=== PATIENT | male | born 1955 | race Caucasian/White ===

== ENCOUNTER 2020-04-30 14:10 | Inpatient (IN) | payer OTHER ==
[~2020-04-30] VITALS: Ht 185.4 cm; Wt 61.2 kg
--- NOTE | 2020-04-30 14:25 | NUR ---
ED Nurse Note: [facility]. hotel maintenance worker of pt called ambulance bc patient had SOB. He has history of emphysema, lung surgery, COPD. Pt is set up on monitor. O2 sat is 98% RA. Pt is alert and ox4.
[2020-04-30 14:30] VITALS: BP 123/71
[2020-04-30] MEDS ORDERED: Solu-MEDROL 125mg Inj IVP ONE (14:30)
--- NOTE | 2020-04-30 14:38 | Emergency Room Report ---
History of Present Illness General Chief Complaint: Upper Respiratory Illness Source: EMS Present Illness HPI Disclaimer: Please note that this report is being documented using DRAGON technology. This can lead to erroneous entry secondary to incorrect interpretation by the dictating instrument. HPI: 64-year-old male presents for reported shortness of breath. Patient has a history of COPD. He is an active smoker. Also history of TB which has been treated. He denies any fevers, nausea, vomiting, diarrhea. He denies any chest pain. He states his cough is chronic in nature. Does use Spiriva and albuterol. Currently living in a [facility]. PMH: COPD, TB, PSH: Reviewed Social Hx: Patient is an active smoker, active drinker. Allergies: Coded Allergies: No Known Allergies (Unverified , 04/30/20) COVID-19 Screening Contact w/high risk pt: No Experienced COVID-19 symptoms?: Yes COVID-19 Testing performed MEDICATION MANAGER: No - UNK Patient History Reviewed Nursing Documentation: PMH: Agreed; PSxH: Agreed Nursing Documentation-PMH Past Medical History: No History, Except For Hx COPD: Yes - TB, emphysema Review of Systems All Other Systems: negative except mentioned in HPI Physical Exam Vital Signs Date Time Temp Pulse Resp B/P (MAP) Pulse Ox O2 Delivery O2 Flow Rate FiO2 04/30/20 14:03 98.2 105 20 116/67 (83) 96 Nasal Cannula 3.0 Sp02 EP Interpretation: reviewed, other - Normal O2 saturation on oxygen General Appearance: well appearing, no apparent distress Head: normocephalic, atraumatic Eyes: bilateral eye PERRL, bilateral eye EOMI ENT: hearing grossly normal, moist mucus membranes Neck: full range of motion, supple Respiratory: lungs clear, normal breath sounds, no rhonchi, no respiratory distress, no retraction, no wheezing Cardiovascular #1: normal peripheral pulses, no murmur, tachycardia Gastrointestinal: non tender, soft, non-distended, no guarding Neurologic: alert, oriented x3, no focal defects Skin: normal color, warm/dry Medical Decision Making Diagnostic Impression: Primary Impression: COPD exacerbation Additional Impression: Suspected COVID-19 virus infection ER Course MDM: Differential diagnosis included but not limited to COPD exacerbation, COVID -19, pneumonia, to name a few Clinical course-basic laboratory studies were sent. Patient given IV steroids, IV antibiotics and coronavirus testing was sent. I spoke with the primary care doctor who wished to admit the patient for further observation. Will place on the medical floor for further observation. Labs - Laboratory Tests Test 04/30/20 14:49 White Blood Count 4.9 K/UL (4.8-10.8) Red Blood Count 4.72 M/UL (4.70-6.10) Hemoglobin 15.0 G/DL (14.2-18.0) Hematocrit 43.5 % (42.0-52.0) Mean Corpuscular Volume 92 FL (80-99) Mean Corpuscular Hemoglobin 31.7 PG (27.0-31.0) H Mean Corpuscular Hemoglobin Concent 34.4 G/DL (32.0-36.0) Red Cell Distribution Width 12.8 % (11.6-14.8) Platelet Count 123 K/UL (150-450) L Mean Platelet Volume 6.2 FL (6.5-10.1) L Neutrophils (%) (Auto) 57.0 % (45.0-75.0) Lymphocytes (%) (Auto) 21.0 % (20.0-45.0) Monocytes (%) (Auto) 13.2 % (1.0-10.0) H Eosinophils (%) (Auto) 7.2 % (0.0-3.0) H Basophils (%) (Auto) 1.6 % (0.0-2.0) Sodium Level 143 MMOL/L (136-145) Potassium Level 3.9 MMOL/L (3.5-5.1) Chloride Level 101 MMOL/L (98-107) Carbon Dioxide Level 37 MMOL/L (21-32) H Anion Gap 5 mmol/L (5-15) Blood Urea Nitrogen 8 mg/dL (7-18) Creatinine 0.6 MG/DL (0.55-1.30) Estimated Glomerular Filtration Rate > 60 mL/min (>60) Glucose Level 118 MG/DL (74-106) H Calcium Level 8.4 MG/DL (8.5-10.1) L Total Bilirubin 0.1 MG/DL (0.2-1.0) L Aspartate Amino Transferase (AST) 80 U/L (15-37) H Alanine Aminotransferase (ALT) 75 U/L (12-78) Alkaline Phosphatase 215 U/L (46-116) H Total Protein 7.3 G/DL (6.4-8.2) Albumin 3.5 G/DL (3.4-5.0) Globulin 3.8 g/dL Albumin/Globulin Ratio 0.9 (1.0-2.7) L On reevaluation: Patient was in no acute distress Plan-patient admitted to the medical floor Chest X-Ray Diagnostic Results Chest X-Ray Diagnostic Results : Chest X-Ray Ordered: Yes # of Views/Limited/Complete: 1 View Indication: Shortness of Breath EP Interpretation: Yes Interpretation: no effusion, no pneumothorax Impression: No acute disease Electronically Signed by: Velasquez Chen MD Last Vital Signs Date Time Temp Pulse Resp B/P (MAP) Pulse Ox O2 Delivery O2 Flow Rate FiO2 04/30/20 14:03 98.2 105 20 116/67 (83) 96 Nasal Cannula 3.0 Disposition: ADMITTED INPATIENT Condition: Serious Velasquez Chen M.D. Apr 30, 2020 14:38
[2020-04-30 15:22] LABS: BASOPHILS % (AUTO) 1.6 % (0.0-2.0); EOSINOPHILS % (AUTO) 7.2 % (0.0-3.0); HEMATOCRIT 43.5 % (42.0-52.0); MEAN CORPUSCULAR VOLUME 92 FL (80-99); MONOCYTES % (AUTO) 13.2 % (1.0-10.0); PLATELET COUNT 123 K/UL (150-450); RED BLOOD COUNT 4.72 M/UL (4.70-6.10); RED CELL DISTRIBUTION WIDTH 12.8 % (11.6-14.8); WHITE BLOOD COUNT 4.9 K/UL (4.8-10.8)
[2020-04-30 15:30] LABS: ANION GAP 5 mmol/L (5-15); BLOOD UREA NITROGEN 8 mg/dL (7-18); CALCIUM 8.4 MG/DL (8.5-10.1); CARBON DIOXIDE 37 MMOL/L (21-32); CHLORIDE 101 MMOL/L (98-107); CREATININE 0.6 MG/DL (0.55-1.30); POTASSIUM 3.9 MMOL/L (3.5-5.1); SODIUM 143 MMOL/L (136-145)
[2020-04-30 15:35] LABS: ALANINE AMINOTRANSFERASE 75 U/L (12-78); ALBUMIN 3.5 G/DL (3.4-5.0); ALBUMIN/GLOBULIN RATIO 0.9 (1.0-2.7); ALKALINE PHOSPHATASE 215 U/L (46-116); ASPARTATE AMINO TRANSFERASE 80 U/L (15-37); BILIRUBIN,TOTAL 0.1 MG/DL (0.2-1.0)
--- NOTE | 2020-04-30 15:43 | Diagnostic Imaging Report ---
Indication: Shortness of breath Technique: One view of the chest Comparison: none Findings: Lungs are hyperinflated. There are bilateral upper lobe bullous changes. The heart size is normal. Surgical hardware is seen in both shoulders. No infiltrates, effusions, or congestion Impression: No acute process
[2020-04-30 16:47] VITALS: BP 122/70
[2020-04-30] MEDS ORDERED: Azithromycin 500 MG in NS 275 ML IV ONE (17:30)
--- NOTE | 2020-04-30 17:37 | NUR ---
ED Nurse Note: Report given to Mariano SOLIS.
--- NOTE | 2020-04-30 18:00 | NUR ---
ED Nurse Note: Pt taken up to MS unit with all belongings. Pt alert and orientedx4. No acute distress.
--- NOTE | 2020-04-30 18:15 | NUR ---
CHARGE NURSE NOTE: Received patient from ED in stable condition from [facility](r/o COVID 19, swabbed in ER), no signs of pain or distress noted. Pt had $1497, sent with Nursing house supervisor Lee Ann and security to the hospital safe. Sacral rash, redness noted, picture taken by primary nurse Mariano. was called, message left that pt needs an adm. orders.
--- NOTE | 2020-04-30 19:06 | NUR ---
HAND-OFF: Patient is in the bed watching TV, O2 @ 2l via NC is inplace. No acute distress noted, call light is within reach. Report given to
[2020-04-30] MEDS ORDERED: Albuterol/Ipratropium 3ml neb HHN PRN (19:30)
[2020-04-30] MEDS ORDERED: Promethazine/Codeine 5ml UD ORAL PRN (19:30)
[2020-04-30] MEDS ORDERED: Miralax 17gm pkt ORAL PRN (19:30)
--- NOTE | 2020-04-30 19:30 | NUR ---
NURSE NOTES: Pt. received from IRMA Quintana. Pt. AAOx4, on NC 3L breathing even and unlabored, no complaints of pain at this time. IV right forearm 20g intact and patent. Belongings list checked and verified against patient's belongings. Rash noted on lower back, pictures taken. Pt. oriented to room and plan of care, call light provided, smoking policy reviewed. Bed is low and locked, side rails x2 up, bed alarm active, and call light in reach.
[2020-04-30 20:00] VITALS: BP 157/84
[2020-04-30] MEDS: cefTRIAXone 1 GM in D5W 55 ML IVPB SCH (20:05)
[2020-04-30] MEDS: Heparin 5000 units/ml inj SUBQ SCH (20:06)
[2020-05-01] VITALS: BP 150/84
[2020-05-01] MEDS ORDERED: GUAIFENESIN-CO118 M1 ORAL (00:51)
[2020-05-01] MEDS ORDERED: TRAZODONE HCL300 MG ORAL (00:51)
[2020-05-01] MEDS ORDERED: NITRO0.4 SL (00:51)
[2020-05-01 04:00] VITALS: BP 142/84
[2020-05-01 06:31] LABS: HEMATOCRIT 46.2 % (42.0-52.0); HEMOGLOBIN 15.5 G/DL (14.2-18.0); MEAN CORPUSCULAR VOLUME 92 FL (80-99); PLATELET COUNT 121 K/UL (150-450); RED BLOOD COUNT 5.01 M/UL (4.70-6.10); RED CELL DISTRIBUTION WIDTH 12.1 % (11.6-14.8); WHITE BLOOD COUNT 2.2 K/UL (4.8-10.8)
[2020-05-01 07:04] LABS: ALBUMIN 3.3 G/DL (3.4-5.0); ANION GAP 6 mmol/L (5-15); BLOOD UREA NITROGEN 10 mg/dL (7-18); CALCIUM 9.3 MG/DL (8.5-10.1); CARBON DIOXIDE 34 MMOL/L (21-32); CHLORIDE 96 MMOL/L (98-107); CREATININE 0.5 MG/DL (0.55-1.30); POTASSIUM 3.7 MMOL/L (3.5-5.1); SODIUM 136 MMOL/L (136-145)
--- NOTE | 2020-05-01 07:18 | NUR ---
HAND-OFF: Report given to IRMA Arias. Endorsed pt. pending sputum collection.
--- NOTE | 2020-05-01 07:43 | NUR ---
NURSE NOTES: PT AXOX4, CALM, RESTING IN BED. IN NO APPARENT DISTRESS AT THIS TIME. PT COMPLAINS OF SOB. RESPIRATIONS ARE EVEN AND UNLABORED AT THIS TIME PER HUMAN INTELLIGENCE. PT IS ON 3L NASAL CANNULA. PT STATES HE HAD A SEIZURE 2 WEEKS AGO AND SUSTAINED A FALL WITH NO INJURIES. BEDSIDE RAILS ARE PADDED. PT STATES HE IS UNABLE TO WALK, BUT RN OBSERVED PT IS ABLE TO MOVE LEGS AGAINST GRAVITY INDEPENDENTLY. BED IN LOWEST POSITION WITH BEDSIDE RAILS X2 RAISED. CALL LIGHT WITHIN REACH. URINAL AT BEDSIDE. WILL CONTINUE TO MONITOR.
[2020-05-01 08:00] VITALS: BP 136/71
[2020-05-01] MEDS: Heparin 5000 units/ml inj SUBQ SCH ×2 (08:11→20:23)
--- NOTE | 2020-05-01 10:32 | NUR ---
CASE MANAGEMENT:INITIAL REVIEW 64 YR OLD MALE BIBA FROM HOME CC;UPPER RESPIRATORY ILLNESS SI;COPD EXACERBATION. SUSPECTED COVID-19. 98.2 105 20 123/71 96% 3L NC CO2 37 BG 118 CA 8.4 AST 80 CXR ~ NO ACUTE PROCESS COVID-19 PCR ~ RESULT PENDING IS;ZITHROMAX IV SOLU-MEDROL IV ADMITTED TO MED SURG 04/30/20 @ 1823 MED SURG STATUS DCP;PATIENT IS FROM HOME
[2020-05-01] MEDS: Albuterol 90mcg Inhaler 8gm INH PRN ×2 (10:40→15:48)
--- NOTE | 2020-05-01 11:00 | NUR ---
NURSE NOTES: PT WAS EDUCATED TO REPOSITION OFTEN TO PREVENT SKIN BREAKDOWN. PILLOW TO ELEVATE HEELS. OPTIFOAM APPLIED TO BILATERAL HIPS AND HEELS FOR PROTECTION.
[2020-05-01 12:00] VITALS: BP 146/71
--- NOTE | 2020-05-01 14:29 | NUR ---
NURSE NOTES: DR DENISE AT BEDSIDE AND MADE AWARE OF WBC 2.2 TODAY. NO NEW ORDERS GIVEN.
[2020-05-01] MEDS ORDERED: TraZODone 50mg tab ORAL PRN (14:30)
--- NOTE | 2020-05-01 14:32 | Consultation ---
History of Present Illness General Date patient seen: May 01, 2020 Chief Complaint: Upper Respiratory Illness Present Illness HPI 64-year-old male hx of COPD, smoking, treated TB presented to ER for shortness of breath with some yellow phlegm. He denies any fevers, nausea, vomiting, diarrhea. He denies any chest pain. He looks very cachectic and slightly short of breath. Allergies: Coded Allergies: No Known Allergies (Unverified , 04/30/20) Medication History Scheduled Trazodone Hcl (Trazodone Hcl), 50 MG ORAL BEDTIME, (Reported) Scheduled PRN Guaifenesin/Codeine Phos* (Robitussin Ac*), 5 ML ORAL Q4H PRN for For Cough, ( Reported) Nitroglycerin 0.4MG table* (Nitroglycerin*), 0.4 MG SL .Q5MIN X 3 DOSES PRN for CHEST PAIN, (Reported) Patient History Healthcare decision maker N Resuscitation status Advanced Directive on File Past Medical/Surgical History Past Medical/Surgical History: (1) Severe protein-calorie malnutrition (2) Emphysema of lung Review of Systems All Other Systems: negative except mentioned in HPI Physical Exam General Appearance: WD/WN, no apparent distress Lines, tubes and drains: peripheral HEENT: normocephalic, atraumatic Neck: non-tender, normal alignment Respiratory/Chest: chest wall non-tender, lungs clear Breasts: no masses Cardiovascular/Chest: normal peripheral pulses Abdomen: normal bowel sounds Genitourinary/Rectal: normal genital exam Extremities: normal range of motion Last 24 Hour Vital Signs Date Time Temp Pulse Resp B/P (MAP) Pulse Ox O2 Delivery O2 Flow Rate FiO2 05/01/20 12:00 97.2 72 20 146/71 (96) 95 05/01/20 09:00 Nasal Cannula 3.0 05/01/20 08:00 98.1 84 20 136/71 (92) 96 05/01/20 04:00 97.9 80 18 142/84 (103) 97 05/01/20 00:00 97.3 78 20 150/84 (106) 96 04/30/20 21:59 Nasal Cannula 3.0 04/30/20 20:00 97.3 73 20 157/84 (108) 96 04/30/20 18:00 98.2 92 17 132/76 96 Nasal Cannula 2.0 04/30/20 16:47 98.2 90 18 122/70 99 Nasal Cannula 04/30/20 14:30 98.2 98 19 123/71 98 Nasal Cannula 04/30/20 14:30 98 19 Room Air 98 Intake and Output 04/30/20 05/01/20 19:00 07:00 Intake Total 655 ml Output Total 950 ml Balance -295 ml Intake Oral 600 ml IV Total 55 ml Output Urine Total 950 ml # Voids 4 Laboratory Tests Test 04/30/20 14:49 05/01/20 04:45 White Blood Count 4.9 K/UL (4.8-10.8) 2.2 K/UL (4.8-10.8) #L Red Blood Count 4.72 M/UL (4.70-6.10) 5.01 M/UL (4.70-6.10) Hemoglobin 15.0 G/DL (14.2-18.0) 15.5 G/DL (14.2-18.0) Hematocrit 43.5 % (42.0-52.0) 46.2 % (42.0-52.0) Mean Corpuscular Volume 92 FL (80-99) 92 FL (80-99) Mean Corpuscular Hemoglobin 31.7 PG (27.0-31.0) H 31.0 PG (27.0-31.0) Mean Corpuscular Hemoglobin Concent 34.4 G/DL (32.0-36.0) 33.6 G/DL (32.0-36.0) Red Cell Distribution Width 12.8 % (11.6-14.8) 12.1 % (11.6-14.8) Platelet Count 123 K/UL (150-450) L 121 K/UL (150-450) L Mean Platelet Volume 6.2 FL (6.5-10.1) L 6.0 FL (6.5-10.1) L Neutrophils (%) (Auto) 57.0 % (45.0-75.0) % (45.0-75.0) Lymphocytes (%) (Auto) 21.0 % (20.0-45.0) % (20.0-45.0) Monocytes (%) (Auto) 13.2 % (1.0-10.0) H % (1.0-10.0) Eosinophils (%) (Auto) 7.2 % (0.0-3.0) H % (0.0-3.0) Basophils (%) (Auto) 1.6 % (0.0-2.0) % (0.0-2.0) Sodium Level 143 MMOL/L (136-145) 136 MMOL/L (136-145) Potassium Level 3.9 MMOL/L (3.5-5.1) 3.7 MMOL/L (3.5-5.1) Chloride Level 101 MMOL/L (98-107) 96 MMOL/L (98-107) L Carbon Dioxide Level 37 MMOL/L (21-32) H 34 MMOL/L (21-32) H Anion Gap 5 mmol/L (5-15) 6 mmol/L (5-15) Blood Urea Nitrogen 8 mg/dL (7-18) 10 mg/dL (7-18) Creatinine 0.6 MG/DL (0.55-1.30) 0.5 MG/DL (0.55-1.30) L Estimat Glomerular Filtration Rate > 60 mL/min (>60) > 60 mL/min (>60) Glucose Level 118 MG/DL (74-106) H 180 MG/DL (74-106) H Calcium Level 8.4 MG/DL (8.5-10.1) L 9.3 MG/DL (8.5-10.1) Total Bilirubin 0.1 MG/DL (0.2-1.0) L Aspartate Amino Transf (AST/SGOT) 80 U/L (15-37) H Alanine Aminotransferase (ALT/SGPT) 75 U/L (12-78) Alkaline Phosphatase 215 U/L (46-116) H Total Protein 7.3 G/DL (6.4-8.2) Albumin 3.5 G/DL (3.4-5.0) 3.3 G/DL (3.4-5.0) L Globulin 3.8 g/dL Albumin/Globulin Ratio 0.9 (1.0-2.7) L Differential Total Cells Counted 100 Neutrophils % (Manual) 77 % (45-75) H Lymphocytes % (Manual) 17 % (20-45) L Monocytes % (Manual) 6 % (1-10) Eosinophils % (Manual) 0 % (0-3) Basophils % (Manual) 0 % (0-2) Band Neutrophils 0 % (0-8) Platelet Estimate Decreased L Platelet Morphology Normal Red Blood Cell Morphology Normal Phosphorus Level 3.0 MG/DL (2.5-4.9) Microbiology Date/Time Source Procedure Growth Status 04/30/20 17:00 Rectum Received Height (Feet): 6 Height (Inches): 1.00 Weight (Pounds): 130 Medications Current Medications Medications (Trade) Dose Ordered Sig/Martha Route PRN Reason Start Time Stop Time Status Last Admin Dose Admin Acetaminophen (Tylenol) 650 mg Q4H PRN ORAL T>100.5 04/30/20 19:30 05/30/20 19:29 Albuterol Sulfate (Proventil MDI) 2 puff Q4H PRN INH Shortness of Breath 05/01/20 07:30 07/30/20 07:29 05/01/20 10:40 Albuterol/ Ipratropium (Albuterol/ Ipratropium) 3 ml Q4H PRN HHN Shortness of Breath 04/30/20 19:30 05/05/20 19:29 Azithromycin 250 mg/Dextrose 275 ml @ 275 mls/hr Q24HRS IV 05/01/20 18:00 05/06/20 17:59 Ceftriaxone Sodium 1 gm/ Dextrose 55 ml @ 110 mls/hr Q24H IVPB 04/30/20 20:00 05/07/20 19:59 04/30/20 20:05 Dexamethasone (Decadron) 4 mg DAILY ORAL 05/01/20 09:00 05/31/20 08:59 05/01/20 08:06 Dextrose (Dextrose 50%) 25 ml Q30M PRN IV Hypoglycemia 04/30/20 19:30 07/29/20 19:29 Dextrose (Dextrose 50%) 50 ml Q30M PRN IV Hypoglycemia 04/30/20 19:30 07/29/20 19:29 Heparin Sodium (Porcine) (Heparin 5000 units/ml) 5,000 units EVERY 12 HOURS SUBQ 04/30/20 21:00 06/14/20 20:59 05/01/20 08:11 Ondansetron HCl (Zofran) 4 mg Q6H PRN IVP Nausea & Vomiting 04/30/20 19:30 05/30/20 19:29 05/01/20 14:13 Polyethylene Glycol (Miralax) 17 gm DAILYPRN PRN ORAL Constipation 04/30/20 19:30 05/30/20 19:29 Promethazine HCl/ Codeine (Phenergan with Codeine) 5 ml Q6H PRN ORAL cough 04/30/20 19:30 05/30/20 19:29 Theophylline (Carlos-Dur) 100 mg DAILY ORAL 05/01/20 15:00 07/30/20 14:59 Trazodone HCl (Desyrel) 50 mg HSPRN PRN ORAL INSOMNIA 05/01/20 14:30 05/31/20 14:29 Assessment/Plan Problem List: (1) COPD exacerbation ICD Codes: J44.1 - Chronic obstructive pulmonary disease with (acute) exacerbation SNOMED: 852606883 (2) Suspected COVID-19 virus infection ICD Codes: Z20.828 - Contact with and (suspected) exposure to other viral communicable diseases SNOMED: 794162423 (3) Emphysema of lung ICD Codes: J43.9 - Emphysema, unspecified SNOMED: 45351561 (4) Severe protein-calorie malnutrition ICD Codes: E43 - Unspecified severe protein-calorie malnutrition SNOMED: 341808860, 226879200, 933012822 Assessment/Plan: check sputum iv abx steroids titrate fio2 to sat of 92% Leighann Underwood MD May 01, 2020 14:32
[2020-05-01] MEDS: Theophylline ER 100mg ORAL SCH (15:42)
[2020-05-01 16:00] VITALS: BP 124/74
--- NOTE | 2020-05-01 16:57 | NUR ---
INSURANCE ALL AVAILABLE CLINICALS HAVE BEEN FAXED TO [facility] P: [phone] F: [phone]
[2020-05-01] MEDS: Azithromycin 250 MG in D5W 275 ML IV SCH (17:34)
--- NOTE | 2020-05-01 18:00 | NUR ---
NURSE NOTES: PT WAS GIVEN PRN IV ZOFRAN ORDERED. PT REPORTED FEELING QUEASY. UPON REASSESSMENT, PT STATED HE FELT MUCH BETTER, BUT STILL UNABLE TO TOLERATE FOOD. ONLY EATING SMALL BITES OF FOOD. RN ENCOURAGED PO FLUIDS THROUGHOUT THE DAY DUE TO DARK YELLOW URINE. WILL CONTINUE TO MONITOR.
--- NOTE | 2020-05-01 19:06 | NUR ---
HAND-OFF: Report given to Sasha VELAZQUEZ RN.
--- NOTE | 2020-05-01 19:19 | NUR ---
NURSE NOTES: Pt. received from IRMA Arias. Pt. AAOx4, breathing on NC 2L, no indications of respiratory distress and no complaints of pain. IV noted right forearm intact and patent, saline locked. Bed is low and locked, side rails x3 up, bed alarm active, and call light in reach.
--- NOTE | 2020-05-01 19:52 | History & Physical ---
History and Physical History & Physicial job number: [id number]. Vishal Tran MD May 01, 2020 19:52
[2020-05-01 20:00] VITALS: BP 124/79
[2020-05-01] MEDS: TraZODone 50mg tab ORAL SCH (20:22)
[2020-05-01] MEDS: cefTRIAXone 1 GM in D5W 55 ML IVPB SCH (20:22)
--- NOTE | 2020-05-01 21:45 | History and Physical Report ---
DATE OF ADMISSION: 04/30/2020 CHIEF COMPLAINT: Shortness of breath. HISTORY OF PRESENT ILLNESS: This is a 64-year-old gentleman with past medical history significant for chronic smoker with COPD, prior history of treated tuberculosis, who presented to the emergency department complaining of shortness of breath associated with yellowish phlegm. The patient denies any fever, chills, nausea, vomiting, diarrhea, or chest pain. He shortly after initial evaluation in the emergency room, the patient was admitted to the hospital with shortness of breath, possible due to acute COPD exacerbation as well as rule-out COVID-19 infection. PAST MEDICAL HISTORY/PAST SURGICAL HISTORY: As above. History of COPD and emphysema, severe protein-calorie malnutrition, and severe weakness. MEDICATIONS AT HOME: Please refer to medication reconciliation. ALLERGIES: No known drug allergies. SOCIAL HISTORY: The patient is an ex-smoker. Denies any alcohol or substance use. FAMILY HISTORY: Noncontributory. REVIEW OF SYSTEMS: Mostly as above. Denies any hematuria or hematochezia. PHYSICAL EXAMINATION: VITAL SIGNS: On admission, temperature is 98.2, pulse of 98, respirations 19, blood pressure 123/71. GENERAL: The patient is awake, responsive, in no acute distress, chronically ill-appearing. HEAD AND NECK: Pupils are equal and reactive to light. Extraocular movements intact. Neck was supple. No JVD. LUNGS: Good air entry. No wheezing or rales. HEART: S1, S2. Regular rhythm. No murmur or gallops. ABDOMEN: Soft, nondistended, nontender. Positive bowel sounds. EXTREMITIES: No cyanosis, clubbing, or edema. NEUROLOGIC: Cranial nerves II through XII grossly intact. Motor is 5/5 in all extremities. Gait was not assessed due to the patient's status. RECTAL: Refused and deferred. GENITOURINARY: Refused and deferred. PSYCHIATRIC: Mood and affect is intact. LABORATORY AND DIAGNOSTIC DATA: Laboratory on admission, WBC of 4.9, hemoglobin 15, hematocrit 43, and platelet is 123,000. Sodium 143, potassium 3.9, chloride 101, bicarb 37, BUN 8, creatinine 0.6, GFR greater than 60, and glucose is 118. Total bilirubin of 0.1, AST of 80, ALT of 75, alkaline phosphatase 215. Albumin is 2.5. Globulin is 3.8. Chest x-ray, no acute process. ASSESSMENT: 1. Shortness of breath, most likely secondary to the acute COPD exacerbation. 2. Rule out COVID-19 viral infection. 3. Chronic smoker with emphysematous lung. 4. Severe protein-calorie malnutrition. 5. Inability to ambulate. PLAN: Admit the patient to medical floor. We will follow up with broad-spectrum antibiotic with azithromycin and Rocephin. Nebulizer treatment. Code status is Full Code. DVT prophylaxis, heparin subcu. We will follow up with Dr. Underwood from Pulmonary/Critical Care and COVID-19 testing. We will consider discharge planning to the nursing facility, [facility]. We will follow up with HIV test. Vishal Tran M.D. DR: Rhett JOB#: [id number] CC:
[2020-05-02] VITALS: BP 117/65
--- NOTE | 2020-05-02 00:31 | NUR ---
NURSE NOTES: Pt. with minor complaints of nausea, offered antiemetic as ordered but pt. refused. Pt. able to tolerate PO fluids and 1/2 sandwich at this time, no subsequent complaints of nausea.
[2020-05-02 04:00] VITALS: BP 119/72
--- NOTE | 2020-05-02 06:09 | NUR ---
NURSE NOTES: Dr. Tran notified pt. is MRSA positive nares, no new orders.
[2020-05-02 06:18] LABS: BASOPHILS % (AUTO) 0.2 % (0.0-2.0); EOSINOPHILS % (AUTO) 0.5 % (0.0-3.0); HEMATOCRIT 47.1 % (42.0-52.0); HEMOGLOBIN 15.7 G/DL (14.2-18.0); LYMPHOCYTES % (AUTO) 21.3 % (20.0-45.0); MEAN CORPUSCULAR VOLUME 92 FL (80-99); PLATELET COUNT 140 K/UL (150-450); RED BLOOD COUNT 5.12 M/UL (4.70-6.10); WHITE BLOOD COUNT 4.8 K/UL (4.8-10.8)
[2020-05-02 06:29] LABS: ALANINE AMINOTRANSFERASE 124 U/L (12-78); ALBUMIN 3.5 G/DL (3.4-5.0); ALBUMIN/GLOBULIN RATIO 0.9 (1.0-2.7); ALKALINE PHOSPHATASE 138 U/L (46-116); ANION GAP 6 mmol/L (5-15); ASPARTATE AMINO TRANSFERASE 138 U/L (15-37); BILIRUBIN,TOTAL 0.4 MG/DL (0.2-1.0); BLOOD UREA NITROGEN 10 mg/dL (7-18); CARBON DIOXIDE 34 MMOL/L (21-32); CHLORIDE 98 MMOL/L (98-107); CREATININE 0.7 MG/DL (0.55-1.30); PHOSPHORUS 3.6 MG/DL (2.5-4.9); POTASSIUM 3.9 MMOL/L (3.5-5.1); SODIUM 138 MMOL/L (136-145)
--- NOTE | 2020-05-02 07:32 | NUR ---
HAND-OFF: Report given to IRMA Hickman.
[2020-05-02 08:00] VITALS: BP 112/69
--- NOTE | 2020-05-02 08:01 | NUR ---
NURSE NOTES: Patient awake, alert x4; on Nasal cannula 2 Liters, no sing of shortness of breath and no distress; no sing of chest pain; IV Right For-Arm TKO; side rails up x2, breaks engaged, bed at lowest position; Urinal within reach; will keep monitoring.
--- NOTE | 2020-05-02 08:52 | NUR ---
NURSE NOTES: Microbiology called and stated that 2 vials blood came back positive. One is gram positive cocci in clusters. The other came in and is positive for gram positive rods. WIll notify RN and MD.
[2020-05-02] MEDS: Heparin 5000 units/ml inj SUBQ SCH ×2 (09:00→21:28)
[2020-05-02] MEDS: Theophylline ER 100mg ORAL SCH (09:00)
--- NOTE | 2020-05-02 09:22 | NUR ---
NURSE NOTES: I was told by charge nurse, Silvio that, patient's blood culture bottle one is Gram positive Cocci in cluster and the 2nd bottle is Gram positive Rods; I communicated this microbiology results to MD Underwood; waiting for order;
--- NOTE | 2020-05-02 09:27 | NUR ---
NURSE NOTES: MD Branham is aware of the blood culture results which is reported by microbiology; waiting for order;
--- NOTE | 2020-05-02 09:51 | NUR ---
RD ASSESSMENT & RECOMMENDATIONS SEE CARE ACTIVITY FOR COMPLETE ASSESSMENT DAILY ESTIMATED NEEDS: Needs based on COPD, underweight/ 59kg 30-35 kcals/kg 3590-3024 total kcals 1-1.5 g protein/kg 59-89 g total protein 25-30 mL/kg 4849-3710 total fluid mLs NUTRITION DIAGNOSIS: Increased kcal/prot needs R/T underweight status, pulmonary dx as evidenced by BMI of 17.2, pt @ 71% IBW, h/o COPD. CURRENT DIET:REGULAR PO DIET RECOMMENDATIONS: Liberalized REGULAR/ texture as tolerated + Ensure Enlive TID w/ meals ADDITIONAL RECOMMENDATIONS: * Calibrated bedscale wt for accurate CBW * Monitor for continued nausea -> w/ continued nausea, consider add zofran ~30 mins prior to meal times -> add gingerale to tray * Ensure Enlive TID w/ meals * Monitor BGs closely while on Decadron, need for carb restriction * MVI x 1 once nausea resolves
[2020-05-02 12:00] VITALS: BP 118/70
[2020-05-02] MEDS ORDERED: Vancomycin 1.25gm/NS Premix IVPB ONE (13:00)
--- NOTE | 2020-05-02 13:56 | NUR ---
NURSE NOTES: Wound care nurse assessed patient's wound on the back and heels; Wound care provided; picture uploaded; patient tolerated well;
[2020-05-02 16:00] VITALS: BP 121/77
--- NOTE | 2020-05-02 17:05 | NUR ---
CASE MANAGEMENT:REVIEW SI;COPD EXACERBATION. COVID-19 RULE OUT~NOT DETECTED. 98.1 90 20 121/77 95% 3L NC PLT 140 CO2 34 MAG 1.7 AST 138 ALT 124 ALK PHOS 138 IS;VANCOMYCIN IV ZITHROMAX SRINATH-DUR PO DECADRON PO PROVENTIL INH HEPARIN SUBQ Q12 ROCEPHIN IV DUO NEB HHN MED SURG STATUS DCP;FROM HOME
[2020-05-02] MEDS: Azithromycin 250 MG in D5W 275 ML IV SCH (18:07)
--- NOTE | 2020-05-02 18:24 | NUR ---
NURSE NOTES: Patient is negative for COVID-19 and I communicated MD Tran if MD want us to discontinue the isolation or repeat another swap for COVID-19; waiting for order;
--- NOTE | 2020-05-02 19:31 | NUR ---
NURSE NOTES: MD Tran gave me the order to DC isolation; order carried out as order given; endorsed to the incoming nurse Marck that Isolation for COVID-19 is discontinued;
--- NOTE | 2020-05-02 19:34 | NUR ---
HAND-OFF: Report given to IRMA Sears. Plan of care endorsed to the incoming nurse; isolation statues updated and patient no more COVID-19 isolation;
--- NOTE | 2020-05-02 19:41 | NUR ---
NURSE NOTES: Patient awake, alert x4. On nasal cannula 2L with no signs of distress or SOB. No C/O pain at this time. IV intact and patent. Bed locked and in lowest position. Call light in reach. Will follow plan of care.
[2020-05-02 20:00] VITALS: BP 116/71
[2020-05-02] MEDS: cefTRIAXone 1 GM in D5W 55 ML IVPB SCH (21:26)
[2020-05-02] MEDS: TraZODone 50mg tab ORAL SCH (21:26)
[2020-05-03] VITALS (7 sets, daily range): BP systolic 87–122; BP diastolic 55–74
[2020-05-03] MEDS: Vancomycin 750mg/NS 275ml IVPB SCH ×4 (00:03→13:08)
--- NOTE | 2020-05-03 04:54 | NUR ---
NURSE NOTES: Patient noted to be tachycardic with a heart rate from 130-201bpm. Patient awake and alert x4 with no C/O chest pain or dizziness. States he felt a slight flutter in his chest earlier. Left message for Dr. Tran. STAT EKG done by RT. Results showing SVT with a vent rate of 190bpm. Left message for Dr. Tran with results. Awaiting callback. communications coordinator and nursing district supervisor aware.
[2020-05-03] MEDS ORDERED: Metoprolol Tartrate 5mg/5ml Inj IVP PRN ×2 (06:15→14:15)
[2020-05-03 06:35] LABS: BASOPHILS % (AUTO) 0.6 % (0.0-2.0); EOSINOPHILS % (AUTO) 0.2 % (0.0-3.0); HEMATOCRIT 48.6 % (42.0-52.0); HEMOGLOBIN 16.1 G/DL (14.2-18.0); LYMPHOCYTES % (AUTO) 26.5 % (20.0-45.0); MEAN CORPUSCULAR VOLUME 93 FL (80-99); MONOCYTES % (AUTO) 14.6 % (1.0-10.0); NEUTROPHILS % (AUTO) 58.1 % (45.0-75.0); PLATELET COUNT 154 K/UL (150-450); RED BLOOD COUNT 5.24 M/UL (4.70-6.10); RED CELL DISTRIBUTION WIDTH 11.9 % (11.6-14.8); WHITE BLOOD COUNT 7.1 K/UL (4.8-10.8)
[2020-05-03 06:42] LABS: ANION GAP 9 mmol/L (5-15); BLOOD UREA NITROGEN 15 mg/dL (7-18); CALCIUM 9.2 MG/DL (8.5-10.1); CARBON DIOXIDE 30 MMOL/L (21-32); CHLORIDE 100 MMOL/L (98-107); CREATININE 0.7 MG/DL (0.55-1.30); POTASSIUM 3.5 MMOL/L (3.5-5.1); SODIUM 139 MMOL/L (136-145)
--- NOTE | 2020-05-03 06:44 | NUR ---
NURSE NOTES: Patient transferred to Tele per Dr. Tran. New orders received; will endorse to telecommunicator supervisor. Addendum: 05/03/20 at 0651 by NESSA HARRIS RN Belongings sent with patient. Endorsed that home meds are in pharmacy and patient's galindo in safe.
--- NOTE | 2020-05-03 06:45 | NUR ---
HAND-OFF: Report given to IRMA Mary.
--- NOTE | 2020-05-03 07:02 | NUR ---
NURSE NOTES: Received patient report from IRMA Coleman. Patient arrived to unit at 0600. Patient reports feeling no pain at the moment. He reports feeling flutters in his chest. Upon arrival he was connected to the environmental monitoring specialist where he showed a heart rate of 190 bpm. New IV was placed on patient, patent and flushed. There are no signs of erythema, infiltration, or bleeding. Dr. Tran had ordered Lopressor IVP 5 mg. Patients heart rate went down to 113 bpm before giving medication. Orders were to give medication for heart rate greater than 110. After Lopressor was given, vitals were stable except for a low blood pressure of 87/ 65. Called Dr. Tran to let him know about low BP and asked if we could put patient on IV fluids. Awaiting callback. Bed is in the lowest position, call light within reach, side rails up and padded. Will continue plan of care.
--- NOTE | 2020-05-03 07:39 | NUR ---
HAND-OFF: Report given to IRMA Hawk. Patient shows no signs of distress or pain at the time. Endorsed admittion pictures and plan of care.
--- NOTE | 2020-05-03 08:15 | NUR ---
NURSE NOTES: Received pt from IRMA Mary, pt is awake and alert, pt is in RA, no SOB or acute respiratory distress noted. pt is on continues heart monitoring, no complain of pain at this moment, pt has intact iv access RH 24g SL. pt is eating breakfast by observation. all needs attended, bed is locked and is in the lowest position, call light within easy reach. will continue to monitor.
--- NOTE | 2020-05-03 08:31 | NUR ---
NURSE NOTES: Dr Tran is aware about hypotension ordered NS 500ML bolus and consult with Dr Presley, noted and carried out. will continue to monitor.
[2020-05-03] MEDS: Theophylline ER 100mg ORAL SCH (08:41)
[2020-05-03] MEDS: Heparin 5000 units/ml inj SUBQ SCH ×2 (08:42→20:31)
--- NOTE | 2020-05-03 13:43 | Consultation ---
History of Present Illness General Date patient seen: May 03, 2020 Chief Complaint: Upper Respiratory Illness Present Illness HPI 64 y/o M with hx of COPD/emphysema, tobacco abuse, ETOH abuse, ?treated TB presented to ED on 04/30/20 with SOB and productive cough with yellow phlegm Denied fevers, nausea/vomiting, diarrhea, chest pain Allergies: Coded Allergies: FISH CONTAINING PRODUCTS (Verified Allergy, Unknown, 05/02/20) Per Patient Medication History Scheduled Trazodone Hcl (Trazodone Hcl), 50 MG ORAL BEDTIME, (Reported) Scheduled PRN Guaifenesin/Codeine Phos* (Robitussin Ac*), 5 ML ORAL Q4H PRN for For Cough, ( Reported) Nitroglycerin 0.4MG table* (Nitroglycerin*), 0.4 MG SL .Q5MIN X 3 DOSES PRN for CHEST PAIN, (Reported) Patient History Healthcare decision maker N Resuscitation status Advanced Directive on File Patient History Narrative PMhx: as above Shx: Patient is an active smoker, active drinker. Fhx: non contributory Review of Systems All Other Systems: negative except mentioned in HPI Physical Exam Physical Exam Narrative GENERAL: The patient is awake, responsive, in no acute distress, chronically ill-appearing. HEAD AND NECK: Pupils are equal and reactive to light. Extraocular movements intact. Neck was supple. No JVD. LUNGS: Good air entry. No wheezing or rales. HEART: S1, S2. Regular rhythm. No murmur or gallops. ABDOMEN: Soft, nondistended, nontender. Positive bowel sounds. EXTREMITIES: No cyanosis, clubbing, or edema. Last 24 Hour Vital Signs Date Time Temp Pulse Resp B/P (MAP) Pulse Ox O2 Delivery O2 Flow Rate FiO2 05/03/20 12:28 89 05/03/20 10:36 93 05/03/20 08:00 97.5 87 20 90/55 (67) 97 05/03/20 07:11 97.5 86 20 87/65 (72) 97 05/03/20 06:39 113 103/67 05/03/20 04:00 97.7 190 20 98/58 (71) 98 05/03/20 00:00 98.0 83 19 122/74 (90) 97 05/02/20 21:00 Nasal Cannula 3.0 05/02/20 20:00 98.6 81 19 116/71 (86) 96 05/02/20 16:00 98.1 90 20 121/77 (92) 95 Intake and Output 05/02/20 05/03/20 19:00 07:00 Intake Total 783.333 ml 775 ml Output Total 800 ml Balance -16.667 ml 775 ml Intake Oral 600 ml 500 ml IV Total 183.333 ml 275 ml Output Urine Total 800 ml # Voids 1 5 Laboratory Tests Test 05/03/20 05:35 White Blood Count 7.1 K/UL (4.8-10.8) Red Blood Count 5.24 M/UL (4.70-6.10) Hemoglobin 16.1 G/DL (14.2-18.0) Hematocrit 48.6 % (42.0-52.0) Mean Corpuscular Volume 93 FL (80-99) Mean Corpuscular Hemoglobin 30.7 PG (27.0-31.0) Mean Corpuscular Hemoglobin Concent 33.1 G/DL (32.0-36.0) Red Cell Distribution Width 11.9 % (11.6-14.8) Platelet Count 154 K/UL (150-450) Mean Platelet Volume 6.9 FL (6.5-10.1) Neutrophils (%) (Auto) 58.1 % (45.0-75.0) Lymphocytes (%) (Auto) 26.5 % (20.0-45.0) Monocytes (%) (Auto) 14.6 % (1.0-10.0) H Eosinophils (%) (Auto) 0.2 % (0.0-3.0) Basophils (%) (Auto) 0.6 % (0.0-2.0) Sodium Level 139 MMOL/L (136-145) Potassium Level 3.5 MMOL/L (3.5-5.1) Chloride Level 100 MMOL/L (98-107) Carbon Dioxide Level 30 MMOL/L (21-32) Anion Gap 9 mmol/L (5-15) Blood Urea Nitrogen 15 mg/dL (7-18) Creatinine 0.7 MG/DL (0.55-1.30) Estimat Glomerular Filtration Rate > 60 mL/min (>60) Glucose Level 94 MG/DL (74-106) Calcium Level 9.2 MG/DL (8.5-10.1) Height (Feet): 6 Height (Inches): 1.00 Weight (Pounds): 130 Medications Current Medications Medications (Trade) Dose Ordered Sig/Martha Route PRN Reason Start Time Stop Time Status Last Admin Dose Admin Acetaminophen (Tylenol) 650 mg Q4H PRN ORAL T>100.5 04/30/20 19:30 05/30/20 19:29 Albuterol Sulfate (Proventil MDI) 2 puff Q4H PRN INH Shortness of Breath 05/01/20 07:30 07/30/20 07:29 05/01/20 15:48 Albuterol/ Ipratropium (Albuterol/ Ipratropium) 3 ml Q4H PRN HHN Shortness of Breath 04/30/20 19:30 05/05/20 19:29 Azithromycin 250 mg/Dextrose 275 ml @ 275 mls/hr Q24HRS IV 05/01/20 18:00 05/06/20 17:59 05/02/20 18:07 Ceftriaxone Sodium 1 gm/ Dextrose 55 ml @ 110 mls/hr Q24H IVPB 04/30/20 20:00 05/07/20 19:59 05/02/20 21:26 Dexamethasone (Decadron) 4 mg DAILY ORAL 05/01/20 09:00 05/31/20 08:59 05/03/20 08:41 Dextrose (Dextrose 50%) 25 ml Q30M PRN IV Hypoglycemia 04/30/20 19:30 07/29/20 19:29 Dextrose (Dextrose 50%) 50 ml Q30M PRN IV Hypoglycemia 04/30/20 19:30 07/29/20 19:29 Heparin Sodium (Porcine) (Heparin 5000 units/ml) 5,000 units EVERY 12 HOURS SUBQ 04/30/20 21:00 06/14/20 20:59 05/03/20 08:42 Metoprolol Tartrate (Lopressor) 5 mg Q6H PRN IVP Tachycardia 05/03/20 06:15 08/01/20 06:14 05/03/20 06:39 Ondansetron HCl (Zofran) 4 mg Q6H PRN IVP Nausea & Vomiting 04/30/20 19:30 05/30/20 19:29 05/01/20 14:13 Polyethylene Glycol (Miralax) 17 gm DAILYPRN PRN ORAL Constipation 04/30/20 19:30 05/30/20 19:29 Promethazine HCl/ Codeine (Phenergan with Codeine) 5 ml Q6H PRN ORAL cough 04/30/20 19:30 05/30/20 19:29 05/03/20 08:59 Theophylline (Carlos-Dur) 100 mg DAILY ORAL 05/01/20 15:00 07/30/20 14:59 05/03/20 08:41 Trazodone HCl (Desyrel) 50 mg BEDTIME ORAL 05/01/20 21:00 05/31/20 20:59 05/02/20 21:26 Vancomycin HCl (Vanco pharmacy to dose) 1 ea DAILY PRN MISC Per rx protocol 05/02/20 11:00 06/01/20 10:59 Vancomycin HCl 750 mg/Sodium Chloride 275 ml @ 183.333 mls/hr Q12H IVPB 05/03/20 01:00 05/08/20 00:59 05/03/20 13:08 Assessment/Plan Assessment/Plan: Abx: IV Vancomycin 05/02- Ceftriaxone 04/30- Azithromycin 04/30- Assessment: COPD exacerbation- r/o COVID19 -05/01 Sp cx normal resp gary (prelim) -04/30 CXR: No acute process Afebrile NO leukocytosis CONS/Diphteroids bacteremia- likely contaminant -04/30 Bcx 1/4 diphteroids, 1/4 CONS; 05/02 Bcx p COPD/emphysema tobacco abuse ETOH abuse ?treated TB Plan: -Continue Ceftriaxone and Azithromycin #4/5 -COntinue empiric IV Vancomycin #2 pending repeat Bcx -f/u cx -Monitor CBC/CMP, temperatures -COVID19 isolation and precautions; send COVID PCR Thank you for consulting [facility]. Will continue to follow along with you. Discussed wit Alexsandra Santos M.D. May 03, 2020 13:43
[2020-05-03] MEDS ORDERED: Miralax 17gm pkt ORAL PRN (14:15)
[2020-05-03] MEDS ORDERED: Albuterol 90mcg Inhaler 8gm INH PRN (14:15)
--- NOTE | 2020-05-03 14:18 | Cardiology Progress Note ---
Assessment/Plan Assessment/Plan [id number] svt st depression in lumtip lead due to duppy demand mismatch at time of severe tachy will repeat ekg \ check trop will eventually needs echo avoid beta agonisit if possible Objective Last 24 Hour Vital Signs Date Time Temp Pulse Resp B/P (MAP) Pulse Ox O2 Delivery O2 Flow Rate FiO2 05/03/20 12:28 89 05/03/20 10:36 93 05/03/20 08:00 97.5 87 20 90/55 (67) 97 05/03/20 07:11 97.5 86 20 87/65 (72) 97 05/03/20 06:39 113 103/67 05/03/20 04:00 97.7 190 20 98/58 (71) 98 05/03/20 00:00 98.0 83 19 122/74 (90) 97 05/02/20 21:00 Nasal Cannula 3.0 05/02/20 20:00 98.6 81 19 116/71 (86) 96 05/02/20 16:00 98.1 90 20 121/77 (92) 95 Intake and Output 05/02/20 05/03/20 19:00 07:00 Intake Total 783.333 ml 775 ml Output Total 800 ml Balance -16.667 ml 775 ml Intake Oral 600 ml 500 ml IV Total 183.333 ml 275 ml Output Urine Total 800 ml # Voids 1 5 Laboratory Tests Test 05/03/20 05:35 White Blood Count 7.1 K/UL (4.8-10.8) Red Blood Count 5.24 M/UL (4.70-6.10) Hemoglobin 16.1 G/DL (14.2-18.0) Hematocrit 48.6 % (42.0-52.0) Mean Corpuscular Volume 93 FL (80-99) Mean Corpuscular Hemoglobin 30.7 PG (27.0-31.0) Mean Corpuscular Hemoglobin Concent 33.1 G/DL (32.0-36.0) Red Cell Distribution Width 11.9 % (11.6-14.8) Platelet Count 154 K/UL (150-450) Mean Platelet Volume 6.9 FL (6.5-10.1) Neutrophils (%) (Auto) 58.1 % (45.0-75.0) Lymphocytes (%) (Auto) 26.5 % (20.0-45.0) Monocytes (%) (Auto) 14.6 % (1.0-10.0) H Eosinophils (%) (Auto) 0.2 % (0.0-3.0) Basophils (%) (Auto) 0.6 % (0.0-2.0) Sodium Level 139 MMOL/L (136-145) Potassium Level 3.5 MMOL/L (3.5-5.1) Chloride Level 100 MMOL/L (98-107) Carbon Dioxide Level 30 MMOL/L (21-32) Anion Gap 9 mmol/L (5-15) Blood Urea Nitrogen 15 mg/dL (7-18) Creatinine 0.7 MG/DL (0.55-1.30) Estimat Glomerular Filtration Rate > 60 mL/min (>60) Glucose Level 94 MG/DL (74-106) Calcium Level 9.2 MG/DL (8.5-10.1) Microbiology Date/Time Source Procedure Growth Status 04/30/20 14:49 Blood Blood Culture - Preliminary Staphylococcus Sp Coag Neg Resulted 04/30/20 14:39 Blood Blood Culture - Final Diphtheroids Complete 05/01/20 10:40 Sputum Gram Stain - Final Complete 05/01/20 10:40 Sputum Sputum Culture - Final NORMAL UPPER RESPIRATORY ESTUARDO PRESENT Complete 04/30/20 17:00 Nasal Nares MRSA Culture - Final Staphylococcus Aureus - Mrsa Complete 04/30/20 17:00 Nasopharynx Coronavirus COVID-19 PCR (MANUEL) - Final Complete 04/30/20 17:00 Rectum - Final NO CARBAPENEM-RESISTANT ENTEROBACTERI... Complete 04/30/20 17:00 Rectum VRE Culture - Final NO VANCOMYCIN RESISTANT ENTEROCOCCUS ... Complete Saad Presley MD May 03, 2020 14:18
[2020-05-03] MEDS ORDERED: Albuterol/Ipratropium 3ml neb HHN PRN (15:30)
--- NOTE | 2020-05-03 16:53 | Internal Med Progress Note ---
Subjective Date of Service: May 03, 2020 Physician Name AmarilysMamadou Attending Physician Vishal Tran MD Current Medications Medications (Trade) Dose Ordered Sig/Martha Route PRN Reason Start Time Stop Time Status Last Admin Dose Admin Acetaminophen (Tylenol) 650 mg Q4H PRN ORAL T>100.5 05/03/20 14:15 06/02/20 14:14 Albuterol Sulfate (Proventil MDI) 2 puff Q4H PRN INH Shortness of Breath 05/03/20 14:15 08/01/20 14:14 Azithromycin 250 mg/Dextrose 275 ml @ 275 mls/hr Q24HRS IV 05/03/20 18:00 05/06/20 17:59 Ceftriaxone Sodium 1 gm/ Dextrose 55 ml @ 110 mls/hr Q24H IVPB 05/03/20 20:00 05/07/20 19:59 Dexamethasone (Decadron) 4 mg DAILY ORAL 05/04/20 09:00 05/13/20 08:59 Dextrose (Dextrose 50%) 25 ml Q30M PRN IV Hypoglycemia 05/03/20 14:30 07/29/20 19:29 Dextrose (Dextrose 50%) 50 ml Q30M PRN IV Hypoglycemia 05/03/20 14:30 07/29/20 19:29 Heparin Sodium (Porcine) (Heparin 5000 units/ml) 5,000 units EVERY 12 HOURS SUBQ 05/03/20 21:00 06/14/20 20:59 Metoprolol Tartrate (Lopressor) 5 mg Q6H PRN IVP Tachycardia 05/03/20 14:15 08/01/20 14:14 Ondansetron HCl (Zofran) 4 mg Q6H PRN IVP Nausea & Vomiting 05/03/20 14:15 06/02/20 14:14 Polyethylene Glycol (Miralax) 17 gm DAILYPRN PRN ORAL Constipation 05/03/20 14:15 06/02/20 14:14 Promethazine HCl/ Codeine (Phenergan with Codeine) 5 ml Q6H PRN ORAL cough 05/03/20 14:16 06/02/20 14:15 Sodium Chloride 1,000 ml @ 75 mls/hr [id number] IV 05/03/20 14:30 06/02/20 14:29 05/03/20 15:02 Trazodone HCl (Desyrel) 50 mg BEDTIME ORAL 05/03/20 21:00 05/31/20 20:59 Vancomycin HCl (Vanco pharmacy to dose) 1 ea DAILY PRN MISC Per rx protocol 05/04/20 09:00 06/01/20 10:59 Vancomycin HCl 750 mg/Sodium Chloride 275 ml @ 183.333 mls/hr Q12H IVPB 05/04/20 01:00 05/08/20 00:59 Allergies: Coded Allergies: FISH CONTAINING PRODUCTS (Verified Allergy, Unknown, 05/02/20) Per Patient ROS Limited/Unobtainable: No Constitutional: Reports: no symptoms HEENT: Reports: no symptoms Cardiovascular: Reports: no symptoms Respiratory: Reports: shortness of breath Gastrointestinal/Abdominal: Reports: no symptoms Genitourinary: Reports: no symptoms Neurologic/Psychiatric: Reports: no symptoms Subjective 64 YO M admitted with shortness of breath. Now bacteremia. Cover for Int Juanpablo- Dr Tran Objective Last Vital Signs Date Time Temp Pulse Resp B/P (MAP) Pulse Ox O2 Delivery O2 Flow Rate FiO2 05/03/20 16:00 97.9 81 20 105/61 (76) 98 05/03/20 09:00 Nasal Cannula 2.0 04/30/20 14:30 98 Laboratory Tests Test 05/03/20 05:35 05/03/20 16:10 White Blood Count 7.1 K/UL (4.8-10.8) Red Blood Count 5.24 M/UL (4.70-6.10) Hemoglobin 16.1 G/DL (14.2-18.0) Hematocrit 48.6 % (42.0-52.0) Mean Corpuscular Volume 93 FL (80-99) Mean Corpuscular Hemoglobin 30.7 PG (27.0-31.0) Mean Corpuscular Hemoglobin Concent 33.1 G/DL (32.0-36.0) Red Cell Distribution Width 11.9 % (11.6-14.8) Platelet Count 154 K/UL (150-450) Mean Platelet Volume 6.9 FL (6.5-10.1) Neutrophils (%) (Auto) 58.1 % (45.0-75.0) Lymphocytes (%) (Auto) 26.5 % (20.0-45.0) Monocytes (%) (Auto) 14.6 % (1.0-10.0) H Eosinophils (%) (Auto) 0.2 % (0.0-3.0) Basophils (%) (Auto) 0.6 % (0.0-2.0) Sodium Level 139 MMOL/L (136-145) Potassium Level 3.5 MMOL/L (3.5-5.1) Chloride Level 100 MMOL/L (98-107) Carbon Dioxide Level 30 MMOL/L (21-32) Anion Gap 9 mmol/L (5-15) Blood Urea Nitrogen 15 mg/dL (7-18) Creatinine 0.7 MG/DL (0.55-1.30) Estimat Glomerular Filtration Rate > 60 mL/min (>60) Glucose Level 94 MG/DL (74-106) Calcium Level 9.2 MG/DL (8.5-10.1) Troponin I Pending Microbiology Date/Time Source Procedure Growth Status 05/01/20 10:40 Sputum Gram Stain - Final Complete 05/01/20 10:40 Sputum Sputum Culture - Final NORMAL UPPER RESPIRATORY ESTUARDO PRESENT Complete 04/30/20 17:00 Nasal Nares MRSA Culture - Final Staphylococcus Aureus - Mrsa Complete 04/30/20 17:00 Nasopharynx Coronavirus COVID-19 PCR (MANUEL) - Final Complete 04/30/20 17:00 Rectum - Final NO CARBAPENEM-RESISTANT ENTEROBACTERI... Complete 04/30/20 17:00 Rectum VRE Culture - Final NO VANCOMYCIN RESISTANT ENTEROCOCCUS ... Complete Intake and Output 05/02/20 05/03/20 19:00 07:00 Intake Total 783.333 ml 775 ml Output Total 800 ml Balance -16.667 ml 775 ml Intake Oral 600 ml 500 ml IV Total 183.333 ml 275 ml Output Urine Total 800 ml # Voids 1 5 Objective PHYSICAL EXAMINATION: GENERAL: The patient is awake, responsive, in no acute distress, chronically ill-appearing. HEAD AND NECK: Pupils are equal and reactive to light. Extraocular movements intact. Neck was supple. No JVD. LUNGS: Good air entry. No wheezing or rales. HEART: S1, S2. Regular rhythm. No murmur or gallops. ABDOMEN: Soft, nondistended, nontender. Positive bowel sounds. EXTREMITIES: No cyanosis, clubbing, or edema. NEUROLOGIC: Cranial nerves II through XII grossly intact. Motor is 5/5 in all extremities. Gait was not assessed due to the patient's status. RECTAL: Refused and deferred. GENITOURINARY: Refused and deferred. PSYCHIATRIC: Mood and affect is intact. Assessment/Plan Assessment/Plan ASSESSMENT: 1. Shortness of breath, most likely secondary to the acute COPD exacerbation. 2. COVID-19 = Negative. 3. Chronic smoker with emphysematous lung. 4. Severe protein-calorie malnutrition. 5. Inability to ambulate. PLAN: 1. Admit the patient to medical floor. We will follow up with 2. antibiotic = vanco, azithromycin and Rocephin. 3. Code status is Full Code. 4. DVT prophylaxis, heparin subcu. We 5. Dr. Underwood =Pulmonary/Critical Care 6. HIV test=Mamadou Cade MD May 03, 2020 16:53
--- NOTE | 2020-05-03 17:04 | NUR ---
NURSE NOTES: Dr Presley is aware about ECG and Echo results and troponin 0.196, waiting to call back. will continue to monitor.
--- NOTE | 2020-05-03 17:22 | NUR ---
NURSE NOTES: Dr Presley called back, no new order to RN, MD will F/U. Will continue to monitor.
[2020-05-03] MEDS: Azithromycin 250 MG in D5W 275 ML IV SCH (17:55)
--- NOTE | 2020-05-03 19:00 | Consultation ---
DATE OF CONSULTATION: 05/03/2020 CARDIOLOGY CONSULTATION REFERRING PHYSICIAN: Vishal Tran M.D. REASON FOR REFERRAL: SVT and hypotension. HISTORY OF PRESENT ILLNESS: This is a 64-year-old gentleman who was initially admitted to the hospital on 04/30/2020 with complaints of shortness of breath with a history of COPD, active smoking, and a history of tuberculosis, which apparently has been treated. Denies any fevers or nausea, vomiting, diarrhea, or chest pain. He has had a cough that was chronic in nature and uses Spiriva and albuterol, and living in a [facility] care facility. He was admitted through the emergency room here and was treated. COVID-19 was checked and apparently came back negative. This morning, he had developed a bout of supraventricular tachycardia and close to 5 a.m. with heart rates documented per nursing staff of 130 to 101 per minute. The patient was awake and alert. No complaints of chest pain or dizziness. He felt fluttering in his chest as well. A stat EKG was done and SVT was diagnosed at a rate of 190 and apparently 5 mg of metoprolol was administered. Dr. Tran had ordered Lopressor 5 mg. The patient's heart rate went down to 113 before being given the medication, but medication was given and the patient's blood pressure dropped to 87/65. A bolus of saline was then recommended. The patient has been subsequently in sinus since then. The patient remains in COVID isolation at this time, although his initial COVID was negative because of persistent symptoms. He was seen by Infectious Disease who recommended a second COVID test be stent. Therefore, the patient is in isolation at this time and I have not been able to get much in terms of information from him directly, but through Dr. Potts, who saw the patient earlier today, I picked up some of the information that she had assessed. REVIEW OF SYSTEMS: CARDIAC: Apparently, the patient denies any chest pain. PULMONARY: Positive for coughing as mentioned and sputum production, yellow sputum, and some shortness of breath. CONSTITUTIONAL: There has been no fevers apparently according to the patient. PAST MEDICAL HISTORY: As could be ascertained from the chart, COPD, emphysema, protein-calorie malnutrition, and apparently previous treatment for tuberculosis, details really unknown. ALLERGIES: None. SOCIAL HISTORY: Ex-smoker per Dr. Tran's note, but the patient is an active smoker and active drinker by Dr. Potts. PHYSICAL EXAMINATION: Per Dr. Potts, awake, responsive, in no respiratory distress, chronically ill-appearing. NECK: Supple. No jugular venous distention. LUNGS: Good air entry. No wheezes or rales. CARDIAC: Regular rate and rhythm. No murmurs. ABDOMEN: Soft, nontender. Positive bowel sounds. EXTREMITIES: Apparently did not have any edema. VITAL SIGNS: Blood pressure most recently 90/55 with a heart rate of 87 with temperature of 97.5. LABORATORY DATA: White count of 7.1, hemoglobin 16.1, platelet count of 154. Sodium 139, potassium 3.5, chloride 100, bicarb of 30, BUN 15, creatinine 0.7, glucose 94, calcium 9.2. Yesterday, his AST and ALT were up to 138 and 124 respectively. Magnesium was 1.7 yesterday and his albumin was 3.5. HIV serology was negative. His micro test, blood culture #1 showed diphtheroids. Blood culture #2 has coag-negative staph. COVID initially on 04/30/2020 was not detected, and sputum from 2 days ago has normal gary. The patient did have a chest x-ray performed in the emergency room that was read as hyperinflated lungs, bilateral upper lobe bullous changes, heart size normal, surgical hardware in both shoulders, no infiltrate, effusions, or congestion. The patient has one EKG that was done at the time of his tachycardia. It shows supraventricular tachycardia, rate of 190, with ST-segment depressions in II, III, aVF, as well as V4, V5, and V6. His telemetry data has shown subsequently sinus rhythm. ASSESSMENT AND PLAN: 1. Supraventricular tachycardia. 2. COPD with exacerbation. 3. Cough, sputum production, pending COVID. 4. Bacteremia, probable contamination. 5. History of tuberculosis, status post treatment. 6. Hypotension post episode of tachycardia. Dr. Tran, this patient was seen in cardiac consultation. The patient will have cardiac enzymes checked. EKG will be repeated. He is in isolation for COVID retesting because of his persistent symptoms. He will require echocardiogram at some point. His ST-segment changes were depressed during the episode of SVT, but that may be purely because of the supply-demand mismatch, likely related to the tachycardia and not acute coronary syndrome. We will see if those changes have reverted back to normal. Saad Presley M.D. DR: MAURICE JOB#: [id number] CC:
--- NOTE | 2020-05-03 19:33 | NUR ---
HAND-OFF: Report given to IRMA Mary. Pt is awake and stable, no stress noted, endorsed plan of care.
[2020-05-03] MEDS: TraZODone 50mg tab ORAL SCH (20:29)
[2020-05-03] MEDS: cefTRIAXone 1 GM in D5W 55 ML IVPB SCH (20:30)
[2020-05-04] VITALS: BP 102/58
[2020-05-04] MEDS ORDERED: Vancomycin 750 MG in NS 275 ML IVPB SCH ×4 (01:00)
--- NOTE | 2020-05-04 03:28 | NUR ---
NURSE NOTES: Received patient report from IRMA Hawk. Patient shows no signs of distress or pain at the time. Patient is AO x4. IV is intact and patent. There are nos igns of erythema, infiltration, or bleeding. Bed is in the lowest position, call light is within reach, side rails up x 3. Will continue plan of care.
[2020-05-04 04:00] VITALS: BP 115/71
--- NOTE | 2020-05-04 05:40 | NUR ---
Troponin level came back 0.156. Informed Dr. Presley.
[2020-05-04 06:30] LABS: BASOPHILS % (AUTO) 0.3 % (0.0-2.0); EOSINOPHILS % (AUTO) 0.2 % (0.0-3.0); HEMATOCRIT 38.2 % (42.0-52.0); HEMOGLOBIN 12.9 G/DL (14.2-18.0); LYMPHOCYTES % (AUTO) 20.1 % (20.0-45.0); MEAN CORPUSCULAR VOLUME 93 FL (80-99); NEUTROPHILS % (AUTO) 63.4 % (45.0-75.0); PLATELET COUNT 112 K/UL (150-450); RED CELL DISTRIBUTION WIDTH 12.1 % (11.6-14.8)
[2020-05-04 07:01] LABS: ANION GAP 6 mmol/L (5-15); BLOOD UREA NITROGEN 14 mg/dL (7-18); CALCIUM 8.7 MG/DL (8.5-10.1); CARBON DIOXIDE 30 MMOL/L (21-32); CHLORIDE 103 MMOL/L (98-107); CREATININE 0.7 MG/DL (0.55-1.30); POTASSIUM 3.8 MMOL/L (3.5-5.1); SODIUM 139 MMOL/L (136-145)
--- NOTE | 2020-05-04 07:37 | NUR ---
NURSE NOTES: Received pt from IRMA Mary, pt has NC 2LMP. pt is on continues heart monitoring, no complain of pain at this moment, pt has intact iv access RH 24g is running well. pt is eating breakfast by observation. all needs attended, bed is locked and is in the lowest position, call light within easy reach. will continue to monitor.
--- NOTE | 2020-05-04 07:40 | NUR ---
HAND-OFF: Report given to IRMA Hawk. Patient shows no signs of distress or pain at the time. Endorsed plan of care.
[2020-05-04 08:00] VITALS: BP 122/69
[2020-05-04] MEDS: Promethazine/Codeine 5ml UD ORAL PRN ×3 (08:19→22:30)
[2020-05-04] MEDS: Vancomycin 750 MG in NS 275 ML IVPB SCH ×2 (08:20→16:00)
[2020-05-04] MEDS: Heparin 5000 units/ml inj SUBQ SCH ×2 (08:31→20:29)
[2020-05-04] MEDS ORDERED: Theophylline ER 100mg ORAL SCH (09:00)
--- NOTE | 2020-05-04 09:34 | NUR ---
NURSE NOTES: Dr Presley is aware about troponin 0.148 no new order to RN. Will continue to monitor.
[2020-05-04 11:54] VITALS: BP 120/81
--- NOTE | 2020-05-04 13:02 | NUR ---
CASE MANAGEMENT:REVIEW 05/03/20 SI;COPD EXACERBATION. ELEVATED TROPONIN. SVT. BACTEREMIA. T 98.0 P 190 R 20 BP 98/58 O2 97% 3L NC FIO2 @ 98% TROP 0.196 IS;ROCEPHIN IV Q24 SRINATH-DUR PO QD ZITHROMAX IV VANCOMYCIN IV DECADRON PO PHENERGAN W/CODEINE PO IVF NS BOLUS COVID-19 PCR TELE STATUS DCP;PATIENT IS FROM HOME CASE MANAGEMENT:REVIEW 05/04/20 SI;COPD EXACERBATION. BACTEREMIA. ELEVATED TROPONIN. 96.9 59 19 122/69 96% 2L NC PLT 112 TROP 0.156 IS;DECADRON PO VANCOMYCIN IV Q8 HEPARIN SUBQ Q12 ROCEPHIN IV Q24 ZITHROMAX IV Q24 IVF NS @ 75 ML/HR PHENERGAN W/CODEINE PO TELEMETRY STATUS DCP;FROM HOME PLAN; EKG REPEAT COVID-19 RESULT PENDING
--- NOTE | 2020-05-04 13:18 | Internal Med Progress Note ---
Subjective Date of Service: May 04, 2020 Physician Name Mamadou Panda Attending Physician Vishal Tran MD Current Medications Medications (Trade) Dose Ordered Sig/Martha Route PRN Reason Start Time Stop Time Status Last Admin Dose Admin Acetaminophen (Tylenol) 650 mg Q4H PRN ORAL T>100.5 05/03/20 14:15 06/02/20 14:14 Albuterol Sulfate (Proventil MDI) 2 puff Q4H PRN INH Shortness of Breath 05/03/20 14:15 08/01/20 14:14 Azithromycin 250 mg/Dextrose 275 ml @ 275 mls/hr Q24HRS IV 05/03/20 18:00 05/06/20 17:59 05/03/20 17:55 Ceftriaxone Sodium 1 gm/ Dextrose 55 ml @ 110 mls/hr Q24H IVPB 05/03/20 20:00 05/07/20 19:59 05/03/20 20:30 Dexamethasone (Decadron) 4 mg DAILY ORAL 05/04/20 09:00 05/13/20 08:59 05/04/20 08:18 Dextrose (Dextrose 50%) 25 ml Q30M PRN IV Hypoglycemia 05/03/20 14:30 07/29/20 19:29 Dextrose (Dextrose 50%) 50 ml Q30M PRN IV Hypoglycemia 05/03/20 14:30 07/29/20 19:29 Heparin Sodium (Porcine) (Heparin 5000 units/ml) 5,000 units EVERY 12 HOURS SUBQ 05/03/20 21:00 06/14/20 20:59 05/03/20 20:31 Metoprolol Tartrate (Lopressor) 5 mg Q6H PRN IVP Tachycardia 05/03/20 14:15 08/01/20 14:14 Ondansetron HCl (Zofran) 4 mg Q6H PRN IVP Nausea & Vomiting 05/03/20 14:15 06/02/20 14:14 Polyethylene Glycol (Miralax) 17 gm DAILYPRN PRN ORAL Constipation 05/03/20 14:15 06/02/20 14:14 Promethazine HCl/ Codeine (Phenergan with Codeine) 5 ml Q6H PRN ORAL cough 05/03/20 14:16 06/02/20 14:15 05/04/20 08:19 Sodium Chloride 1,000 ml @ 75 mls/hr [id number] IV 05/03/20 14:30 06/02/20 14:29 05/04/20 08:27 Trazodone HCl (Desyrel) 50 mg BEDTIME ORAL 05/03/20 21:00 05/31/20 20:59 05/03/20 20:29 Vancomycin HCl (Vanco pharmacy to dose) 1 ea DAILY PRN MISC Per rx protocol 05/04/20 09:00 06/01/20 10:59 Vancomycin HCl 750 mg/Sodium Chloride 275 ml @ 183.333 mls/hr Q8H IVPB 05/04/20 09:00 05/09/20 08:59 05/04/20 08:20 Allergies: Coded Allergies: FISH CONTAINING PRODUCTS (Verified Allergy, Unknown, 05/02/20) Per Patient ROS Limited/Unobtainable: No Constitutional: Reports: no symptoms HEENT: Reports: no symptoms Cardiovascular: Reports: no symptoms Respiratory: Reports: shortness of breath Gastrointestinal/Abdominal: Reports: no symptoms Genitourinary: Reports: no symptoms Neurologic/Psychiatric: Reports: no symptoms Subjective 64 YO M admitted with shortness of breath. Now COPD exacerbation. Cover for Int Med-Dr Tran Objective Last Vital Signs Date Time Temp Pulse Resp B/P (MAP) Pulse Ox O2 Delivery O2 Flow Rate FiO2 05/04/20 11:54 98.1 87 19 120/81 (94) 96 05/04/20 09:00 Nasal Cannula 2.0 04/30/20 14:30 98 Laboratory Tests Test 05/03/20 16:10 05/04/20 00:24 05/04/20 04:30 Troponin I 0.196 ng/mL (0.000-0.056) 0.156 ng/mL (0.000-0.056) 0.148 ng/mL (0.000-0.056) Vancomycin Level Trough 6.7 ug/mL (5.0-12.0) White Blood Count 5.0 K/UL (4.8-10.8) Red Blood Count 4.10 M/UL (4.70-6.10) L Hemoglobin 12.9 G/DL (14.2-18.0) L Hematocrit 38.2 % (42.0-52.0) L Mean Corpuscular Volume 93 FL (80-99) Mean Corpuscular Hemoglobin 31.4 PG (27.0-31.0) H Mean Corpuscular Hemoglobin Concent 33.7 G/DL (32.0-36.0) Red Cell Distribution Width 12.1 % (11.6-14.8) Platelet Count 112 K/UL (150-450) L Mean Platelet Volume 5.9 FL (6.5-10.1) L Neutrophils (%) (Auto) 63.4 % (45.0-75.0) Lymphocytes (%) (Auto) 20.1 % (20.0-45.0) Monocytes (%) (Auto) 16.0 % (1.0-10.0) H Eosinophils (%) (Auto) 0.2 % (0.0-3.0) Basophils (%) (Auto) 0.3 % (0.0-2.0) Sodium Level 139 MMOL/L (136-145) Potassium Level 3.8 MMOL/L (3.5-5.1) Chloride Level 103 MMOL/L (98-107) Carbon Dioxide Level 30 MMOL/L (21-32) Anion Gap 6 mmol/L (5-15) Blood Urea Nitrogen 14 mg/dL (7-18) Creatinine 0.7 MG/DL (0.55-1.30) Estimat Glomerular Filtration Rate > 60 mL/min (>60) Glucose Level 80 MG/DL (74-106) Calcium Level 8.7 MG/DL (8.5-10.1) Microbiology Date/Time Source Procedure Growth Status 05/02/20 12:00 Blood Blood Culture - Preliminary NO GROWTH AFTER 24 HOURS Resulted 05/02/20 11:50 Blood Blood Culture - Preliminary NO GROWTH AFTER 24 HOURS Resulted Intake and Output 05/03/20 05/04/20 19:00 07:00 Intake Total 1275.000 ml 75 ml Output Total 1700 ml Balance -425.000 ml 75 ml Intake Oral 500 ml IV Total 775.000 ml 75 ml Output Urine Total 1700 ml # Voids 4 3 Objective PHYSICAL EXAMINATION: GENERAL: The patient is awake, responsive, in no acute distress, chronically ill-appearing. HEAD AND NECK: Pupils are equal and reactive to light. Extraocular movements intact. Neck was supple. No JVD. LUNGS: Good air entry. No wheezing or rales. HEART: S1, S2. Regular rhythm. No murmur or gallops. ABDOMEN: Soft, nondistended, nontender. Positive bowel sounds. EXTREMITIES: No cyanosis, clubbing, or edema. NEUROLOGIC: Cranial nerves II through XII grossly intact. Motor is 5/5 in all extremities. Gait was not assessed due to the patient's status. RECTAL: Refused and deferred. GENITOURINARY: Refused and deferred. PSYCHIATRIC: Mood and affect is intact. Assessment/Plan Assessment/Plan ASSESSMENT: 1. Shortness of breath, most likely secondary to the acute COPD exacerbation. 2. COVID-19 = Negative. 3. Chronic smoker with emphysematous lung. 4. Severe protein-calorie malnutrition. 5. Inability to ambulate. PLAN: 1. Admit the patient to medical floor. We will follow up with 2. antibiotic = vanco, azithromycin and Rocephin. 3. Code status is Full Code. 4. DVT prophylaxis, heparin subcu. We 5. Dr. Underwood =Pulmonary/Critical Care 6. HIV test=Mamadou aCde MD May 04, 2020 13:18
--- NOTE | 2020-05-04 13:48 | Pulmonology Progress Note ---
Subjective ROS Limited/Unobtainable: No Constitutional: Reports: no symptoms HEENT: Repors: no symptoms Allergies: Coded Allergies: FISH CONTAINING PRODUCTS (Verified Allergy, Unknown, 05/02/20) Per Patient Objective Last 24 Hour Vital Signs Date Time Temp Pulse Resp B/P (MAP) Pulse Ox O2 Delivery O2 Flow Rate FiO2 05/04/20 11:54 98.1 87 19 120/81 (94) 96 05/04/20 11:44 63 05/04/20 09:00 Nasal Cannula 2.0 05/04/20 08:00 97.9 90 19 122/69 (86) 97 05/04/20 07:52 94 05/04/20 04:00 96.9 59 18 115/71 (86) 98 05/04/20 04:00 62 05/04/20 00:00 65 05/04/20 00:00 97.9 79 18 102/58 (73) 96 05/03/20 21:00 Nasal Cannula 2.0 05/03/20 20:00 97.7 66 18 110/64 (79) 97 05/03/20 20:00 80 05/03/20 16:00 97.9 81 20 105/61 (76) 98 05/03/20 15:44 77 Intake and Output 05/03/20 05/04/20 19:00 07:00 Intake Total 1275.000 ml 75 ml Output Total 1700 ml Balance -425.000 ml 75 ml Intake Oral 500 ml IV Total 775.000 ml 75 ml Output Urine Total 1700 ml # Voids 4 3 General Appearance: cachetic HEENT: normocephalic, atraumatic Respiratory: chest wall non-tender, lungs clear Cardiovascular: normal peripheral pulses, regular rhythm Abdomen: normal bowel sounds, soft, non tender Genitourinary: normal external genitalia Extremities: no clubbing Skin: no lesions Microbiology Date/Time Source Procedure Growth Status 05/02/20 12:00 Blood Blood Culture - Preliminary NO GROWTH AFTER 24 HOURS Resulted 05/02/20 11:50 Blood Blood Culture - Preliminary NO GROWTH AFTER 24 HOURS Resulted Laboratory Tests 05/03/20 16:10: Troponin I 0.196H 05/04/20 00:24: Troponin I 0.156H, Vancomycin Level Trough 6.7 05/04/20 04:30: Troponin I 0.148H, White Blood Count 5.0, Red Blood Count 4.10L, Hemoglobin 12.9L, Hematocrit 38.2L, Mean Corpuscular Volume 93, Mean Corpuscular Hemoglobin 31.4H, Mean Corpuscular Hemoglobin Concent 33.7, Red Cell Distribution Width 12.1, Platelet Count 112L, Mean Platelet Volume 5.9L, Neutrophils (%) (Auto) 63.4, Lymphocytes (%) (Auto) 20.1, Monocytes (%) (Auto) 16.0H, Eosinophils (%) (Auto) 0.2, Basophils (%) (Auto) 0.3, Sodium Level 139, Potassium Level 3.8, Chloride Level 103, Carbon Dioxide Level 30, Anion Gap 6, Blood Urea Nitrogen 14, Creatinine 0.7, Estimat Glomerular Filtration Rate > 60 , Glucose Level 80, Calcium Level 8.7 Current Medications Medications (Trade) Dose Ordered Sig/Martha Route PRN Reason Start Time Stop Time Status Last Admin Dose Admin Acetaminophen (Tylenol) 650 mg Q4H PRN ORAL T>100.5 05/03/20 14:15 06/02/20 14:14 Albuterol Sulfate (Proventil MDI) 2 puff Q4H PRN INH Shortness of Breath 05/03/20 14:15 08/01/20 14:14 Azithromycin 250 mg/Dextrose 275 ml @ 275 mls/hr Q24HRS IV 05/03/20 18:00 05/06/20 17:59 05/03/20 17:55 Ceftriaxone Sodium 1 gm/ Dextrose 55 ml @ 110 mls/hr Q24H IVPB 05/03/20 20:00 05/07/20 19:59 05/03/20 20:30 Dexamethasone (Decadron) 4 mg DAILY ORAL 05/04/20 09:00 05/13/20 08:59 05/04/20 08:18 Dextrose (Dextrose 50%) 25 ml Q30M PRN IV Hypoglycemia 05/03/20 14:30 07/29/20 19:29 Dextrose (Dextrose 50%) 50 ml Q30M PRN IV Hypoglycemia 05/03/20 14:30 07/29/20 19:29 Heparin Sodium (Porcine) (Heparin 5000 units/ml) 5,000 units EVERY 12 HOURS SUBQ 05/03/20 21:00 06/14/20 20:59 05/03/20 20:31 Metoprolol Tartrate (Lopressor) 5 mg Q6H PRN IVP Tachycardia 05/03/20 14:15 08/01/20 14:14 Ondansetron HCl (Zofran) 4 mg Q6H PRN IVP Nausea & Vomiting 05/03/20 14:15 06/02/20 14:14 Polyethylene Glycol (Miralax) 17 gm DAILYPRN PRN ORAL Constipation 05/03/20 14:15 06/02/20 14:14 Promethazine HCl/ Codeine (Phenergan with Codeine) 5 ml Q6H PRN ORAL cough 05/03/20 14:16 06/02/20 14:15 05/04/20 08:19 Sodium Chloride 1,000 ml @ 75 mls/hr [id number] IV 05/03/20 14:30 06/02/20 14:29 05/04/20 08:27 Trazodone HCl (Desyrel) 50 mg BEDTIME ORAL 05/03/20 21:00 05/31/20 20:59 05/03/20 20:29 Vancomycin HCl (Vanco pharmacy to dose) 1 ea DAILY PRN MISC Per rx protocol 05/04/20 09:00 06/01/20 10:59 Vancomycin HCl 750 mg/Sodium Chloride 275 ml @ 183.333 mls/hr Q8H IVPB 05/04/20 09:00 05/09/20 08:59 05/04/20 08:20 Assessment/Plan Problems: (1) COPD exacerbation (2) Suspected COVID-19 virus infection (3) Emphysema of lung (4) Severe protein-calorie malnutrition Assessment/Plan COVID negative times one COVID PCR pending respiratory treatment titrate fio2 antitussives f/u ID recommendations. Leighann Underwood MD May 04, 2020 13:48
--- NOTE | 2020-05-04 14:25 | NUR ---
INSURANCE ALL AVAILABLE CLINICALS HAVE BEEN FAXED TO [facility] P: [phone] F: [phone]
[2020-05-04 16:00] VITALS: BP 126/81
[2020-05-04] MEDS: Azithromycin 250 MG in D5W 275 ML IV SCH (17:34)
--- NOTE | 2020-05-04 17:34 | Infectious Diseases Prog Note ---
Assessment/Plan Assessment: COPD exacerbation- r/o COVID19 -05/01 Sp cx normal resp gary (prelim) -04/30 CXR: No acute process SARS-COV2 PCR neg Afebrile NO leukocytosis CONS/Diphteroids bacteremia- likely contaminant -04/30 Bcx 1/4 diphteroids, 1/4 CONS; 05/02 Bcx NTD COPD/emphysema tobacco abuse ETOH abuse ?treated TB Plan: -Continue Ceftriaxone and Azithromycin #5/5 -d/c empiric IV Vancomycin #3 -f/u cx -Monitor CBC/CMP, temperatures -COVID19 isolation and precautions; f/u 2nd COVID PCR Thank you for consulting [facility]. Will continue to follow along with you. Alex toth RN. Subjective Allergies: Coded Allergies: FISH CONTAINING PRODUCTS (Verified Allergy, Unknown, 05/02/20) Per Patient afebrile at 2l nC repeat Bcx NTD Objective Last 24 Hour Vital Signs Date Time Temp Pulse Resp B/P (MAP) Pulse Ox O2 Delivery O2 Flow Rate FiO2 05/04/20 16:00 97.6 81 17 126/81 (96) 97 05/04/20 15:41 82 05/04/20 11:54 98.1 87 19 120/81 (94) 96 05/04/20 11:44 63 05/04/20 09:00 Nasal Cannula 2.0 05/04/20 08:00 97.9 90 19 122/69 (86) 97 05/04/20 07:52 94 05/04/20 04:00 96.9 59 18 115/71 (86) 98 05/04/20 04:00 62 05/04/20 00:00 65 05/04/20 00:00 97.9 79 18 102/58 (73) 96 05/03/20 21:00 Nasal Cannula 2.0 05/03/20 20:00 97.7 66 18 110/64 (79) 97 05/03/20 20:00 80 Height (Feet): 6 Height (Inches): 1.00 Weight (Pounds): 130 GENERAL: The patient is awake, responsive, in no acute distress, chronically ill-appearing. HEAD AND NECK: Pupils are equal and reactive to light. Extraocular movements intact. Neck was supple. No JVD. LUNGS: Good air entry. No wheezing or rales. HEART: S1, S2. Regular rhythm. No murmur or gallops. ABDOMEN: Soft, nondistended, nontender. Positive bowel sounds. EXTREMITIES: No cyanosis, clubbing, or edema. Microbiology Date/Time Source Procedure Growth Status 05/02/20 12:00 Blood Blood Culture - Preliminary NO GROWTH AFTER 24 HOURS Resulted 05/02/20 11:50 Blood Blood Culture - Preliminary NO GROWTH AFTER 24 HOURS Resulted Laboratory Tests Test 05/04/20 00:24 05/04/20 04:30 Troponin I 0.156 ng/mL (0.000-0.056) 0.148 ng/mL (0.000-0.056) Vancomycin Level Trough 6.7 ug/mL (5.0-12.0) White Blood Count 5.0 K/UL (4.8-10.8) Red Blood Count 4.10 M/UL (4.70-6.10) L Hemoglobin 12.9 G/DL (14.2-18.0) L Hematocrit 38.2 % (42.0-52.0) L Mean Corpuscular Volume 93 FL (80-99) Mean Corpuscular Hemoglobin 31.4 PG (27.0-31.0) H Mean Corpuscular Hemoglobin Concent 33.7 G/DL (32.0-36.0) Red Cell Distribution Width 12.1 % (11.6-14.8) Platelet Count 112 K/UL (150-450) L Mean Platelet Volume 5.9 FL (6.5-10.1) L Neutrophils (%) (Auto) 63.4 % (45.0-75.0) Lymphocytes (%) (Auto) 20.1 % (20.0-45.0) Monocytes (%) (Auto) 16.0 % (1.0-10.0) H Eosinophils (%) (Auto) 0.2 % (0.0-3.0) Basophils (%) (Auto) 0.3 % (0.0-2.0) Sodium Level 139 MMOL/L (136-145) Potassium Level 3.8 MMOL/L (3.5-5.1) Chloride Level 103 MMOL/L (98-107) Carbon Dioxide Level 30 MMOL/L (21-32) Anion Gap 6 mmol/L (5-15) Blood Urea Nitrogen 14 mg/dL (7-18) Creatinine 0.7 MG/DL (0.55-1.30) Estimat Glomerular Filtration Rate > 60 mL/min (>60) Glucose Level 80 MG/DL (74-106) Calcium Level 8.7 MG/DL (8.5-10.1) Current Medications Medications (Trade) Dose Ordered Sig/Martha Route PRN Reason Start Time Stop Time Status Last Admin Dose Admin Acetaminophen (Tylenol) 650 mg Q4H PRN ORAL T>100.5 05/03/20 14:15 06/02/20 14:14 Albuterol Sulfate (Proventil MDI) 2 puff Q4H PRN INH Shortness of Breath 05/03/20 14:15 08/01/20 14:14 Azithromycin 250 mg/Dextrose 275 ml @ 275 mls/hr Q24HRS IV 05/03/20 18:00 05/06/20 17:59 05/03/20 17:55 Ceftriaxone Sodium 1 gm/ Dextrose 55 ml @ 110 mls/hr Q24H IVPB 05/03/20 20:00 05/07/20 19:59 05/03/20 20:30 Dexamethasone (Decadron) 4 mg DAILY ORAL 05/04/20 09:00 05/13/20 08:59 05/04/20 08:18 Dextrose (Dextrose 50%) 25 ml Q30M PRN IV Hypoglycemia 05/03/20 14:30 07/29/20 19:29 Dextrose (Dextrose 50%) 50 ml Q30M PRN IV Hypoglycemia 05/03/20 14:30 07/29/20 19:29 Heparin Sodium (Porcine) (Heparin 5000 units/ml) 5,000 units EVERY 12 HOURS SUBQ 05/03/20 21:00 06/14/20 20:59 05/03/20 20:31 Metoprolol Tartrate (Lopressor) 5 mg Q6H PRN IVP Tachycardia 05/03/20 14:15 08/01/20 14:14 Ondansetron HCl (Zofran) 4 mg Q6H PRN IVP Nausea & Vomiting 05/03/20 14:15 06/02/20 14:14 Polyethylene Glycol (Miralax) 17 gm DAILYPRN PRN ORAL Constipation 05/03/20 14:15 06/02/20 14:14 Promethazine HCl/ Codeine (Phenergan with Codeine) 5 ml Q6H PRN ORAL cough 05/03/20 14:16 06/02/20 14:15 05/04/20 15:55 Sodium Chloride 1,000 ml @ 75 mls/hr [id number] IV 05/03/20 14:30 06/02/20 14:29 05/04/20 08:27 Trazodone HCl (Desyrel) 50 mg BEDTIME ORAL 05/03/20 21:00 05/31/20 20:59 05/03/20 20:29 Vancomycin HCl (Vanco pharmacy to dose) 1 ea DAILY PRN MISC Per rx protocol 05/04/20 09:00 06/01/20 10:59 Vancomycin HCl 750 mg/Sodium Chloride 275 ml @ 183.333 mls/hr Q8H IVPB 05/04/20 09:00 05/09/20 08:59 05/04/20 16:00 Alexsandra Potts M.D. May 04, 2020 17:34
--- NOTE | 2020-05-04 19:19 | NUR ---
HAND-OFF: Report given to IRMA Mary. Pt is awake and stable, no stress noted, endorsed plan of care.
[2020-05-04 20:00] VITALS: BP 129/76
[2020-05-04] MEDS: TraZODone 50mg tab ORAL SCH (20:27)
[2020-05-04] MEDS: cefTRIAXone 1 GM in D5W 55 ML IVPB SCH (20:28)
--- NOTE | 2020-05-04 23:00 | NUR ---
NURSE NOTES: Received patient report from IRMA Hawk. Patient shows no signs of distress or pain at the time. Patient is AO x4. IV intact and patent. There are no signs of erythema, infiltration, or bleeding. Bed is in the lowest position, call light is within reach, urinal within reach, and side rails up x 3. Will continue to monitor.
--- NOTE | 2020-05-04 23:16 | NUR ---
NURSE NOTES: Patient has not had bowel movement since the . Asked patient if he wanted miralax and he said he will take it tomorrow.
[2020-05-05] VITALS: BP 125/72
[2020-05-05 04:00] VITALS: BP 115/65
[2020-05-05 05:29] LABS: BASOPHILS % (AUTO) 0.7 % (0.0-2.0); EOSINOPHILS % (AUTO) 1.1 % (0.0-3.0); HEMATOCRIT 41.7 % (42.0-52.0); HEMOGLOBIN 13.9 G/DL (14.2-18.0); LYMPHOCYTES % (AUTO) 23.9 % (20.0-45.0); MEAN CORPUSCULAR VOLUME 93 FL (80-99); MONOCYTES % (AUTO) 11.1 % (1.0-10.0); NEUTROPHILS % (AUTO) 63.2 % (45.0-75.0); PLATELET COUNT 127 K/UL (150-450); RED BLOOD COUNT 4.46 M/UL (4.70-6.10); RED CELL DISTRIBUTION WIDTH 12.4 % (11.6-14.8); WHITE BLOOD COUNT 6.4 K/UL (4.8-10.8)
[2020-05-05 05:44] LABS: ANION GAP 8 mmol/L (5-15); BLOOD UREA NITROGEN 15 mg/dL (7-18); CALCIUM 8.9 MG/DL (8.5-10.1); CARBON DIOXIDE 29 MMOL/L (21-32); CHLORIDE 102 MMOL/L (98-107); CREATININE 0.7 MG/DL (0.55-1.30); POTASSIUM 3.2 MMOL/L (3.5-5.1); SODIUM 139 MMOL/L (136-145)
--- NOTE | 2020-05-05 07:27 | NUR ---
HAND-OFF: Report given to IRMA Olson. Patient shows no signs of distress or pain at the time. Endorsed plan of care.
--- NOTE | 2020-05-05 07:30 | NUR ---
NURSE NOTES: Received report from IRMA Mary. Patient AAO x4. Denies pain. No acute distress. Breathing regular and unlabored on 2L NC. Radial pulses palpable. IV patent and flushed, intact. Educated pt. on importance of changing positions and shifting weight in bed. Fall education also provided. Bed low and locked, call light/urinal in reach, side rails raised x2.
[2020-05-05 08:00] VITALS: BP 115/61
[2020-05-05] MEDS: Heparin 5000 units/ml inj SUBQ SCH ×2 (09:52→20:47)
--- NOTE | 2020-05-05 11:47 | Pulmonology Progress Note ---
Subjective ROS Limited/Unobtainable: No Constitutional: Reports: no symptoms HEENT: Repors: no symptoms Respiratory: Reports: no symptoms Allergies: Coded Allergies: FISH CONTAINING PRODUCTS (Verified Allergy, Unknown, 05/02/20) Per Patient Objective Last 24 Hour Vital Signs Date Time Temp Pulse Resp B/P (MAP) Pulse Ox O2 Delivery O2 Flow Rate FiO2 05/05/20 09:00 Nasal Cannula 2.0 05/05/20 08:00 88 05/05/20 08:00 98.1 88 20 115/61 (79) 96 05/05/20 04:00 72 05/05/20 04:00 97.5 75 17 115/65 (82) 96 05/05/20 00:00 98.2 91 19 125/72 (89) 96 05/05/20 00:00 80 05/04/20 23:14 Nasal Cannula 2.0 05/04/20 20:00 98.1 98 19 129/76 (93) 94 05/04/20 20:00 77 05/04/20 16:00 97.6 81 17 126/81 (96) 97 05/04/20 15:41 82 05/04/20 11:54 98.1 87 19 120/81 (94) 96 Intake and Output 05/04/20 05/05/20 19:00 07:00 Intake Total 2850.000 ml 650 ml Output Total 800 ml Balance 2850.000 ml -150 ml Intake Oral 650 ml IV Total 1650.000 ml Other 1200 ml Output Urine Total 800 ml General Appearance: cachetic HEENT: normocephalic, atraumatic Respiratory: chest wall non-tender, lungs clear Cardiovascular: normal peripheral pulses, regular rhythm Abdomen: normal bowel sounds, soft, non tender Genitourinary: normal external genitalia Extremities: no clubbing Skin: no lesions Microbiology Date/Time Source Procedure Growth Status 05/02/20 12:00 Blood Blood Culture - Preliminary NO GROWTH AFTER 48 HOURS Resulted 05/02/20 11:50 Blood Blood Culture - Preliminary NO GROWTH AFTER 48 HOURS Resulted 05/03/20 17:30 Nasopharynx Coronavirus COVID-19 PCR ([facility]) - Final Complete Laboratory Tests 05/05/20 04:00: White Blood Count 6.4, Red Blood Count 4.46L, Hemoglobin 13.9L, Hematocrit 41.7L , Mean Corpuscular Volume 93, Mean Corpuscular Hemoglobin 31.1H, Mean Corpuscular Hemoglobin Concent 33.3, Red Cell Distribution Width 12.4, Platelet Count 127L, Mean Platelet Volume 6.2L, Neutrophils (%) (Auto) 63.2, Lymphocytes (%) (Auto) 23.9, Monocytes (%) (Auto) 11.1H, Eosinophils (%) (Auto) 1.1, Basophils (%) (Auto) 0.7, Sodium Level 139, Potassium Level 3.2L, Chloride Level 102, Carbon Dioxide Level 29, Anion Gap 8, Blood Urea Nitrogen 15, Creatinine 0.7, Estimat Glomerular Filtration Rate > 60, Glucose Level 132H, Calcium Level 8.9 Current Medications Medications (Trade) Dose Ordered Sig/Martha Route PRN Reason Start Time Stop Time Status Last Admin Dose Admin Acetaminophen (Tylenol) 650 mg Q4H PRN ORAL T>100.5 05/03/20 14:15 06/02/20 14:14 Albuterol Sulfate (Proventil MDI) 2 puff Q4H PRN INH Shortness of Breath 05/03/20 14:15 08/01/20 14:14 Azithromycin 250 mg/Dextrose 275 ml @ 275 mls/hr Q24HRS IV 05/03/20 18:00 05/06/20 17:59 05/04/20 17:34 Ceftriaxone Sodium 1 gm/ Dextrose 55 ml @ 110 mls/hr Q24H IVPB 05/03/20 20:00 05/07/20 19:59 05/04/20 20:28 Dexamethasone (Decadron) 4 mg DAILY ORAL 05/04/20 09:00 05/13/20 08:59 05/05/20 09:49 Dextrose (Dextrose 50%) 25 ml Q30M PRN IV Hypoglycemia 05/03/20 14:30 07/29/20 19:29 Dextrose (Dextrose 50%) 50 ml Q30M PRN IV Hypoglycemia 05/03/20 14:30 07/29/20 19:29 Heparin Sodium (Porcine) (Heparin 5000 units/ml) 5,000 units EVERY 12 HOURS SUBQ 05/03/20 21:00 06/14/20 20:59 05/05/20 09:52 Metoprolol Tartrate (Lopressor) 5 mg Q6H PRN IVP Tachycardia 05/03/20 14:15 08/01/20 14:14 Ondansetron HCl (Zofran) 4 mg Q6H PRN IVP Nausea & Vomiting 05/03/20 14:15 06/02/20 14:14 Polyethylene Glycol (Miralax) 17 gm DAILYPRN PRN ORAL Constipation 05/03/20 14:15 06/02/20 14:14 Promethazine HCl/ Codeine (Phenergan with Codeine) 5 ml Q6H PRN ORAL cough 05/03/20 14:16 06/02/20 14:15 05/04/20 22:30 Sodium Chloride 1,000 ml @ 75 mls/hr [id number] IV 05/03/20 14:30 06/02/20 14:29 05/05/20 05:54 Trazodone HCl (Desyrel) 50 mg BEDTIME ORAL 05/03/20 21:00 05/31/20 20:59 05/04/20 20:27 Assessment/Plan Problems: (1) COPD exacerbation (2) Suspected COVID-19 virus infection (3) Emphysema of lung (4) Severe protein-calorie malnutrition Assessment/Plan COVID negative times one COVID PCR pending respiratory treatment taper steroids dc iv fouid titrate fio2 antitussives f/u ID recommendations. Leighann Underwood MD May 05, 2020 11:47
[2020-05-05 12:00] VITALS: BP 111/65
--- NOTE | 2020-05-05 12:55 | NUR ---
RD ASSESSMENT & RECOMMENDATIONS SEE CARE ACTIVITY FOR COMPLETE ASSESSMENT DAILY ESTIMATED NEEDS: Needs based on COPD, underweight/ 59kg 30-35 kcals/kg 7145-5832 total kcals 1-1.5 g protein/kg 59-89 g total protein 25-30 mL/kg 9662-1917 total fluid mLs NUTRITION DIAGNOSIS: Increased kcal/prot needs R/T underweight status, pulmonary dx as evidenced by BMI of 17.2, pt @ 71% IBW, h/o COPD. CURRENT DIET:REGULAR PO DIET RECOMMENDATIONS: Liberalized REGULAR/ texture as tolerated + Ensure Enlive TID w/ meals ADDITIONAL RECOMMENDATIONS: * Calibrated bedscale wt for accurate CBW * Monitor for continued nausea- add Gingerale to tray -> w/ continued nausea, consider add zofran ~30 mins prior to meal times * Wound care: ZELALEM BID if tolerated * Ensure Enlive TID w/ meals * Monitor BGs closely while on Decadron, need for carb restriction * MVI x 1 once nausea resolves
--- NOTE | 2020-05-05 13:13 | NUR ---
CASE MANAGEMENT:REVIEW SI;COPD EXACERBATION. BACTEREMIA. 98.8 91 20 125/72 96% 2L NC K+ 3.2 IS;DEXAMETHASONE PO QD HEPARIN SUBQ Q12 ROCEPHIN IV Q24 ZITHROMAX IV Q24 PHENERGAN W/CODEINE PROVENTIL INH LOPRESSOR Q6 MED SURG STATUS DCP;FROM HOME
--- NOTE | 2020-05-05 13:33 | NUR ---
NURSE NOTES: Dr. Tran aware K 3.2, no new orders at this time.
--- NOTE | 2020-05-05 13:53 | Cardiology Progress Note ---
Assessment/Plan Assessment/Plan 1. Supraventricular tachycardia. 2. COPD with exacerbation. 3. Cough, sputum production, pending COVID. 4. Bacteremia, probable contamination. 5. History of tuberculosis, status post treatment. 6. Hypotension post episode of tachycardi st depression in multiple leads due to demand mismatch at time of severe tachy trop abn due to demand as profoundly tachy durign svt which may have been going on for ginna with hr up to 201 per reprot repeat ekg st changes resolved check trop echo poor visualization tele persoanlly reviwed no svt no vt no pauses he indicates his non ambualtory he yuniel soem leg exercie in the bed without any cp nor sob Subjective Cardiovascular: Denies: chest pain, lightheadedness, palpitations, syncope Respiratory: Reports: cough, shortness of breath, wheezing Gastrointestinal/Abdominal: Denies: abdominal pain, black stools, constipated, nausea, vomiting Genitourinary: Denies: burning Objective Last 24 Hour Vital Signs Date Time Temp Pulse Resp B/P (MAP) Pulse Ox O2 Delivery O2 Flow Rate FiO2 05/05/20 12:00 77 05/05/20 12:00 98.8 77 18 111/65 (80) 96 05/05/20 09:00 Nasal Cannula 2.0 05/05/20 08:00 88 05/05/20 08:00 98.1 88 20 115/61 (79) 96 05/05/20 04:00 72 05/05/20 04:00 97.5 75 17 115/65 (82) 96 05/05/20 00:00 98.2 91 19 125/72 (89) 96 05/05/20 00:00 80 05/04/20 23:14 Nasal Cannula 2.0 05/04/20 20:00 98.1 98 19 129/76 (93) 94 05/04/20 20:00 77 05/04/20 16:00 97.6 81 17 126/81 (96) 97 05/04/20 15:41 82 General Appearance: no apparent distress, alert, patient on isolation Extremities: no swelling Intake and Output 05/04/20 05/05/20 19:00 07:00 Intake Total 2850.000 ml 650 ml Output Total 800 ml Balance 2850.000 ml -150 ml Intake Oral 650 ml IV Total 1650.000 ml Other 1200 ml Output Urine Total 800 ml Laboratory Tests Test 05/05/20 04:00 White Blood Count 6.4 K/UL (4.8-10.8) Red Blood Count 4.46 M/UL (4.70-6.10) L Hemoglobin 13.9 G/DL (14.2-18.0) L Hematocrit 41.7 % (42.0-52.0) L Mean Corpuscular Volume 93 FL (80-99) Mean Corpuscular Hemoglobin 31.1 PG (27.0-31.0) H Mean Corpuscular Hemoglobin Concent 33.3 G/DL (32.0-36.0) Red Cell Distribution Width 12.4 % (11.6-14.8) Platelet Count 127 K/UL (150-450) L Mean Platelet Volume 6.2 FL (6.5-10.1) L Neutrophils (%) (Auto) 63.2 % (45.0-75.0) Lymphocytes (%) (Auto) 23.9 % (20.0-45.0) Monocytes (%) (Auto) 11.1 % (1.0-10.0) H Eosinophils (%) (Auto) 1.1 % (0.0-3.0) Basophils (%) (Auto) 0.7 % (0.0-2.0) Sodium Level 139 MMOL/L (136-145) Potassium Level 3.2 MMOL/L (3.5-5.1) L Chloride Level 102 MMOL/L (98-107) Carbon Dioxide Level 29 MMOL/L (21-32) Anion Gap 8 mmol/L (5-15) Blood Urea Nitrogen 15 mg/dL (7-18) Creatinine 0.7 MG/DL (0.55-1.30) Estimat Glomerular Filtration Rate > 60 mL/min (>60) Glucose Level 132 MG/DL (74-106) H Calcium Level 8.9 MG/DL (8.5-10.1) Microbiology Date/Time Source Procedure Growth Status 05/03/20 17:30 Nasopharynx Coronavirus COVID-19 PCR ([facility]) - Final Complete Saad Presley MD May 05, 2020 13:53
--- NOTE | 2020-05-05 14:17 | NUR ---
INSURANCE ALL AVAILABLE CLINICALS AND REVIEWS HAVE BEEN FAXED TO [facility] P: [phone] F: [phone]
--- NOTE | 2020-05-05 15:14 | Infectious Diseases Prog Note ---
Assessment/Plan Assessment: COPD exacerbation-COVID 19 neg x2 -05/03 SARS-COV2 PCR neg -05/01 Sp cx normal resp gary -04/30 CXR: No acute process SARS-COV2 PCR neg Afebrile NO leukocytosis CONS/Diphteroids bacteremia- likely contaminant -04/30 Bcx 1/4 diphteroids, 1/4 CONS; 05/02 Bcx NTD COPD/emphysema tobacco abuse ETOH abuse ?treated TB Plan: -Continue to monitor off abx -05/04 SP Ceftriaxone and Azithromycin #5/5, IV Vancomycin #3 -f/u cx -Monitor CBC/CMP, temperatures -COVID19 neg x2; ok to dc iso Thank you for consulting [facility]. Will continue to follow along with you. Alex toth RN. Subjective Allergies: Coded Allergies: FISH CONTAINING PRODUCTS (Verified Allergy, Unknown, 05/02/20) Per Patient afebrile at 2l nC repeat Bcx NTD 2nd COVID neg Objective Last 24 Hour Vital Signs Date Time Temp Pulse Resp B/P (MAP) Pulse Ox O2 Delivery O2 Flow Rate FiO2 05/05/20 12:00 77 05/05/20 12:00 98.8 77 18 111/65 (80) 96 05/05/20 09:00 Nasal Cannula 2.0 05/05/20 08:00 88 05/05/20 08:00 98.1 88 20 115/61 (79) 96 05/05/20 04:00 72 05/05/20 04:00 97.5 75 17 115/65 (82) 96 05/05/20 00:00 98.2 91 19 125/72 (89) 96 05/05/20 00:00 80 05/04/20 23:14 Nasal Cannula 2.0 05/04/20 20:00 98.1 98 19 129/76 (93) 94 05/04/20 20:00 77 05/04/20 16:00 97.6 81 17 126/81 (96) 97 05/04/20 15:41 82 Height (Feet): 6 Height (Inches): 1.00 Weight (Pounds): 130 GENERAL: The patient is awake, responsive, in no acute distress, chronically ill-appearing. HEAD AND NECK: Pupils are equal and reactive to light. Extraocular movements intact. Neck was supple. No JVD. LUNGS: Good air entry. No wheezing or rales. HEART: S1, S2. Regular rhythm. No murmur or gallops. ABDOMEN: Soft, nondistended, nontender. Positive bowel sounds. EXTREMITIES: No cyanosis, clubbing, or edema. Microbiology Date/Time Source Procedure Growth Status 05/03/20 17:30 Nasopharynx Coronavirus COVID-19 PCR ([facility]) - Final Complete Laboratory Tests Test 05/05/20 04:00 White Blood Count 6.4 K/UL (4.8-10.8) Red Blood Count 4.46 M/UL (4.70-6.10) L Hemoglobin 13.9 G/DL (14.2-18.0) L Hematocrit 41.7 % (42.0-52.0) L Mean Corpuscular Volume 93 FL (80-99) Mean Corpuscular Hemoglobin 31.1 PG (27.0-31.0) H Mean Corpuscular Hemoglobin Concent 33.3 G/DL (32.0-36.0) Red Cell Distribution Width 12.4 % (11.6-14.8) Platelet Count 127 K/UL (150-450) L Mean Platelet Volume 6.2 FL (6.5-10.1) L Neutrophils (%) (Auto) 63.2 % (45.0-75.0) Lymphocytes (%) (Auto) 23.9 % (20.0-45.0) Monocytes (%) (Auto) 11.1 % (1.0-10.0) H Eosinophils (%) (Auto) 1.1 % (0.0-3.0) Basophils (%) (Auto) 0.7 % (0.0-2.0) Sodium Level 139 MMOL/L (136-145) Potassium Level 3.2 MMOL/L (3.5-5.1) L Chloride Level 102 MMOL/L (98-107) Carbon Dioxide Level 29 MMOL/L (21-32) Anion Gap 8 mmol/L (5-15) Blood Urea Nitrogen 15 mg/dL (7-18) Creatinine 0.7 MG/DL (0.55-1.30) Estimat Glomerular Filtration Rate > 60 mL/min (>60) Glucose Level 132 MG/DL (74-106) H Calcium Level 8.9 MG/DL (8.5-10.1) Current Medications Medications (Trade) Dose Ordered Sig/Martha Route PRN Reason Start Time Stop Time Status Last Admin Dose Admin Acetaminophen (Tylenol) 650 mg Q4H PRN ORAL T>100.5 05/03/20 14:15 06/02/20 14:14 Albuterol Sulfate (Proventil MDI) 2 puff Q4H PRN INH Shortness of Breath 05/03/20 14:15 08/01/20 14:14 Azithromycin 250 mg/Dextrose 275 ml @ 275 mls/hr Q24HRS IV 05/03/20 18:00 05/06/20 17:59 05/04/20 17:34 Ceftriaxone Sodium 1 gm/ Dextrose 55 ml @ 110 mls/hr Q24H IVPB 05/03/20 20:00 05/07/20 19:59 05/04/20 20:28 Dexamethasone (Decadron) 2 mg DAILY ORAL 05/06/20 09:00 05/13/20 08:59 Dextrose (Dextrose 50%) 25 ml Q30M PRN IV Hypoglycemia 05/03/20 14:30 07/29/20 19:29 Dextrose (Dextrose 50%) 50 ml Q30M PRN IV Hypoglycemia 05/03/20 14:30 07/29/20 19:29 Heparin Sodium (Porcine) (Heparin 5000 units/ml) 5,000 units EVERY 12 HOURS SUBQ 05/03/20 21:00 06/14/20 20:59 05/05/20 09:52 Metoprolol Tartrate (Lopressor) 5 mg Q6H PRN IVP Tachycardia 05/03/20 14:15 08/01/20 14:14 Ondansetron HCl (Zofran) 4 mg Q6H PRN IVP Nausea & Vomiting 05/03/20 14:15 06/02/20 14:14 Polyethylene Glycol (Miralax) 17 gm DAILYPRN PRN ORAL Constipation 05/03/20 14:15 06/02/20 14:14 Promethazine HCl/ Codeine (Phenergan with Codeine) 5 ml Q6H PRN ORAL cough 05/03/20 14:16 06/02/20 14:15 05/04/20 22:30 Trazodone HCl (Desyrel) 50 mg BEDTIME ORAL 05/03/20 21:00 05/31/20 20:59 05/04/20 20:27 Alexsandra Potts M.D. May 05, 2020 15:14
[2020-05-05 15:31] VITALS: BP 122/77
--- NOTE | 2020-05-05 18:17 | NUR ---
NURSE NOTES: Received TORB from Dr. Tran for KCl 40 meq PO x1.
--- NOTE | 2020-05-05 18:18 | NUR ---
NURSE NOTES: Pt. refused linen change.
--- NOTE | 2020-05-05 19:08 | Internal Med Progress Note ---
Subjective Physician Name AmarilysMamadou Attending Physician Vishal Tran MD Current Medications Medications (Trade) Dose Ordered Sig/Martha Route PRN Reason Start Time Stop Time Status Last Admin Dose Admin Acetaminophen (Tylenol) 650 mg Q4H PRN ORAL T>100.5 05/03/20 14:15 06/02/20 14:14 Albuterol Sulfate (Proventil MDI) 2 puff Q4H PRN INH Shortness of Breath 05/03/20 14:15 08/01/20 14:14 Dexamethasone (Decadron) 2 mg DAILY ORAL 05/06/20 09:00 05/13/20 08:59 Dextrose (Dextrose 50%) 25 ml Q30M PRN IV Hypoglycemia 05/03/20 14:30 07/29/20 19:29 Dextrose (Dextrose 50%) 50 ml Q30M PRN IV Hypoglycemia 05/03/20 14:30 07/29/20 19:29 Heparin Sodium (Porcine) (Heparin 5000 units/ml) 5,000 units EVERY 12 HOURS SUBQ 05/03/20 21:00 06/14/20 20:59 05/05/20 09:52 Metoprolol Tartrate (Lopressor) 5 mg Q6H PRN IVP Tachycardia 05/03/20 14:15 08/01/20 14:14 Ondansetron HCl (Zofran) 4 mg Q6H PRN IVP Nausea & Vomiting 05/03/20 14:15 06/02/20 14:14 Polyethylene Glycol (Miralax) 17 gm DAILYPRN PRN ORAL Constipation 05/03/20 14:15 06/02/20 14:14 05/05/20 18:26 Potassium Chloride (K-Dur) 40 meq ONCE ORAL 05/05/20 18:30 05/05/20 19:30 05/05/20 18:41 Promethazine HCl/ Codeine (Phenergan with Codeine) 5 ml Q6H PRN ORAL cough 05/03/20 14:16 06/02/20 14:15 05/04/20 22:30 Trazodone HCl (Desyrel) 50 mg BEDTIME ORAL 05/03/20 21:00 05/31/20 20:59 05/04/20 20:27 Allergies: Coded Allergies: FISH CONTAINING PRODUCTS (Verified Allergy, Unknown, 05/02/20) Per Patient ROS Limited/Unobtainable: No Constitutional: Reports: no symptoms HEENT: Reports: no symptoms Cardiovascular: Reports: no symptoms Respiratory: Reports: shortness of breath Gastrointestinal/Abdominal: Reports: no symptoms Genitourinary: Reports: no symptoms Neurologic/Psychiatric: Reports: no symptoms Subjective 64 YO M admitted with shortness of breath. Now COPD exacerbation. Cover for Int Juanpablo-Dr Tran Objective Last Vital Signs Date Time Temp Pulse Resp B/P (MAP) Pulse Ox O2 Delivery O2 Flow Rate FiO2 05/05/20 16:00 84 05/05/20 15:31 97.7 20 122/77 (92) 96 05/05/20 09:00 Nasal Cannula 2.0 04/30/20 14:30 98 Laboratory Tests Test 05/05/20 04:00 White Blood Count 6.4 K/UL (4.8-10.8) Red Blood Count 4.46 M/UL (4.70-6.10) L Hemoglobin 13.9 G/DL (14.2-18.0) L Hematocrit 41.7 % (42.0-52.0) L Mean Corpuscular Volume 93 FL (80-99) Mean Corpuscular Hemoglobin 31.1 PG (27.0-31.0) H Mean Corpuscular Hemoglobin Concent 33.3 G/DL (32.0-36.0) Red Cell Distribution Width 12.4 % (11.6-14.8) Platelet Count 127 K/UL (150-450) L Mean Platelet Volume 6.2 FL (6.5-10.1) L Neutrophils (%) (Auto) 63.2 % (45.0-75.0) Lymphocytes (%) (Auto) 23.9 % (20.0-45.0) Monocytes (%) (Auto) 11.1 % (1.0-10.0) H Eosinophils (%) (Auto) 1.1 % (0.0-3.0) Basophils (%) (Auto) 0.7 % (0.0-2.0) Sodium Level 139 MMOL/L (136-145) Potassium Level 3.2 MMOL/L (3.5-5.1) L Chloride Level 102 MMOL/L (98-107) Carbon Dioxide Level 29 MMOL/L (21-32) Anion Gap 8 mmol/L (5-15) Blood Urea Nitrogen 15 mg/dL (7-18) Creatinine 0.7 MG/DL (0.55-1.30) Estimat Glomerular Filtration Rate > 60 mL/min (>60) Glucose Level 132 MG/DL (74-106) H Calcium Level 8.9 MG/DL (8.5-10.1) Microbiology Date/Time Source Procedure Growth Status 05/03/20 17:30 Nasopharynx Coronavirus COVID-19 PCR ([facility]) - Final Complete Intake and Output 05/04/20 05/05/20 19:00 07:00 Intake Total 2850.000 ml 725 ml Output Total 800 ml Balance 2850.000 ml -75 ml Intake Oral 650 ml IV Total 1650.000 ml 75 ml Other 1200 ml Output Urine Total 800 ml Objective PHYSICAL EXAMINATION: GENERAL: The patient is awake, responsive, in no acute distress, chronically ill-appearing. HEAD AND NECK: Pupils are equal and reactive to light. Extraocular movements intact. Neck was supple. No JVD. LUNGS: Good air entry. No wheezing or rales. HEART: S1, S2. Regular rhythm. No murmur or gallops. ABDOMEN: Soft, nondistended, nontender. Positive bowel sounds. EXTREMITIES: No cyanosis, clubbing, or edema. NEUROLOGIC: Cranial nerves II through XII grossly intact. Motor is 5/5 in all extremities. Gait was not assessed due to the patient's status. RECTAL: Refused and deferred. GENITOURINARY: Refused and deferred. PSYCHIATRIC: Mood and affect is intact. Assessment/Plan Assessment/Plan ASSESSMENT: 1. Shortness of breath, most likely secondary to the acute COPD exacerbation. 2. COVID-19 = Negative. 3. Chronic smoker with emphysematous lung. 4. Severe protein-calorie malnutrition. 5. Inability to ambulate. PLAN: 1. Admit the patient to medical floor. We will follow up with 2. antibiotic = vanco, azithromycin and Rocephin. 3. Code status is Full Code. 4. DVT prophylaxis, heparin subcu. We 5. Dr. Underwood =Pulmonary/Critical Care 6. HIV test=Mamadou Cade MD May 05, 2020 19:08
--- NOTE | 2020-05-05 19:15 | NUR ---
NURSE NOTES: RECEIVED REPORT FROM IRMA BASSETT. AAOX4, VERBALLY RESPONSIVE AND ABLE TO MAKE NEEDS KNOWN. NO COMPLAINTS OF PAIN OR DISCOMFORT AT THIS TIME. BREATHING IS EVEN AND UNLABORED ON 2LPM VIA NC, NO S/SX OF DISTRESS NOTED. IV SITE ON RIGHT HAND PATENT, INTACT, ASYMPTOMATIC, AND SALINE-LOCKED. FALL PRECAUTIONS IN PLACE. CONTACT ISOLATION IN PLACE. BED LOCKED AND IN LOWEST POSITION, SIDERAILS UP X 3. CALL LIGHT AND URINAL WITHIN REACH. WILL CONTINUE TO MONITOR FOR ANY CHANGES. Addendum: 05/06/20 at 0038 by Vidhi Zarco RN SEIZURE PRECAUTIONS IN PLACE
--- NOTE | 2020-05-05 19:27 | NUR ---
NURSE NOTES: Reported off to IRMA Mosher.
[2020-05-05 20:00] VITALS: BP 117/76
[2020-05-05] MEDS: TraZODone 50mg tab ORAL SCH (20:44)
[2020-05-06] VITALS: BP 109/63
--- NOTE | 2020-05-06 04:31 | NUR ---
NURSE NOTES: PATIENT REFUSED 0400 V/S, AND LINEN CHANGE. PATIENT ALSO REQUESTED THAT HIS DINNER FROM 05/05 BE LEFT AT BEDSIDE.
[2020-05-06 06:00] VITALS: BP 115/65
--- NOTE | 2020-05-06 06:00 | NUR ---
NURSE NOTES: PATIENT AGREED TO HAVE VITALS TAKEN. HOWEVER, PATIENT STILL REFUSED LINEN TO BE CHANGED. PATIENT STILL HAS NOT HAD A BOWEL MOVEMENT. OFFERED PATIENT MILK OF MAGNESIA PRESCRIBED, HOWEVER PATIENT REFUSES STATING HE "FEELS LIKE SOMETHING WILL HAPPEN SOON". INFORMED PATIENT TO INFORM US IF HE CHANGES HIS MIND.
[2020-05-06 06:19] LABS: BASOPHILS % (AUTO) 0.9 % (0.0-2.0); EOSINOPHILS % (AUTO) 1.2 % (0.0-3.0); HEMATOCRIT 43.3 % (42.0-52.0); HEMOGLOBIN 14.7 G/DL (14.2-18.0); LYMPHOCYTES % (AUTO) 22.7 % (20.0-45.0); MEAN CORPUSCULAR VOLUME 93 FL (80-99); MONOCYTES % (AUTO) 13.2 % (1.0-10.0); PLATELET COUNT 157 K/UL (150-450); RED BLOOD COUNT 4.67 M/UL (4.70-6.10); RED CELL DISTRIBUTION WIDTH 12.3 % (11.6-14.8); WHITE BLOOD COUNT 7.1 K/UL (4.8-10.8)
[2020-05-06 07:05] LABS: ANION GAP 6 mmol/L (5-15); BLOOD UREA NITROGEN 10 mg/dL (7-18); CARBON DIOXIDE 31 MMOL/L (21-32); CHLORIDE 100 MMOL/L (98-107); CREATININE 0.5 MG/DL (0.55-1.30); POTASSIUM 3.9 MMOL/L (3.5-5.1); SODIUM 137 MMOL/L (136-145)
--- NOTE | 2020-05-06 07:23 | NUR ---
HAND-OFF: Report given to SRI DE LA ROSA. PLAN OF CARE ENDORSED.
--- NOTE | 2020-05-06 07:30 | NUR ---
NURSE NOTES: RECEIVED PATIENT A/A/OX4 LYING IN BED CALM AND COMFORTABLE. HOB ELEVATED. ADEQUATE AMOUNT OF FOOD INTAKE. TOLERATING IT WELL. SIDERAILS ARE PADDED FOR SEIZURE PRECAUTIONS. NO ACUTE RESP DISTRESS NOTED. BED IS IN THE LOWEST POSITION. SIDERAILS ARE UPX3. BED IS LOCK MODE AND BRAKES ENGAGED. CALL LIGHT IS WITHIN REACH. WILL CONT TO MONITOR.
[2020-05-06 08:00] VITALS: BP 109/65
[2020-05-06] MEDS: Heparin 5000 units/ml inj SUBQ SCH ×2 (08:50→20:28)
--- NOTE | 2020-05-06 10:24 | NUR ---
DISCHARGE PLANNING REPORT ON PATIENT STATUS PROVIDED TO DR SHEPHERD. GAVE TO/RB TO DC HOME. NOTED AND CARRIED OUT.Neisha [place] INFORMED.
[2020-05-06 12:01] VITALS: BP 111/61
--- NOTE | 2020-05-06 12:09 | Infectious Diseases Prog Note ---
Assessment/Plan Assessment: COPD exacerbation-COVID 19 neg x2 -05/03 SARS-COV2 PCR neg -05/01 Sp cx normal resp gary -04/30 CXR: No acute process SARS-COV2 PCR neg Afebrile NO leukocytosis CONS/Diphteroids bacteremia- likely contaminant -04/30 Bcx 1/ diphteroids, 1/ CONS; 05/02 Bcx NTD COPD/emphysema tobacco abuse ETOH abuse ?treated TB Plan: -Continue to monitor off abx -05/04 SP Ceftriaxone and Azithromycin #5/5, IV Vancomycin #3 -f/u cx -Monitor CBC/CMP, temperatures -COVID19 neg x2; ok to dc iso Thank you for consulting [facility]. Will continue to follow along with you. Alex toth RN. Subjective Allergies: Coded Allergies: FISH CONTAINING PRODUCTS (Verified Allergy, Unknown, 05/02/20) Per Patient afebrile at 2l nC repeat Bcx NTD Objective Last 24 Hour Vital Signs Date Time Temp Pulse Resp B/P (MAP) Pulse Ox O2 Delivery O2 Flow Rate FiO2 05/06/20 12:01 97.9 77 18 111/61 (78) 96 05/06/20 08:54 77 05/06/20 08:00 97.9 91 20 109/65 (80) 97 05/06/20 06:00 98.1 80 20 115/65 (82) 99 05/06/20 04:00 75 05/06/20 00:00 76 05/06/20 00:00 97.9 83 18 109/63 (78) 98 05/05/20 21:00 Nasal Cannula 2.0 05/05/20 20:00 79 05/05/20 20:00 99.1 75 17 117/76 (90) 96 05/05/20 16:00 84 05/05/20 15:31 97.7 79 20 122/77 (92) 96 Height (Feet): 6 Height (Inches): 1.00 Weight (Pounds): 135 GENERAL: The patient is awake, responsive, in no acute distress, chronically ill-appearing. HEAD AND NECK: Pupils are equal and reactive to light. Extraocular movements intact. Neck was supple. No JVD. LUNGS: Good air entry. No wheezing or rales. HEART: S1, S2. Regular rhythm. No murmur or gallops. ABDOMEN: Soft, nondistended, nontender. Positive bowel sounds. EXTREMITIES: No cyanosis, clubbing, or edema. Microbiology Date/Time Source Procedure Growth Status 05/03/20 17:30 Nasopharynx Coronavirus COVID-19 PCR (MAN[facility]EL) - Final Complete Laboratory Tests Test 05/06/20 05:45 White Blood Count 7.1 K/UL (4.8-10.8) Red Blood Count 4.67 M/UL (4.70-6.10) L Hemoglobin 14.7 G/DL (14.2-18.0) Hematocrit 43.3 % (42.0-52.0) Mean Corpuscular Volume 93 FL (80-99) Mean Corpuscular Hemoglobin 31.5 PG (27.0-31.0) H Mean Corpuscular Hemoglobin Concent 33.9 G/DL (32.0-36.0) Red Cell Distribution Width 12.3 % (11.6-14.8) Platelet Count 157 K/UL (150-450) Mean Platelet Volume 6.7 FL (6.5-10.1) Neutrophils (%) (Auto) 62.0 % (45.0-75.0) Lymphocytes (%) (Auto) 22.7 % (20.0-45.0) Monocytes (%) (Auto) 13.2 % (1.0-10.0) H Eosinophils (%) (Auto) 1.2 % (0.0-3.0) Basophils (%) (Auto) 0.9 % (0.0-2.0) Sodium Level 137 MMOL/L (136-145) Potassium Level 3.9 MMOL/L (3.5-5.1) Chloride Level 100 MMOL/L (98-107) Carbon Dioxide Level 31 MMOL/L (21-32) Anion Gap 6 mmol/L (5-15) Blood Urea Nitrogen 10 mg/dL (7-18) Creatinine 0.5 MG/DL (0.55-1.30) L Estimat Glomerular Filtration Rate > 60 mL/min (>60) Glucose Level 91 MG/DL (74-106) Calcium Level 9.0 MG/DL (8.5-10.1) Current Medications Medications (Trade) Dose Ordered Sig/Martha Route PRN Reason Start Time Stop Time Status Last Admin Dose Admin Acetaminophen (Tylenol) 650 mg Q4H PRN ORAL T>100.5 05/03/20 14:15 06/02/20 14:14 Albuterol Sulfate (Proventil MDI) 2 puff Q4H PRN INH Shortness of Breath 05/03/20 14:15 08/01/20 14:14 Dexamethasone (Decadron) 2 mg DAILY ORAL 05/06/20 09:00 05/13/20 08:59 05/06/20 08:41 Dextrose (Dextrose 50%) 25 ml Q30M PRN IV Hypoglycemia 05/03/20 14:30 07/29/20 19:29 Dextrose (Dextrose 50%) 50 ml Q30M PRN IV Hypoglycemia 05/03/20 14:30 07/29/20 19:29 Heparin Sodium (Porcine) (Heparin 5000 units/ml) 5,000 units EVERY 12 HOURS SUBQ 05/03/20 21:00 06/14/20 20:59 05/06/20 08:50 Metoprolol Tartrate (Lopressor) 5 mg Q6H PRN IVP Tachycardia 05/03/20 14:15 08/01/20 14:14 Ondansetron HCl (Zofran) 4 mg Q6H PRN IVP Nausea & Vomiting 05/03/20 14:15 06/02/20 14:14 Polyethylene Glycol (Miralax) 17 gm DAILYPRN PRN ORAL Constipation 05/03/20 14:15 06/02/20 14:14 05/05/20 18:26 Promethazine HCl/ Codeine (Phenergan with Codeine) 5 ml Q6H PRN ORAL cough 05/03/20 14:16 06/02/20 14:15 05/04/20 22:30 Trazodone HCl (Desyrel) 50 mg BEDTIME ORAL 05/03/20 21:00 05/31/20 20:59 05/05/20 20:44 Alexsandra Potts M.D. May 06, 2020 12:09
--- NOTE | 2020-05-06 12:19 | Pulmonology Progress Note ---
Subjective ROS Limited/Unobtainable: No Interval Events: still coughing, no sputum yet, still BUTLER Constitutional: Reports: no symptoms HEENT: Repors: no symptoms Respiratory: Reports: no symptoms Allergies: Coded Allergies: FISH CONTAINING PRODUCTS (Verified Allergy, Unknown, 05/02/20) Per Patient Objective Last 24 Hour Vital Signs Date Time Temp Pulse Resp B/P (MAP) Pulse Ox O2 Delivery O2 Flow Rate FiO2 05/06/20 12:01 97.9 77 18 111/61 (78) 96 05/06/20 08:54 77 05/06/20 08:00 97.9 91 20 109/65 (80) 97 05/06/20 06:00 98.1 80 20 115/65 (82) 99 05/06/20 04:00 75 05/06/20 00:00 76 05/06/20 00:00 97.9 83 18 109/63 (78) 98 05/05/20 21:00 Nasal Cannula 2.0 05/05/20 20:00 79 05/05/20 20:00 99.1 75 17 117/76 (90) 96 05/05/20 16:00 84 05/05/20 15:31 97.7 79 20 122/77 (92) 96 Intake and Output 05/05/20 05/06/20 19:00 07:00 Intake Total 660 ml 1010 ml Output Total 1050 ml 2400 ml Balance -390 ml -1390 ml Intake Oral 360 ml 360 ml IV Total 300 ml Other 650 ml Output Urine Total 1050 ml 2400 ml General Appearance: cachetic HEENT: normocephalic, atraumatic Respiratory: chest wall non-tender, rhonchi - left, rhonchi - right Cardiovascular: normal peripheral pulses, regular rhythm Abdomen: normal bowel sounds, soft, non tender Genitourinary: normal external genitalia Extremities: no clubbing Skin: no lesions Microbiology Date/Time Source Procedure Growth Status 05/03/20 17:30 Nasopharynx Coronavirus COVID-19 PCR ([facility]EL) - Final Complete Laboratory Tests 05/06/20 05:45: White Blood Count 7.1, Red Blood Count 4.67L, Hemoglobin 14.7, Hematocrit 43.3, Mean Corpuscular Volume 93, Mean Corpuscular Hemoglobin 31.5H, Mean Corpuscular Hemoglobin Concent 33.9, Red Cell Distribution Width 12.3, Platelet Count 157, Mean Platelet Volume 6.7, Neutrophils (%) (Auto) 62.0, Lymphocytes (%) (Auto) 22.7, Monocytes (%) (Auto) 13.2H, Eosinophils (%) (Auto) 1.2, Basophils (%) ( Auto) 0.9, Sodium Level 137, Potassium Level 3.9, Chloride Level 100, Carbon Dioxide Level 31, Anion Gap 6, Blood Urea Nitrogen 10, Creatinine 0.5L, Estimat Glomerular Filtration Rate > 60, Glucose Level 91, Calcium Level 9.0 Current Medications Medications (Trade) Dose Ordered Sig/Martha Route PRN Reason Start Time Stop Time Status Last Admin Dose Admin Acetaminophen (Tylenol) 650 mg Q4H PRN ORAL T>100.5 05/03/20 14:15 06/02/20 14:14 Albuterol Sulfate (Proventil MDI) 2 puff Q4H PRN INH Shortness of Breath 05/03/20 14:15 08/01/20 14:14 Dexamethasone (Decadron) 2 mg DAILY ORAL 05/06/20 09:00 05/13/20 08:59 05/06/20 08:41 Dextrose (Dextrose 50%) 25 ml Q30M PRN IV Hypoglycemia 05/03/20 14:30 07/29/20 19:29 Dextrose (Dextrose 50%) 50 ml Q30M PRN IV Hypoglycemia 05/03/20 14:30 07/29/20 19:29 Heparin Sodium (Porcine) (Heparin 5000 units/ml) 5,000 units EVERY 12 HOURS SUBQ 05/03/20 21:00 06/14/20 20:59 05/06/20 08:50 Metoprolol Tartrate (Lopressor) 5 mg Q6H PRN IVP Tachycardia 05/03/20 14:15 08/01/20 14:14 Ondansetron HCl (Zofran) 4 mg Q6H PRN IVP Nausea & Vomiting 05/03/20 14:15 06/02/20 14:14 Polyethylene Glycol (Miralax) 17 gm DAILYPRN PRN ORAL Constipation 05/03/20 14:15 06/02/20 14:14 05/05/20 18:26 Promethazine HCl/ Codeine (Phenergan with Codeine) 5 ml Q6H PRN ORAL cough 05/03/20 14:16 06/02/20 14:15 05/04/20 22:30 Trazodone HCl (Desyrel) 50 mg BEDTIME ORAL 05/03/20 21:00 05/31/20 20:59 05/05/20 20:44 Assessment/Plan Problems: (1) COPD exacerbation (2) Supraventricular tachycardia (3) Severe protein-calorie malnutrition (4) Emphysema of lung (5) Suspected COVID-19 virus infection Assessment & Plan: COVID negative times two Assessment/Plan repeat cxr today pt.ot evaluation COVID negative times 2 COVID PCR pending respiratory treatment taper steroids off iv fouids and IV abx titrate fio2 antitussives f/u ID recommendations. cardiology recommendations appreciated Leighann Underwood MD May 06, 2020 12:19
--- NOTE | 2020-05-06 12:35 | NUR ---
NURSE NOTES: DISCHARGE HOME PLACED BY [facility]BER [facility]LEMAN VIA TO. AWAITING FOR PMD FOR MED REC UPON D/C TO ENTER. WILL CONT TO MONITOR.
--- NOTE | 2020-05-06 13:34 | Diagnostic Imaging Report ---
Indication: Shortness of breath Technique: One view of the chest Comparison: 04/30/2020 Findings: Lungs are mildly hyperinflated. The heart size is normal. No infiltrates, effusions, or congestion. Surgical hardware again demonstrated in the right shoulder. No significant interim change Impression: No acute process COPD changes
--- NOTE | 2020-05-06 15:20 | NUR ---
INSURANCE UPDATED CLINICALS HAVE BEEN FAXED TO [facility] P: [phone] F: [phone]
--- NOTE | 2020-05-06 15:44 | NUR ---
*-* DISCHARGE PLANNING *-* PATIENT HAS BEEN REFERRED TO: 1. [facility] P: [phone] F: [phone] 2.[facility] P: [id number] F: [phone] 3. [facility] P: F: [phone] 4. [facility] P: F: [phone] 5. [facility] p: [phone] f: [phone] Addendum: 05/06/20 at 1615 by MALIK CASAS CM [address]. [facility] P: F: [phone] *-*S/W THEE HUTCHISON IS REVIEWING *-* 2.[employer] P: [phone] F: [phone] *-* S/W FABY NOT ACCEPTING NEW ADMISSION UNTIL 2 WEEKS *-* 3. [facility] P: F: [phone] *-* S/W ELENA SHE WILL CALL US BACK *-* 4. [facility] P: F: [phone] *-* NO ANSWER WILL CONTINUE TO CALL *-* 5. [facility] p: [phone] f: [phone] *-* S/W NUHA AVILES WILL CALL US BACK *-* Johnny MORIAH F: [phone] Addendum: 05/06/20 at 1648 by MALIK CASAS CM 7. [facility] p; [phone] f: [phone] [employer]: [phone] *-* spoke to mily he will reviews and call us back tomorrow. Addendum: 05/06/20 at 1659 by MALIK CASAS CM 8. [facility]; [phone] f: [phone]
[2020-05-06 16:00] VITALS: BP 115/60
--- NOTE | 2020-05-06 18:52 | Internal Med Progress Note ---
Subjective Date of Service: May 06, 2020 Physician Name Mamadou Panda Attending Physician Vishal Tran MD Current Medications Medications (Trade) Dose Ordered Sig/Martha Route PRN Reason Start Time Stop Time Status Last Admin Dose Admin Acetaminophen (Tylenol) 650 mg Q4H PRN ORAL T>100.5 05/03/20 14:15 06/02/20 14:14 Albuterol Sulfate (Proventil MDI) 2 puff Q4H PRN INH Shortness of Breath 05/03/20 14:15 08/01/20 14:14 Dexamethasone (Decadron) 2 mg DAILY ORAL 05/06/20 09:00 05/13/20 08:59 05/06/20 08:41 Dextrose (Dextrose 50%) 25 ml Q30M PRN IV Hypoglycemia 05/03/20 14:30 07/29/20 19:29 Dextrose (Dextrose 50%) 50 ml Q30M PRN IV Hypoglycemia 05/03/20 14:30 07/29/20 19:29 Heparin Sodium (Porcine) (Heparin 5000 units/ml) 5,000 units EVERY 12 HOURS SUBQ 05/03/20 21:00 06/14/20 20:59 05/06/20 08:50 Metoprolol Tartrate (Lopressor) 5 mg Q6H PRN IVP Tachycardia 05/03/20 14:15 08/01/20 14:14 Ondansetron HCl (Zofran) 4 mg Q6H PRN IVP Nausea & Vomiting 05/03/20 14:15 06/02/20 14:14 Polyethylene Glycol (Miralax) 17 gm DAILYPRN PRN ORAL Constipation 05/03/20 14:15 06/02/20 14:14 05/05/20 18:26 Promethazine HCl/ Codeine (Phenergan with Codeine) 5 ml Q6H PRN ORAL cough 05/03/20 14:16 06/02/20 14:15 05/04/20 22:30 Trazodone HCl (Desyrel) 50 mg BEDTIME ORAL 05/03/20 21:00 05/31/20 20:59 05/05/20 20:44 Allergies: Coded Allergies: FISH CONTAINING PRODUCTS (Verified Allergy, Unknown, 05/02/20) Per Patient ROS Limited/Unobtainable: No Constitutional: Reports: no symptoms HEENT: Reports: no symptoms Cardiovascular: Reports: no symptoms Respiratory: Reports: no symptoms Gastrointestinal/Abdominal: Reports: no symptoms Genitourinary: Reports: no symptoms Neurologic/Psychiatric: Reports: no symptoms Subjective 64 YO M admitted with shortness of breath. Now COPD exacerbation. Cover for Int Juanpablo-Dr Tran Objective Last Vital Signs Date Time Temp Pulse Resp B/P (MAP) Pulse Ox O2 Delivery O2 Flow Rate FiO2 05/06/20 16:00 97.5 83 20 115/60 (78) 97 05/06/20 09:00 Nasal Cannula 2.0 04/30/20 14:30 98 Laboratory Tests Test 05/06/20 05:45 White Blood Count 7.1 K/UL (4.8-10.8) Red Blood Count 4.67 M/UL (4.70-6.10) L Hemoglobin 14.7 G/DL (14.2-18.0) Hematocrit 43.3 % (42.0-52.0) Mean Corpuscular Volume 93 FL (80-99) Mean Corpuscular Hemoglobin 31.5 PG (27.0-31.0) H Mean Corpuscular Hemoglobin Concent 33.9 G/DL (32.0-36.0) Red Cell Distribution Width 12.3 % (11.6-14.8) Platelet Count 157 K/UL (150-450) Mean Platelet Volume 6.7 FL (6.5-10.1) Neutrophils (%) (Auto) 62.0 % (45.0-75.0) Lymphocytes (%) (Auto) 22.7 % (20.0-45.0) Monocytes (%) (Auto) 13.2 % (1.0-10.0) H Eosinophils (%) (Auto) 1.2 % (0.0-3.0) Basophils (%) (Auto) 0.9 % (0.0-2.0) Sodium Level 137 MMOL/L (136-145) Potassium Level 3.9 MMOL/L (3.5-5.1) Chloride Level 100 MMOL/L (98-107) Carbon Dioxide Level 31 MMOL/L (21-32) Anion Gap 6 mmol/L (5-15) Blood Urea Nitrogen 10 mg/dL (7-18) Creatinine 0.5 MG/DL (0.55-1.30) L Estimat Glomerular Filtration Rate > 60 mL/min (>60) Glucose Level 91 MG/DL (74-106) Calcium Level 9.0 MG/DL (8.5-10.1) Intake and Output 05/05/20 05/06/20 19:00 07:00 Intake Total 660 ml 1010 ml Output Total 1050 ml 2400 ml Balance -390 ml -1390 ml Intake Oral 360 ml 360 ml IV Total 300 ml Other 650 ml Output Urine Total 1050 ml 2400 ml Objective PHYSICAL EXAMINATION: GENERAL: The patient is awake, responsive, in no acute distress, chronically ill-appearing. HEAD AND NECK: Pupils are equal and reactive to light. Extraocular movements intact. Neck was supple. No JVD. LUNGS: Good air entry. No wheezing or rales. HEART: S1, S2. Regular rhythm. No murmur or gallops. ABDOMEN: Soft, nondistended, nontender. Positive bowel sounds. EXTREMITIES: No cyanosis, clubbing, or edema. NEUROLOGIC: Cranial nerves II through XII grossly intact. Motor is 5/5 in all extremities. Gait was not assessed due to the patient's status. RECTAL: Refused and deferred. GENITOURINARY: Refused and deferred. PSYCHIATRIC: Mood and affect is intact. Assessment/Plan Assessment/Plan ASSESSMENT: 1. Shortness of breath, most likely secondary to the acute COPD exacerbation. 2. COVID-19 = Negative. 3. Chronic smoker with emphysematous lung. 4. Severe protein-calorie malnutrition. 5. Inability to ambulate. PLAN: 1. Admit the patient to medical floor. We will follow up with 2. antibiotic = vanco, azithromycin and Rocephin. 3. Code status is Full Code. 4. DVT prophylaxis, heparin subcu. We 5. Dr. Underwood =Pulmonary/Critical Care 6. HIV test=neg 7. Discharge planning Mamadou Panda MD May 06, 2020 18:52
--- NOTE | 2020-05-06 19:06 | NUR ---
HAND-OFF: Report given to Petrona.
--- NOTE | 2020-05-06 19:10 | NUR ---
NURSE NOTES: RECEIVED REPORT FROM SRI DE LA ROSA. PATIENT AWAKE IN BED, AOX4, VERBALLY RESPONSIVE AND ABLE TO MAKE NEEDS KNOWN. NOTED TO BE IN SUPINE POSITION, REFUSED TO BE TURNED- PER PATIENT, HE CAN REPOSITION HIMSELF. NO COMPLAINTS OF PAIN OR DISCOMFORT AT THIS TIME. BREATHING EVEN AND UNLABORED ON ROOM AIR, NO S/SX OF DISTRESS NOTED. IV SITE ON RIGHT HAND PATENT, INTACT, ASYMPTOMATIC AND SALINE-LOCKED. BED LOCKED AND IN LOWEST POSITION, SIDERAILS UP X 3. FALL AND SEIZURE PRECAUTIONS IN PLACE. CALL LIGHT AND URINAL WITHIN REACH. WILL CONTINUE TO MONITOR FOR ANY CHANGES. Addendum: 05/06/20 at [id number] by Vidhi Zarco RN *ON 2LPM VIA NC
[2020-05-06 20:00] VITALS: BP 106/57
--- NOTE | 2020-05-06 20:04 | Cardiology Progress Note ---
Assessment/Plan Assessment/Plan 1. Supraventricular tachycardia. 2. COPD with exacerbation. 3. Cough, sputum production, pending COVID. 4. Bacteremia, probable contamination. 5. History of tuberculosis, status post treatment. 6. Hypotension post episode of tachycardi st depression in multiple leads due to demand mismatch at time of severe tachy trop abn due to demand as profoundly tachy durign svt which may have been going on for ginna with hr up to 201 per reprot repeat ekg st changes resolved check trop echo poor visualization tele persoanlly reviwed no svt no vt no pauses he indicates his non ambualtory he yuniel soem leg exercie in the bed without any cp nor sob Objective Last 24 Hour Vital Signs Date Time Temp Pulse Resp B/P (MAP) Pulse Ox O2 Delivery O2 Flow Rate FiO2 05/06/20 16:00 90 05/06/20 16:00 97.5 83 20 115/60 (78) 97 05/06/20 12:50 77 05/06/20 12:01 97.9 77 18 111/61 (78) 96 05/06/20 09:00 Nasal Cannula 2.0 05/06/20 08:54 77 05/06/20 08:00 97.9 91 20 109/65 (80) 97 05/06/20 06:00 98.1 80 20 115/65 (82) 99 05/06/20 04:00 75 05/06/20 00:00 76 05/06/20 00:00 97.9 83 18 109/63 (78) 98 05/05/20 21:00 Nasal Cannula 2.0 Intake and Output 05/05/20 05/06/20 19:00 07:00 Intake Total 660 ml 1010 ml Output Total 1050 ml 2400 ml Balance -390 ml -1390 ml Intake Oral 360 ml 360 ml IV Total 300 ml Other 650 ml Output Urine Total 1050 ml 2400 ml Laboratory Tests Test 05/06/20 05:45 White Blood Count 7.1 K/UL (4.8-10.8) Red Blood Count 4.67 M/UL (4.70-6.10) L Hemoglobin 14.7 G/DL (14.2-18.0) Hematocrit 43.3 % (42.0-52.0) Mean Corpuscular Volume 93 FL (80-99) Mean Corpuscular Hemoglobin 31.5 PG (27.0-31.0) H Mean Corpuscular Hemoglobin Concent 33.9 G/DL (32.0-36.0) Red Cell Distribution Width 12.3 % (11.6-14.8) Platelet Count 157 K/UL (150-450) Mean Platelet Volume 6.7 FL (6.5-10.1) Neutrophils (%) (Auto) 62.0 % (45.0-75.0) Lymphocytes (%) (Auto) 22.7 % (20.0-45.0) Monocytes (%) (Auto) 13.2 % (1.0-10.0) H Eosinophils (%) (Auto) 1.2 % (0.0-3.0) Basophils (%) (Auto) 0.9 % (0.0-2.0) Sodium Level 137 MMOL/L (136-145) Potassium Level 3.9 MMOL/L (3.5-5.1) Chloride Level 100 MMOL/L (98-107) Carbon Dioxide Level 31 MMOL/L (21-32) Anion Gap 6 mmol/L (5-15) Blood Urea Nitrogen 10 mg/dL (7-18) Creatinine 0.5 MG/DL (0.55-1.30) L Estimat Glomerular Filtration Rate > 60 mL/min (>60) Glucose Level 91 MG/DL (74-106) Calcium Level 9.0 MG/DL (8.5-10.1) Saad Presley MD May 06, 2020 20:04
[2020-05-06] MEDS: TraZODone 50mg tab ORAL SCH (20:26)
--- NOTE | 2020-05-06 20:32 | NUR ---
NURSE NOTES: PER PATIENT, HE HAD A BOWEL MOVEMENT, BUT DOES NOT WANT TO BE CHANGED UNTIL 2200 WHEN HE FEELS LIKE HE WILL BE "COMPLETELY EMPTY". EDUCATED PATIENT ON PRESSURE INJURY PREVENTION, INCLUDING THE EFFECTS OF MOISTURE ON THE SKIN. PATIENT VERBALIZED UNDERSTANDING, BUT STILL REQUESTS TO BE CHANGED AT 2200; PER PATIENT, HE TAKES 2-3 HOURS TO COMPLETE ONE BOWEL MOVEMENT.
--- NOTE | 2020-05-06 23:45 | NUR ---
NURSE NOTES: PATIENT CHANGED, PARTIAL SPONGE BATH GIVEN, LINEN AND GOWN CHANGED; OPTIFOAM PLACED ON SACRAL AREA.
[2020-05-07] VITALS: BP 104/64
--- NOTE | 2020-05-07 01:30 | NUR ---
NURSE NOTES: PATIENT ASLEEP IN BED, APPEARS CALM AND COMFORTABLE. NO S/SX OF PAIN OR DISCOMFORT AT THIS TIME. BREATHING EVEN AND UNLABORED ON 2LPM VIA NC, NO S/SX OF DISTRESS NOTED. BED LOCKED AND IN LOWEST POSITION, SIDERAILS UP X 3. CALL LIGHT WITHIN REACH. WILL CONTINUE TO MONITOR FOR ANY CHANGES.
[2020-05-07 04:00] VITALS: BP 105/56
[2020-05-07 06:39] LABS: BASOPHILS % (AUTO) 1.5 % (0.0-2.0); EOSINOPHILS % (AUTO) 2.4 % (0.0-3.0); HEMATOCRIT 47.2 % (42.0-52.0); HEMOGLOBIN 15.8 G/DL (14.2-18.0); LYMPHOCYTES % (AUTO) 25.9 % (20.0-45.0); MEAN CORPUSCULAR VOLUME 94 FL (80-99); MONOCYTES % (AUTO) 18.8 % (1.0-10.0); NEUTROPHILS % (AUTO) 51.4 % (45.0-75.0); PLATELET COUNT 194 K/UL (150-450); RED BLOOD COUNT 5.02 M/UL (4.70-6.10); RED CELL DISTRIBUTION WIDTH 12.7 % (11.6-14.8); WHITE BLOOD COUNT 6.1 K/UL (4.8-10.8)
[2020-05-07 07:05] LABS: ANION GAP 7 mmol/L (5-15); BLOOD UREA NITROGEN 16 mg/dL (7-18); CALCIUM 9.2 MG/DL (8.5-10.1); CARBON DIOXIDE 30 MMOL/L (21-32); CHLORIDE 99 MMOL/L (98-107); CREATININE 0.6 MG/DL (0.55-1.30); SODIUM 136 MMOL/L (136-145)
--- NOTE | 2020-05-07 07:31 | NUR ---
HAND-OFF: Report given to NELLY/IRMA ALVAREZ. PATIENT IN STABLE CONDITION. PLAN OF CARE ENDORSED.
--- NOTE | 2020-05-07 07:36 | NUR ---
NURSE NOTES: Received report from Vidhi SOLIS. Pt in bed alert and awake, eating breakfast. Bed locked and in lowest position, seizure precautions in place. Call light within reach. Whiteboard updated. No complaint of pain or signs distress at this time. Pt talkative.
[2020-05-07 08:00] VITALS: BP 94/57
[2020-05-07] MEDS: Heparin 5000 units/ml inj SUBQ SCH ×2 (09:58→22:22)
--- NOTE | 2020-05-07 11:00 | Pulmonology Progress Note ---
Subjective ROS Limited/Unobtainable: No Interval Events: still coughing, no sputum yet, still BUTLER Constitutional: Reports: no symptoms HEENT: Repors: no symptoms Respiratory: Reports: no symptoms Allergies: Coded Allergies: FISH CONTAINING PRODUCTS (Verified Allergy, Unknown, 05/02/20) Per Patient Objective Last 24 Hour Vital Signs Date Time Temp Pulse Resp B/P (MAP) Pulse Ox O2 Delivery O2 Flow Rate FiO2 05/07/20 08:00 98.1 89 19 94/57 (69) 97 05/07/20 04:00 85 05/07/20 04:00 97.5 82 20 105/56 (72) 98 05/07/20 00:00 98 05/07/20 00:00 98.0 90 20 104/64 (77) 96 05/06/20 21:00 Nasal Cannula 2.0 05/06/20 20:00 98.3 91 20 106/57 (73) 96 05/06/20 20:00 87 05/06/20 16:00 90 05/06/20 16:00 97.5 83 20 115/60 (78) 97 05/06/20 12:50 77 05/06/20 12:01 97.9 77 18 111/61 (78) 96 Intake and Output 05/06/20 05/07/20 19:00 07:00 Intake Total 360 ml 720 ml Output Total 1100 ml 1100 ml Balance -740 ml -380 ml Intake Oral 360 ml 720 ml Output Urine Total 1100 ml 1100 ml # Bowel Movements 1 General Appearance: cachetic HEENT: normocephalic, atraumatic Respiratory: chest wall non-tender, rhonchi - left, rhonchi - right Cardiovascular: normal peripheral pulses, regular rhythm Abdomen: normal bowel sounds, soft, non tender Genitourinary: normal external genitalia Extremities: no clubbing Skin: no lesions Laboratory Tests 05/07/20 06:22: White Blood Count 6.1, Red Blood Count 5.02, Hemoglobin 15.8, Hematocrit 47.2, Mean Corpuscular Volume 94, Mean Corpuscular Hemoglobin 31.4H, Mean Corpuscular Hemoglobin Concent 33.5, Red Cell Distribution Width 12.7, Platelet Count 194, Mean Platelet Volume 6.3L, Neutrophils (%) (Auto) 51.4, Lymphocytes (%) (Auto) 25.9, Monocytes (%) (Auto) 18.8H, Eosinophils (%) (Auto) 2.4, Basophils (%) ( Auto) 1.5, Sodium Level 136, Potassium Level 4.0, Chloride Level 99, Carbon Dioxide Level 30, Anion Gap 7, Blood Urea Nitrogen 16, Creatinine 0.6, Estimat Glomerular Filtration Rate > 60, Glucose Level 91, Calcium Level 9.2 Current Medications Medications (Trade) Dose Ordered Sig/Martha Route PRN Reason Start Time Stop Time Status Last Admin Dose Admin Acetaminophen (Tylenol) 650 mg Q4H PRN ORAL T>100.5 05/03/20 14:15 06/02/20 14:14 Albuterol Sulfate (Proventil MDI) 2 puff Q4H PRN INH Shortness of Breath 05/03/20 14:15 08/01/20 14:14 Dexamethasone (Decadron) 2 mg DAILY ORAL 05/06/20 09:00 05/13/20 08:59 05/07/20 09:56 Dextrose (Dextrose 50%) 25 ml Q30M PRN IV Hypoglycemia 05/03/20 14:30 07/29/20 19:29 Dextrose (Dextrose 50%) 50 ml Q30M PRN IV Hypoglycemia 05/03/20 14:30 07/29/20 19:29 Heparin Sodium (Porcine) (Heparin 5000 units/ml) 5,000 units EVERY 12 HOURS SUBQ 05/03/20 21:00 06/14/20 20:59 05/07/20 09:58 Metoprolol Tartrate (Lopressor) 5 mg Q6H PRN IVP Tachycardia 05/03/20 14:15 08/01/20 14:14 Ondansetron HCl (Zofran) 4 mg Q6H PRN IVP Nausea & Vomiting 05/03/20 14:15 06/02/20 14:14 Polyethylene Glycol (Miralax) 17 gm DAILYPRN PRN ORAL Constipation 05/03/20 14:15 06/02/20 14:14 05/05/20 18:26 Promethazine HCl/ Codeine (Phenergan with Codeine) 5 ml Q6H PRN ORAL cough 05/03/20 14:16 06/02/20 14:15 05/04/20 22:30 Trazodone HCl (Desyrel) 50 mg BEDTIME ORAL 05/03/20 21:00 05/31/20 20:59 05/06/20 20:26 Assessment/Plan Problems: (1) COPD exacerbation (2) Supraventricular tachycardia (3) Severe protein-calorie malnutrition (4) Emphysema of lung (5) Suspected COVID-19 virus infection Assessment & Plan: COVID negative times two Assessment/Plan repeat cxr didn't show any new changes pt.ot evaluation COVID negative times 2 COVID PCR pending respiratory treatment taper steroids off iv fouids and IV abx titrate fio2 antitussives f/u ID recommendations. cardiology recommendations appreciated Leighann Underwood MD May 07, 2020 11:00
--- NOTE | 2020-05-07 11:23 | NUR ---
P.T Note: P.T consult received. P.T evaluation attempted however pt refused stated that he has reached the point that he no longer need physical therapy services since he is under hospice care and everything set up for him. Pt stated he has been non ambulatory and staff assist him for OOB to W/C ( motorize chair ) transfers and does his exercise routine. Will D/C P.T service. RN notified.
[2020-05-07 12:00] VITALS: BP 97/58
--- NOTE | 2020-05-07 12:27 | NUR ---
Discharge planning: CM recieved call from [facility] Patient is accepted to [facility] T: [phone] F: [phone] Bed#111B Waiting for insurance to provide ANDREA skilled to facility
--- NOTE | 2020-05-07 12:56 | NUR ---
CASE MANAGEMENT:REVIEW 05/06/20 SI;COPD EXACERBATION. BACTEREMIA. 99.1 91 20 109/65 97% 2L NC IS;DECADRON PO QD HEPARIN SUBQ Q12 PHENERGAN W/CODEINE PO TELE STATUS DCPSNF PLACEMENT CASE MANAGEMENT:REVIEW 05/07/20 SI;COPD EXACERBATION. BACTEREMIA. 98.8 98 20 94/57 96% 2L NC IS;DECADRON PO QD HEPARIN SUBQ Q12 PHENERGAN W/CODEINE PO TELE STATUS DCP;SNF PLACEMENT PATIENT HAS BEEN ACCEPTED TO [facility] BED ASSIGNMENT PENDING ANDREA TO SNF
--- NOTE | 2020-05-07 13:32 | NUR ---
DISCHARGE PLANNING CALL MADE TO VIRGINIA SANCHEZ AT [facility] [phone] IN RE TO STATUS OF AUTH FOR SNF PLACEMENT. NO ANSWER AT TIME OF CALL. LEFT REQUESTING CALL BACK. WILL FOLLOW UP
--- NOTE | 2020-05-07 15:34 | Infectious Diseases Prog Note ---
Assessment/Plan Assessment: COPD exacerbation-COVID 19 neg x2 -05/06 CXR: No acute process. COPD changes -05/03 SARS-COV2 PCR neg -05/01 Sp cx normal resp gary -04/30 CXR: No acute process SARS-COV2 PCR neg Afebrile NO leukocytosis CONS/Diphteroids bacteremia- likely contaminant -04/30 Bcx 1/4 diphteroids, 1/4 CONS; 05/02 Bcx NTD COPD/emphysema tobacco abuse ETOH abuse ?treated TB Plan: -Continue to monitor off abx -05/04 SP Ceftriaxone and Azithromycin #5/5, IV Vancomycin #3 -f/u cx -Monitor CBC/CMP, temperatures -COVID19 neg x2; ok to dc iso Thank you for consulting [facility]. Will continue to follow along with you. Alex toth RN. Subjective Allergies: Coded Allergies: FISH CONTAINING PRODUCTS (Verified Allergy, Unknown, 05/02/20) Per Patient afebrile at 2l nC feels better Objective Last 24 Hour Vital Signs Date Time Temp Pulse Resp B/P (MAP) Pulse Ox O2 Delivery O2 Flow Rate FiO2 05/07/20 12:00 93 05/07/20 12:00 98.8 94 19 97/58 (71) 99 05/07/20 09:00 Nasal Cannula 2.0 05/07/20 08:00 90 05/07/20 08:00 98.1 89 19 94/57 (69) 97 05/07/20 04:00 85 05/07/20 04:00 97.5 82 20 105/56 (72) 98 05/07/20 00:00 98 05/07/20 00:00 98.0 90 20 104/64 (77) 96 05/06/20 21:00 Nasal Cannula 2.0 05/06/20 20:00 98.3 91 20 106/57 (73) 96 05/06/20 20:00 87 05/06/20 16:00 90 05/06/20 16:00 97.5 83 20 115/60 (78) 97 Height (Feet): 6 Height (Inches): 1.00 Weight (Pounds): 135 GENERAL: The patient is awake, responsive, in no acute distress, chronically ill-appearing. LUNGS: Good air entry. No wheezing or rales. HEART: S1, S2. Regular rhythm. No murmur or gallops. ABDOMEN: Soft, nondistended, nontender. Positive bowel sounds. EXTREMITIES: No cyanosis, clubbing, or edema. Laboratory Tests Test 05/07/20 06:22 White Blood Count 6.1 K/UL (4.8-10.8) Red Blood Count 5.02 M/UL (4.70-6.10) Hemoglobin 15.8 G/DL (14.2-18.0) Hematocrit 47.2 % (42.0-52.0) Mean Corpuscular Volume 94 FL (80-99) Mean Corpuscular Hemoglobin 31.4 PG (27.0-31.0) H Mean Corpuscular Hemoglobin Concent 33.5 G/DL (32.0-36.0) Red Cell Distribution Width 12.7 % (11.6-14.8) Platelet Count 194 K/UL (150-450) Mean Platelet Volume 6.3 FL (6.5-10.1) L Neutrophils (%) (Auto) 51.4 % (45.0-75.0) Lymphocytes (%) (Auto) 25.9 % (20.0-45.0) Monocytes (%) (Auto) 18.8 % (1.0-10.0) H Eosinophils (%) (Auto) 2.4 % (0.0-3.0) Basophils (%) (Auto) 1.5 % (0.0-2.0) Sodium Level 136 MMOL/L (136-145) Potassium Level 4.0 MMOL/L (3.5-5.1) Chloride Level 99 MMOL/L (98-107) Carbon Dioxide Level 30 MMOL/L (21-32) Anion Gap 7 mmol/L (5-15) Blood Urea Nitrogen 16 mg/dL (7-18) Creatinine 0.6 MG/DL (0.55-1.30) Estimat Glomerular Filtration Rate > 60 mL/min (>60) Glucose Level 91 MG/DL (74-106) Calcium Level 9.2 MG/DL (8.5-10.1) Current Medications Medications (Trade) Dose Ordered Sig/Martha Route PRN Reason Start Time Stop Time Status Last Admin Dose Admin Acetaminophen (Tylenol) 650 mg Q4H PRN ORAL T>100.5 05/03/20 14:15 06/02/20 14:14 Albuterol Sulfate (Proventil MDI) 2 puff Q4H PRN INH Shortness of Breath 05/03/20 14:15 08/01/20 14:14 Dextrose (Dextrose 50%) 25 ml Q30M PRN IV Hypoglycemia 05/03/20 14:30 07/29/20 19:29 Dextrose (Dextrose 50%) 50 ml Q30M PRN IV Hypoglycemia 05/03/20 14:30 07/29/20 19:29 Heparin Sodium (Porcine) (Heparin 5000 units/ml) 5,000 units EVERY 12 HOURS SUBQ 05/03/20 21:00 06/14/20 20:59 05/07/20 09:58 Metoprolol Tartrate (Lopressor) 5 mg Q6H PRN IVP Tachycardia 05/03/20 14:15 08/01/20 14:14 Ondansetron HCl (Zofran) 4 mg Q6H PRN IVP Nausea & Vomiting 05/03/20 14:15 06/02/20 14:14 Polyethylene Glycol (Miralax) 17 gm DAILYPRN PRN ORAL Constipation 05/03/20 14:15 06/02/20 14:14 05/05/20 18:26 Promethazine HCl/ Codeine (Phenergan with Codeine) 5 ml Q6H PRN ORAL cough 05/03/20 14:16 06/02/20 14:15 05/04/20 22:30 Trazodone HCl (Desyrel) 50 mg BEDTIME ORAL 05/03/20 21:00 05/31/20 20:59 05/06/20 20:26 Alexsandra Potts M.D. May 07, 2020 15:34
[2020-05-07 16:00] VITALS: BP 136/64
--- NOTE | 2020-05-07 17:09 | Internal Med Progress Note ---
Subjective Date of Service: May 07, 2020 Physician Name Mamadou Panda Attending Physician Vishal Tran MD Current Medications Medications (Trade) Dose Ordered Sig/Martha Route PRN Reason Start Time Stop Time Status Last Admin Dose Admin Acetaminophen (Tylenol) 650 mg Q4H PRN ORAL T>100.5 05/03/20 14:15 06/02/20 14:14 Albuterol Sulfate (Proventil MDI) 2 puff Q4H PRN INH Shortness of Breath 05/03/20 14:15 08/01/20 14:14 Dextrose (Dextrose 50%) 25 ml Q30M PRN IV Hypoglycemia 05/03/20 14:30 07/29/20 19:29 Dextrose (Dextrose 50%) 50 ml Q30M PRN IV Hypoglycemia 05/03/20 14:30 07/29/20 19:29 Heparin Sodium (Porcine) (Heparin 5000 units/ml) 5,000 units EVERY 12 HOURS SUBQ 05/03/20 21:00 06/14/20 20:59 05/07/20 09:58 Metoprolol Tartrate (Lopressor) 5 mg Q6H PRN IVP Tachycardia 05/03/20 14:15 08/01/20 14:14 Ondansetron HCl (Zofran) 4 mg Q6H PRN IVP Nausea & Vomiting 05/03/20 14:15 06/02/20 14:14 Polyethylene Glycol (Miralax) 17 gm DAILYPRN PRN ORAL Constipation 05/03/20 14:15 06/02/20 14:14 05/05/20 18:26 Promethazine HCl/ Codeine (Phenergan with Codeine) 5 ml Q6H PRN ORAL cough 05/03/20 14:16 06/02/20 14:15 05/04/20 22:30 Trazodone HCl (Desyrel) 50 mg BEDTIME ORAL 05/03/20 21:00 05/31/20 20:59 05/06/20 20:26 Allergies: Coded Allergies: FISH CONTAINING PRODUCTS (Verified Allergy, Unknown, 05/02/20) Per Patient ROS Limited/Unobtainable: No Constitutional: Reports: no symptoms HEENT: Reports: no symptoms Cardiovascular: Reports: no symptoms Respiratory: Reports: shortness of breath Gastrointestinal/Abdominal: Reports: no symptoms Genitourinary: Reports: no symptoms Neurologic/Psychiatric: Reports: no symptoms Subjective 64 YO M admitted with shortness of breath. Now COPD exacerbation. Cover for Int Juanpablo-Dr Tran Objective Last Vital Signs Date Time Temp Pulse Resp B/P (MAP) Pulse Ox O2 Delivery O2 Flow Rate FiO2 05/07/20 16:00 98.4 89 20 136/64 (88) 97 05/07/20 09:00 Nasal Cannula 2.0 04/30/20 14:30 98 Laboratory Tests Test 05/07/20 06:22 White Blood Count 6.1 K/UL (4.8-10.8) Red Blood Count 5.02 M/UL (4.70-6.10) Hemoglobin 15.8 G/DL (14.2-18.0) Hematocrit 47.2 % (42.0-52.0) Mean Corpuscular Volume 94 FL (80-99) Mean Corpuscular Hemoglobin 31.4 PG (27.0-31.0) H Mean Corpuscular Hemoglobin Concent 33.5 G/DL (32.0-36.0) Red Cell Distribution Width 12.7 % (11.6-14.8) Platelet Count 194 K/UL (150-450) Mean Platelet Volume 6.3 FL (6.5-10.1) L Neutrophils (%) (Auto) 51.4 % (45.0-75.0) Lymphocytes (%) (Auto) 25.9 % (20.0-45.0) Monocytes (%) (Auto) 18.8 % (1.0-10.0) H Eosinophils (%) (Auto) 2.4 % (0.0-3.0) Basophils (%) (Auto) 1.5 % (0.0-2.0) Sodium Level 136 MMOL/L (136-145) Potassium Level 4.0 MMOL/L (3.5-5.1) Chloride Level 99 MMOL/L (98-107) Carbon Dioxide Level 30 MMOL/L (21-32) Anion Gap 7 mmol/L (5-15) Blood Urea Nitrogen 16 mg/dL (7-18) Creatinine 0.6 MG/DL (0.55-1.30) Estimat Glomerular Filtration Rate > 60 mL/min (>60) Glucose Level 91 MG/DL (74-106) Calcium Level 9.2 MG/DL (8.5-10.1) Intake and Output 05/06/20 05/07/20 19:00 07:00 Intake Total 360 ml 720 ml Output Total 1100 ml 1100 ml Balance -740 ml -380 ml Intake Oral 360 ml 720 ml Output Urine Total 1100 ml 1100 ml # Bowel Movements 1 Objective PHYSICAL EXAMINATION: GENERAL: The patient is awake, responsive, in no acute distress, chronically ill-appearing. HEAD AND NECK: Pupils are equal and reactive to light. Extraocular movements intact. Neck was supple. No JVD. LUNGS: Good air entry. No wheezing or rales. HEART: S1, S2. Regular rhythm. No murmur or gallops. ABDOMEN: Soft, nondistended, nontender. Positive bowel sounds. EXTREMITIES: No cyanosis, clubbing, or edema. NEUROLOGIC: Cranial nerves II through XII grossly intact. Motor is 5/5 in all extremities. Gait was not assessed due to the patient's status. RECTAL: Refused and deferred. GENITOURINARY: Refused and deferred. PSYCHIATRIC: Mood and affect is intact. Assessment/Plan Assessment/Plan ASSESSMENT: 1. Shortness of breath, most likely secondary to the acute COPD exacerbation. 2. COVID-19 = Negative. 3. Chronic smoker with emphysematous lung. 4. Severe protein-calorie malnutrition. 5. Inability to ambulate. PLAN: 1. Admit the patient to medical floor. We will follow up with 2. antibiotic = vanco, azithromycin and Rocephin. 3. Code status is Full Code. 4. DVT prophylaxis, heparin subcu. We 5. Dr. Underowod =Pulmonary/Critical Care 6. HIV test=neg 7. Discharge planning: alf facility Mamadou Panda MD May 07, 2020 17:09
--- NOTE | 2020-05-07 19:36 | NUR ---
HAND-OFF: Report given to Hanna SOLIS.
--- NOTE | 2020-05-07 19:45 | NUR ---
NURSE NOTES: PT IS AAOX4, VERBALLY RESPONSIVE AND ABLE TO MAKE NEEDS KNOWN. NO COMPLAINTS OF PAIN OR DISCOMFORT AT THIS TIME. BREATHING IS EVEN AND UNLABORED ON 2L VIA NC, NO S/SX OF DISTRESS NOTED. IV SITE ON RIGHT HAND AND LEAKING, NO LONGER PATENT WILL DISCONTINUE AND REINSERT NEW IV. FALL PRECAUTIONS IN PLACE. BED LOCKED AND IN LOWEST POSITION, SIDERAILS UP X 3. CALL LIGHT AND URINAL WITHIN REACH. WILL CONTINUE TO MONITOR FOR ANY CHANGES.
[2020-05-07 20:00] VITALS: BP 102/60
[2020-05-07] MEDS: TraZODone 50mg tab ORAL SCH (22:21)
[2020-05-08] VITALS (7 sets, daily range): BP systolic 88–106; BP diastolic 31–64
[2020-05-08 06:21] LABS: HEMATOCRIT 44.5 % (42.0-52.0); HEMOGLOBIN 14.7 G/DL (14.2-18.0); MEAN CORPUSCULAR VOLUME 94 FL (80-99); PLATELET COUNT 218 K/UL (150-450); RED BLOOD COUNT 4.71 M/UL (4.70-6.10); RED CELL DISTRIBUTION WIDTH 12.5 % (11.6-14.8); WHITE BLOOD COUNT 6.3 K/UL (4.8-10.8)
[2020-05-08 06:38] LABS: ANION GAP 4 mmol/L (5-15); BLOOD UREA NITROGEN 25 mg/dL (7-18); CALCIUM 9.7 MG/DL (8.5-10.1); CARBON DIOXIDE 32 MMOL/L (21-32); CHLORIDE 100 MMOL/L (98-107); CREATININE 0.8 MG/DL (0.55-1.30); POTASSIUM 4.5 MMOL/L (3.5-5.1); SODIUM 136 MMOL/L (136-145)
--- NOTE | 2020-05-08 07:03 | NUR ---
HAND-OFF: Report given to Kiley James RN .
--- NOTE | 2020-05-08 07:30 | NUR ---
NURSE NOTES: Received report from Hanna SOLIS. Pt in bed alert and awake, TV on. Bed locked and in lowest position, seizure precautions in place. Call light within reach. Whiteboard updated. No complaint of pain or signs distress at this time. Pt talkative.
--- NOTE | 2020-05-08 08:00 | NUR ---
NURSE NOTES: Pt bp 88/31. Left voicemail with Dr. Avitia and informed him of low BP and hemoglobin trending down. Midodrine 10mg given. Addendum: 05/08/20 at 1001 by Kiley Auguste RN Disregard, wrong patient.
[2020-05-08] MEDS: Heparin 5000 units/ml inj SUBQ SCH ×2 (08:48→21:19)
--- NOTE | 2020-05-08 12:30 | Internal Med Progress Note ---
Subjective Date of Service: May 08, 2020 Physician Name Mamadou Panda Attending Physician Vishal Tran MD Current Medications Medications (Trade) Dose Ordered Sig/Martha Route PRN Reason Start Time Stop Time Status Last Admin Dose Admin Acetaminophen (Tylenol) 650 mg Q4H PRN ORAL T>100.5 05/03/20 14:15 06/02/20 14:14 Albuterol Sulfate (Proventil MDI) 2 puff Q4H PRN INH Shortness of Breath 05/03/20 14:15 08/01/20 14:14 Dextrose (Dextrose 50%) 25 ml Q30M PRN IV Hypoglycemia 05/03/20 14:30 07/29/20 19:29 Dextrose (Dextrose 50%) 50 ml Q30M PRN IV Hypoglycemia 05/03/20 14:30 07/29/20 19:29 Heparin Sodium (Porcine) (Heparin 5000 units/ml) 5,000 units EVERY 12 HOURS SUBQ 05/03/20 21:00 06/14/20 20:59 05/08/20 08:48 Metoprolol Tartrate (Lopressor) 5 mg Q6H PRN IVP Tachycardia 05/03/20 14:15 08/01/20 14:14 Ondansetron HCl (Zofran) 4 mg Q6H PRN IVP Nausea & Vomiting 05/03/20 14:15 06/02/20 14:14 Polyethylene Glycol (Miralax) 17 gm DAILYPRN PRN ORAL Constipation 05/03/20 14:15 06/02/20 14:14 05/05/20 18:26 Promethazine HCl/ Codeine (Phenergan with Codeine) 5 ml Q6H PRN ORAL cough 05/03/20 14:16 06/02/20 14:15 05/04/20 22:30 Trazodone HCl (Desyrel) 50 mg BEDTIME ORAL 05/03/20 21:00 05/31/20 20:59 05/07/20 22:21 Allergies: Coded Allergies: FISH CONTAINING PRODUCTS (Verified Allergy, Unknown, 05/02/20) Per Patient ROS Limited/Unobtainable: No Constitutional: Reports: no symptoms HEENT: Reports: no symptoms Cardiovascular: Reports: no symptoms Respiratory: Reports: shortness of breath Gastrointestinal/Abdominal: Reports: no symptoms Genitourinary: Reports: no symptoms Neurologic/Psychiatric: Reports: no symptoms Subjective 64 YO M admitted with shortness of breath. Now COPD exacerbation. Cover for Int Juanpablo-Dr Tran Objective Last Vital Signs Date Time Temp Pulse Resp B/P (MAP) Pulse Ox O2 Delivery O2 Flow Rate FiO2 05/08/20 12:03 98.4 72 18 101/58 (72) 96 05/08/20 09:00 Nasal Cannula 2.0 04/30/20 14:30 98 Laboratory Tests Test 05/08/20 05:40 White Blood Count 6.3 K/UL (4.8-10.8) Red Blood Count 4.71 M/UL (4.70-6.10) Hemoglobin 14.7 G/DL (14.2-18.0) Hematocrit 44.5 % (42.0-52.0) Mean Corpuscular Volume 94 FL (80-99) Mean Corpuscular Hemoglobin 31.2 PG (27.0-31.0) H Mean Corpuscular Hemoglobin Concent 33.1 G/DL (32.0-36.0) Red Cell Distribution Width 12.5 % (11.6-14.8) Platelet Count 218 K/UL (150-450) Mean Platelet Volume 6.1 FL (6.5-10.1) L Neutrophils (%) (Auto) % (45.0-75.0) Lymphocytes (%) (Auto) % (20.0-45.0) Monocytes (%) (Auto) % (1.0-10.0) Eosinophils (%) (Auto) % (0.0-3.0) Basophils (%) (Auto) % (0.0-2.0) Sodium Level 136 MMOL/L (136-145) Potassium Level 4.5 MMOL/L (3.5-5.1) Chloride Level 100 MMOL/L (98-107) Carbon Dioxide Level 32 MMOL/L (21-32) Anion Gap 4 mmol/L (5-15) L Blood Urea Nitrogen 25 mg/dL (7-18) H Creatinine 0.8 MG/DL (0.55-1.30) Estimat Glomerular Filtration Rate > 60 mL/min (>60) Glucose Level 92 MG/DL (74-106) Calcium Level 9.7 MG/DL (8.5-10.1) Troponin I 0.002 ng/mL (0.000-0.056) Intake and Output 05/07/20 05/08/20 19:00 07:00 Intake Total 1440 ml Output Total 1400 ml Balance 40 ml Intake Oral 1440 ml Output Urine Total 1400 ml # Voids 4 3 Objective PHYSICAL EXAMINATION: GENERAL: The patient is awake, responsive, in no acute distress, chronically ill-appearing. HEAD AND NECK: Pupils are equal and reactive to light. Extraocular movements intact. Neck was supple. No JVD. LUNGS: Good air entry. No wheezing or rales. HEART: S1, S2. Regular rhythm. No murmur or gallops. ABDOMEN: Soft, nondistended, nontender. Positive bowel sounds. EXTREMITIES: No cyanosis, clubbing, or edema. NEUROLOGIC: Cranial nerves II through XII grossly intact. Motor is 5/5 in all extremities. Gait was not assessed due to the patient's status. RECTAL: Refused and deferred. GENITOURINARY: Refused and deferred. PSYCHIATRIC: Mood and affect is intact. Assessment/Plan Assessment/Plan ASSESSMENT: 1. Shortness of breath, most likely secondary to the acute COPD exacerbation. 2. COVID-19 = Negative. 3. Chronic smoker with emphysematous lung. 4. Severe protein-calorie malnutrition. 5. Inability to ambulate. PLAN: 1. Admit the patient to medical floor. We will follow up with 2. antibiotic = vanco, azithromycin and Rocephin. 3. Code status is Full Code. 4. DVT prophylaxis, heparin subcu. We 5. Dr. Underwood =Pulmonary/Critical Care 6. HIV test=neg 7. Discharge planning: senior living facility Mamadou Panda MD May 08, 2020 12:30
[2020-05-08] MEDS ORDERED: ASPIR 8181 MG ORAL (13:14)
[2020-05-08] MEDS ORDERED: BUDESONIDE-FO10.2 G1 IH (13:14)
--- NOTE | 2020-05-08 13:20 | Pulmonology Progress Note ---
Subjective ROS Limited/Unobtainable: No Interval Events: still coughing, no sputum yet, still BUTLER Constitutional: Reports: no symptoms HEENT: Repors: no symptoms Respiratory: Reports: no symptoms Allergies: Coded Allergies: FISH CONTAINING PRODUCTS (Verified Allergy, Unknown, 05/02/20) Per Patient Objective Last 24 Hour Vital Signs Date Time Temp Pulse Resp B/P (MAP) Pulse Ox O2 Delivery O2 Flow Rate FiO2 05/08/20 12:03 98.4 72 18 101/58 (72) 96 05/08/20 12:00 92 05/08/20 09:00 Nasal Cannula 2.0 05/08/20 08:01 97.7 75 18 106/60 (75) 99 05/08/20 08:00 () 05/08/20 08:00 92 05/08/20 04:00 84 05/08/20 04:00 97.1 77 18 101/62 (75) 97 05/08/20 00:00 97.9 83 19 96/55 (69) 97 05/08/20 00:00 80 05/07/20 21:00 Nasal Cannula 2.0 05/07/20 20:00 86 05/07/20 20:00 98.1 84 18 102/60 (74) 97 05/07/20 16:00 91 05/07/20 16:00 98.4 89 20 136/64 (88) 97 Intake and Output 05/07/20 05/08/20 19:00 07:00 Intake Total 1440 ml Output Total 1400 ml Balance 40 ml Intake Oral 1440 ml Output Urine Total 1400 ml # Voids 4 3 General Appearance: cachetic HEENT: normocephalic, atraumatic Respiratory: chest wall non-tender, rhonchi - left, rhonchi - right Cardiovascular: normal peripheral pulses, regular rhythm Abdomen: normal bowel sounds, soft, non tender Genitourinary: normal external genitalia Extremities: no clubbing Skin: no lesions Laboratory Tests 05/08/20 05:40: White Blood Count 6.3, Red Blood Count 4.71, Hemoglobin 14.7, Hematocrit 44.5, Mean Corpuscular Volume 94, Mean Corpuscular Hemoglobin 31.2H, Mean Corpuscular Hemoglobin Concent 33.1, Red Cell Distribution Width 12.5, Platelet Count 218, Mean Platelet Volume 6.1L, Neutrophils (%) (Auto) , Lymphocytes (%) (Auto) , Monocytes (%) (Auto) , Eosinophils (%) (Auto) , Basophils (%) (Auto) , Sodium Level 136, Potassium Level 4.5, Chloride Level 100, Carbon Dioxide Level 32, Anion Gap 4L, Blood Urea Nitrogen 25H, Creatinine 0.8, Estimat Glomerular Filtration Rate > 60, Glucose Level 92, Calcium Level 9.7, Troponin I 0.002 Current Medications Medications (Trade) Dose Ordered Sig/Martha Route PRN Reason Start Time Stop Time Status Last Admin Dose Admin Acetaminophen (Tylenol) 650 mg Q4H PRN ORAL T>100.5 05/03/20 14:15 06/02/20 14:14 Albuterol Sulfate (Proventil MDI) 2 puff Q4H PRN INH Shortness of Breath 05/03/20 14:15 08/01/20 14:14 Dextrose (Dextrose 50%) 25 ml Q30M PRN IV Hypoglycemia 05/03/20 14:30 07/29/20 19:29 Dextrose (Dextrose 50%) 50 ml Q30M PRN IV Hypoglycemia 05/03/20 14:30 07/29/20 19:29 Heparin Sodium (Porcine) (Heparin 5000 units/ml) 5,000 units EVERY 12 HOURS SUBQ 05/03/20 21:00 06/14/20 20:59 05/08/20 08:48 Metoprolol Tartrate (Lopressor) 5 mg Q6H PRN IVP Tachycardia 05/03/20 14:15 08/01/20 14:14 Ondansetron HCl (Zofran) 4 mg Q6H PRN IVP Nausea & Vomiting 05/03/20 14:15 06/02/20 14:14 Polyethylene Glycol (Miralax) 17 gm DAILYPRN PRN ORAL Constipation 05/03/20 14:15 06/02/20 14:14 05/05/20 18:26 Promethazine HCl/ Codeine (Phenergan with Codeine) 5 ml Q6H PRN ORAL cough 05/03/20 14:16 06/02/20 14:15 05/04/20 22:30 Trazodone HCl (Desyrel) 50 mg BEDTIME ORAL 05/03/20 21:00 05/31/20 20:59 05/07/20 22:21 Assessment/Plan Problems: (1) COPD exacerbation (2) Supraventricular tachycardia (3) Severe protein-calorie malnutrition (4) Emphysema of lung (5) Suspected COVID-19 virus infection Assessment & Plan: COVID negative times two Assessment/Plan dc planning COVID negative times 2 COVID PCR pending respiratory treatment taper steroids off iv fouids and IV abx titrate fio2 antitussives f/u ID recommendations. cardiology recommendations appreciated Leighann Underwood MD May 08, 2020 13:20
--- NOTE | 2020-05-08 13:40 | NUR ---
CASE MANAGEMENT:REVIEW SI;COPD EXACERBATION. SVT. 98.4 84 18 101/58 96% 2L NC BUN 25 IS;HEPARIN SUBQ Q12 PROVENTIL ING Q4 PRN LOPRESSOR IV Q6 PRN TELE STATUS DCP;FROM BOARD AND CARE DISCHARGE PLANNING IN PLACE
--- NOTE | 2020-05-08 13:51 | NUR ---
NURSE NOTES: Contacted Erika (medical records) at [facility]. She faxed over patients meds from last month he was there (January 2020). Per Dr. Raymond, enter all meds and he will review and confirm which to keep.
--- NOTE | 2020-05-08 13:57 | NUR ---
INSURANCE UPDATED CLINICALS AND REVIEWS HAVE BEEN FAXED TO [facility] P: [phone] F: [phone]
--- NOTE | 2020-05-08 14:07 | Infectious Diseases Prog Note ---
Assessment/Plan Assessment: COPD exacerbation-COVID 19 neg x2 -05/06 CXR: No acute process. COPD changes -05/03 SARS-COV2 PCR neg -05/01 Sp cx normal resp gary -04/30 CXR: No acute process SARS-COV2 PCR neg Afebrile NO leukocytosis CONS/Diphteroids bacteremia- likely contaminant -04/30 Bcx 1/4 diphteroids, 1/4 CONS; 05/02 Bcx Neg COPD/emphysema tobacco abuse ETOH abuse ?treated TB Plan: -Continue to monitor off abx -05/04 SP Ceftriaxone and Azithromycin #5/5, IV Vancomycin #3 -f/u cx -Monitor CBC/CMP, temperatures -COVID19 neg x2; ok to dc iso Thank you for consulting [facility]. Will continue to follow along with you. Alex toth RN. Subjective Allergies: Coded Allergies: FISH CONTAINING PRODUCTS (Verified Allergy, Unknown, 05/02/20) Per Patient afebrile at 2l nC cough improved Objective Last 24 Hour Vital Signs Date Time Temp Pulse Resp B/P (MAP) Pulse Ox O2 Delivery O2 Flow Rate FiO2 05/08/20 12:03 98.4 72 18 101/58 (72) 96 05/08/20 12:00 92 05/08/20 09:00 Nasal Cannula 2.0 05/08/20 08:01 97.7 75 18 106/60 (75) 99 05/08/20 08:00 () 05/08/20 08:00 92 05/08/20 04:00 84 05/08/20 04:00 97.1 77 18 101/62 (75) 97 05/08/20 00:00 97.9 83 19 96/55 (69) 97 05/08/20 00:00 80 05/07/20 21:00 Nasal Cannula 2.0 05/07/20 20:00 86 05/07/20 20:00 98.1 84 18 102/60 (74) 97 05/07/20 16:00 91 05/07/20 16:00 98.4 89 20 136/64 (88) 97 Height (Feet): 6 Height (Inches): 1.00 Weight (Pounds): 135 GENERAL: The patient is awake, responsive, in no acute distress, chronically ill-appearing. LUNGS: Good air entry. No wheezing or rales. HEART: S1, S2. Regular rhythm. No murmur or gallops. ABDOMEN: Soft, nondistended, nontender. Positive bowel sounds. EXTREMITIES: No cyanosis, clubbing, or edema. Laboratory Tests Test 05/08/20 05:40 White Blood Count 6.3 K/UL (4.8-10.8) Red Blood Count 4.71 M/UL (4.70-6.10) Hemoglobin 14.7 G/DL (14.2-18.0) Hematocrit 44.5 % (42.0-52.0) Mean Corpuscular Volume 94 FL (80-99) Mean Corpuscular Hemoglobin 31.2 PG (27.0-31.0) H Mean Corpuscular Hemoglobin Concent 33.1 G/DL (32.0-36.0) Red Cell Distribution Width 12.5 % (11.6-14.8) Platelet Count 218 K/UL (150-450) Mean Platelet Volume 6.1 FL (6.5-10.1) L Neutrophils (%) (Auto) % (45.0-75.0) Lymphocytes (%) (Auto) % (20.0-45.0) Monocytes (%) (Auto) % (1.0-10.0) Eosinophils (%) (Auto) % (0.0-3.0) Basophils (%) (Auto) % (0.0-2.0) Sodium Level 136 MMOL/L (136-145) Potassium Level 4.5 MMOL/L (3.5-5.1) Chloride Level 100 MMOL/L (98-107) Carbon Dioxide Level 32 MMOL/L (21-32) Anion Gap 4 mmol/L (5-15) L Blood Urea Nitrogen 25 mg/dL (7-18) H Creatinine 0.8 MG/DL (0.55-1.30) Estimat Glomerular Filtration Rate > 60 mL/min (>60) Glucose Level 92 MG/DL (74-106) Calcium Level 9.7 MG/DL (8.5-10.1) Troponin I 0.002 ng/mL (0.000-0.056) Current Medications Medications (Trade) Dose Ordered Sig/Martha Route PRN Reason Start Time Stop Time Status Last Admin Dose Admin Acetaminophen (Tylenol) 650 mg Q4H PRN ORAL T>100.5 05/03/20 14:15 06/02/20 14:14 Albuterol Sulfate (Proventil MDI) 2 puff Q4H PRN INH Shortness of Breath 05/03/20 14:15 08/01/20 14:14 Dextrose (Dextrose 50%) 25 ml Q30M PRN IV Hypoglycemia 05/03/20 14:30 07/29/20 19:29 Dextrose (Dextrose 50%) 50 ml Q30M PRN IV Hypoglycemia 05/03/20 14:30 07/29/20 19:29 Heparin Sodium (Porcine) (Heparin 5000 units/ml) 5,000 units EVERY 12 HOURS SUBQ 05/03/20 21:00 06/14/20 20:59 05/08/20 08:48 Metoprolol Tartrate (Lopressor) 5 mg Q6H PRN IVP Tachycardia 05/03/20 14:15 08/01/20 14:14 Ondansetron HCl (Zofran) 4 mg Q6H PRN IVP Nausea & Vomiting 05/03/20 14:15 06/02/20 14:14 Polyethylene Glycol (Miralax) 17 gm DAILYPRN PRN ORAL Constipation 05/03/20 14:15 06/02/20 14:14 05/05/20 18:26 Promethazine HCl/ Codeine (Phenergan with Codeine) 5 ml Q6H PRN ORAL cough 05/03/20 14:16 06/02/20 14:15 05/04/20 22:30 Trazodone HCl (Desyrel) 50 mg BEDTIME ORAL 05/03/20 21:00 05/31/20 20:59 05/07/20 22:21 Alexsandra Potts M.D. May 08, 2020 14:07
--- NOTE | 2020-05-08 16:20 | NUR ---
NURSE NOTES:Pt presented on admission with Incontinence Associated Dermatitis Buttocks and bilat ischium. Skin is erythematous with scattered satellite lesions. Primary Nurse reported noting pt scratching his skin inflicting further skin damage. Pt admitted to scratching skin. Moisture Barrier Paste applied to entire buttocks. Sacral area covered with Optifoam drsg. Both heels are blanchable. Pt able to reposition self in bed and has been educated on wound prevention. Encouraged to frequently reposition while in bed but to avoid sliding against bed-linens. Pt also encouraged to off-load heels with pillow while in bed. Tx.Plan: Apply Triad Moisture Barrier Paste to buttocks with each Perineal Care. Cover Sacrum with Optifoam drsg. Change every 3 days and prn. Reposition at least every 2hours or as tolerated. Off-load heels with pillow
--- NOTE | 2020-05-08 16:54 | NUR ---
SOFTWARE TESTER NOTE S/W PATIENT AT BEDSIDE. PATIENT ADAMANTLY REFUSED SNF PLACEMENT. REQUESTS TO RETURN TO HIS [facility] DC. Addendum: 05/08/20 at 1746 by ALBER DIEZ LVN LVN CALL MADE TO MORIAH [phone] IN RE TO PATIENT BEING ABLE TO RETURN TO [facility] NO ANSWER AT TIME OF CALL. FOLLOW UP WITH MORIAH NEEDED FOR DC BACK TO [facility]. CALL MADE TO PATIENTS SISTER PAO @ [phone] WITH NO ANSWER
[2020-05-08] MEDS ORDERED: FUROSEMIDE20 M1 ORAL (17:44)
[2020-05-08] MEDS ORDERED: LEVOTHYROXINE75 MCG ORAL (17:50)
[2020-05-08] MEDS ORDERED: FLONASE ALLERG9.9 ML NS (17:50)
[2020-05-08] MEDS ORDERED: MELATONIN3 MG ORAL (17:50)
[2020-05-08] MEDS ORDERED: MULTIVITAMINS1 EAC8 ORAL (17:50)
[2020-05-08] MEDS ORDERED: XARELTO10 MG ORAL (18:00)
[2020-05-08] MEDS ORDERED: SINGULAIR10 MG ORAL (18:00)
[2020-05-08] MEDS ORDERED: DILANTIN100 MG ORAL ×3 (18:00)
[2020-05-08] MEDS ORDERED: SPIRIVA18 MCG INH (18:18)
[2020-05-08] MEDS ORDERED: MIRALAX17 G2 ORAL (18:18)
--- NOTE | 2020-05-08 18:38 | Cardiology Progress Note ---
Assessment/Plan Assessment/Plan 1. Supraventricular tachycardia. 2. COPD with exacerbation. 3. Cough, sputum production, pending COVID. 4. Bacteremia, probable contamination. 5. History of tuberculosis, status post treatment. 6. Hypotension post episode of tachycardi st depression in multiple leads due to demand mismatch at time of severe tachy trop abn due to demand as profoundly tachy durign svt which may have been going on for whiel with hr up to 201 per reprot repeat ekg st changes resolved echo poor visualization tele persoanlly reviwed sinus no svt no vt Subjective Cardiovascular: Denies: chest pain, lightheadedness, palpitations Respiratory: Denies: cough, shortness of breath Gastrointestinal/Abdominal: Denies: abdominal pain Genitourinary: Denies: burning Objective Last 24 Hour Vital Signs Date Time Temp Pulse Resp B/P (MAP) Pulse Ox O2 Delivery O2 Flow Rate FiO2 05/08/20 16:00 98.2 67 20 96/54 (68) 99 05/08/20 16:00 94 05/08/20 12:03 98.4 72 18 101/58 (72) 96 05/08/20 12:00 92 05/08/20 09:00 Nasal Cannula 2.0 05/08/20 08:01 97.7 75 18 106/60 (75) 99 05/08/20 08:00 () 05/08/20 08:00 92 05/08/20 04:00 84 05/08/20 04:00 97.1 77 18 101/62 (75) 97 05/08/20 00:00 97.9 83 19 96/55 (69) 97 05/08/20 00:00 80 05/07/20 21:00 Nasal Cannula 2.0 05/07/20 20:00 86 05/07/20 20:00 98.1 84 18 102/60 (74) 97 General Appearance: no apparent distress, alert, patient on isolation Intake and Output 05/07/20 05/08/20 19:00 07:00 Intake Total 1440 ml Output Total 1400 ml Balance 40 ml Intake Oral 1440 ml Output Urine Total 1400 ml # Voids 4 3 Laboratory Tests Test 05/08/20 05:40 White Blood Count 6.3 K/UL (4.8-10.8) Red Blood Count 4.71 M/UL (4.70-6.10) Hemoglobin 14.7 G/DL (14.2-18.0) Hematocrit 44.5 % (42.0-52.0) Mean Corpuscular Volume 94 FL (80-99) Mean Corpuscular Hemoglobin 31.2 PG (27.0-31.0) H Mean Corpuscular Hemoglobin Concent 33.1 G/DL (32.0-36.0) Red Cell Distribution Width 12.5 % (11.6-14.8) Platelet Count 218 K/UL (150-450) Mean Platelet Volume 6.1 FL (6.5-10.1) L Neutrophils (%) (Auto) % (45.0-75.0) Lymphocytes (%) (Auto) % (20.0-45.0) Monocytes (%) (Auto) % (1.0-10.0) Eosinophils (%) (Auto) % (0.0-3.0) Basophils (%) (Auto) % (0.0-2.0) Sodium Level 136 MMOL/L (136-145) Potassium Level 4.5 MMOL/L (3.5-5.1) Chloride Level 100 MMOL/L (98-107) Carbon Dioxide Level 32 MMOL/L (21-32) Anion Gap 4 mmol/L (5-15) L Blood Urea Nitrogen 25 mg/dL (7-18) H Creatinine 0.8 MG/DL (0.55-1.30) Estimat Glomerular Filtration Rate > 60 mL/min (>60) Glucose Level 92 MG/DL (74-106) Calcium Level 9.7 MG/DL (8.5-10.1) Troponin I 0.002 ng/mL (0.000-0.056) Saad Presley MD May 08, 2020 18:38
--- NOTE | 2020-05-08 19:30 | NUR ---
NURSES NOTES: Received report from IRMA James. Pt. awake, A/O x4, able to make needs known. On O2 via NC at 2L/min sating at 95%, no resp distress noted. Continue on cardiac monitoring. IV 20G in place & patent on right forearm. Seizure precautions in place. No complain of any pain at this time. Bed in low position, side rails up x3, bed in low position, call light with in reach.
--- NOTE | 2020-05-08 19:31 | NUR ---
HAND-OFF: Report given to Cherise Kwok RN. Patient stable. Plan of care endorsed.
--- NOTE | 2020-05-08 21:00 | NUR ---
NURSE NOTES: Noticed sacral redness that may be a DTI, need wound care consult, initial wound care protocol was input previously. Pictures were uploaded. Cavilon and optifoam applied throughout sacral area and spine, bony prominences, Pt refused application of triad cream, says it "itches." Pt observed scratching his skin on multiple occasions - he said he "cant help it." Will continue to monitor and educate pt on not scratching the skin as it will open up. Educated and turned pt, says he repositions self, but went in there to help him reposition.
[2020-05-08] MEDS: TraZODone 50mg tab ORAL SCH (21:17)
[2020-05-09] VITALS: BP 100/61
[2020-05-09 04:00] VITALS: BP 100/62
[2020-05-09 06:59] LABS: HEMATOCRIT 44.8 % (42.0-52.0); HEMOGLOBIN 14.8 G/DL (14.2-18.0); MEAN CORPUSCULAR VOLUME 94 FL (80-99); PLATELET COUNT 224 K/UL (150-450); RED BLOOD COUNT 4.76 M/UL (4.70-6.10); RED CELL DISTRIBUTION WIDTH 12.6 % (11.6-14.8); WHITE BLOOD COUNT 5.8 K/UL (4.8-10.8)
--- NOTE | 2020-05-09 07:11 | NUR ---
HAND-OFF: Report given to IRMA Parker.
[2020-05-09 07:18] LABS: ANION GAP 6 mmol/L (5-15); BLOOD UREA NITROGEN 27 mg/dL (7-18); CALCIUM 9.3 MG/DL (8.5-10.1); CARBON DIOXIDE 30 MMOL/L (21-32); CHLORIDE 101 MMOL/L (98-107); CREATININE 0.8 MG/DL (0.55-1.30); POTASSIUM 4.1 MMOL/L (3.5-5.1); SODIUM 137 MMOL/L (136-145)
--- NOTE | 2020-05-09 07:30 | NUR ---
NURSE NOTES: Received report from IRMA Puente. Pt. LOS x4, denies pain. No acute distress. Breathing regular and unlabored. R FA 20 g IV intact, patent, and flushed. Bed low and locked, call light in reach, side rails x2 raised, fall education provided.
[2020-05-09 08:00] VITALS: BP 105/61
[2020-05-09] MEDS: Heparin 5000 units/ml inj SUBQ SCH ×2 (09:33→21:04)
--- NOTE | 2020-05-09 09:47 | NUR ---
NURSE NOTES: Pt. refused turning despite education/redirection. Pt. states he turns himself Q2H in bed.
[2020-05-09 12:00] VITALS: BP 110/64
--- NOTE | 2020-05-09 12:49 | Internal Med Progress Note ---
Subjective Date of Service: May 09, 2020 Physician Name Mamadou Panda Attending Physician Vishal Tran MD Current Medications Medications (Trade) Dose Ordered Sig/Martha Route PRN Reason Start Time Stop Time Status Last Admin Dose Admin Acetaminophen (Tylenol) 650 mg Q4H PRN ORAL T>100.5 05/03/20 14:15 06/02/20 14:14 Albuterol Sulfate (Proventil MDI) 2 puff Q4H PRN INH Shortness of Breath 05/03/20 14:15 08/01/20 14:14 Dextrose (Dextrose 50%) 25 ml Q30M PRN IV Hypoglycemia 05/03/20 14:30 07/29/20 19:29 Dextrose (Dextrose 50%) 50 ml Q30M PRN IV Hypoglycemia 05/03/20 14:30 07/29/20 19:29 Heparin Sodium (Porcine) (Heparin 5000 units/ml) 5,000 units EVERY 12 HOURS SUBQ 05/03/20 21:00 06/14/20 20:59 05/09/20 09:33 Metoprolol Tartrate (Lopressor) 5 mg Q6H PRN IVP Tachycardia 05/03/20 14:15 08/01/20 14:14 Ondansetron HCl (Zofran) 4 mg Q6H PRN IVP Nausea & Vomiting 05/03/20 14:15 06/02/20 14:14 Polyethylene Glycol (Miralax) 17 gm DAILYPRN PRN ORAL Constipation 05/03/20 14:15 06/02/20 14:14 05/05/20 18:26 Promethazine HCl/ Codeine (Phenergan with Codeine) 5 ml Q6H PRN ORAL cough 05/03/20 14:16 06/02/20 14:15 05/04/20 22:30 Trazodone HCl (Desyrel) 50 mg BEDTIME ORAL 05/03/20 21:00 05/31/20 20:59 05/08/20 21:17 Allergies: Coded Allergies: FISH CONTAINING PRODUCTS (Verified Allergy, Unknown, 05/02/20) Per Patient ROS Limited/Unobtainable: No Constitutional: Reports: no symptoms HEENT: Reports: no symptoms Cardiovascular: Reports: no symptoms Respiratory: Reports: no symptoms Gastrointestinal/Abdominal: Reports: no symptoms Genitourinary: Reports: no symptoms Neurologic/Psychiatric: Reports: no symptoms Subjective 64 YO M admitted with shortness of breath. Now COPD exacerbation. Cover for Int Juanpablo-Dr Tran Objective Last Vital Signs Date Time Temp Pulse Resp B/P (MAP) Pulse Ox O2 Delivery O2 Flow Rate FiO2 05/09/20 12:00 89 05/09/20 12:00 98.1 18 110/64 (79) 96 05/09/20 09:00 Nasal Cannula 2.0 04/30/20 14:30 98 Laboratory Tests Test 05/09/20 04:30 White Blood Count 5.8 K/UL (4.8-10.8) Red Blood Count 4.76 M/UL (4.70-6.10) Hemoglobin 14.8 G/DL (14.2-18.0) Hematocrit 44.8 % (42.0-52.0) Mean Corpuscular Volume 94 FL (80-99) Mean Corpuscular Hemoglobin 31.1 PG (27.0-31.0) H Mean Corpuscular Hemoglobin Concent 33.0 G/DL (32.0-36.0) Red Cell Distribution Width 12.6 % (11.6-14.8) Platelet Count 224 K/UL (150-450) Mean Platelet Volume 5.7 FL (6.5-10.1) L Neutrophils (%) (Auto) % (45.0-75.0) Lymphocytes (%) (Auto) % (20.0-45.0) Monocytes (%) (Auto) % (1.0-10.0) Eosinophils (%) (Auto) % (0.0-3.0) Basophils (%) (Auto) % (0.0-2.0) Differential Total Cells Counted 100 Neutrophils % (Manual) 45 % (45-75) Lymphocytes % (Manual) 27 % (20-45) Monocytes % (Manual) 21 % (1-10) H Eosinophils % (Manual) 7 % (0-3) H Basophils % (Manual) 0 % (0-2) Band Neutrophils 0 % (0-8) Platelet Estimate Adequate Platelet Morphology Normal Red Blood Cell Morphology Normal Sodium Level 137 MMOL/L (136-145) Potassium Level 4.1 MMOL/L (3.5-5.1) Chloride Level 101 MMOL/L (98-107) Carbon Dioxide Level 30 MMOL/L (21-32) Anion Gap 6 mmol/L (5-15) Blood Urea Nitrogen 27 mg/dL (7-18) H Creatinine 0.8 MG/DL (0.55-1.30) Estimat Glomerular Filtration Rate > 60 mL/min (>60) Glucose Level 90 MG/DL (74-106) Calcium Level 9.3 MG/DL (8.5-10.1) Intake and Output 05/08/20 05/09/20 19:00 07:00 Intake Total 1330 ml 350 ml Output Total 2150 ml 400 ml Balance -820 ml -50 ml Intake Oral 1330 ml 350 ml Output Urine Total 2150 ml 400 ml # Voids 3 # Bowel Movements 1 Objective PHYSICAL EXAMINATION: GENERAL: The patient is awake, responsive, in no acute distress, chronically ill-appearing. HEAD AND NECK: Pupils are equal and reactive to light. Extraocular movements intact. Neck was supple. No JVD. LUNGS: Good air entry. No wheezing or rales. HEART: S1, S2. Regular rhythm. No murmur or gallops. ABDOMEN: Soft, nondistended, nontender. Positive bowel sounds. EXTREMITIES: No cyanosis, clubbing, or edema. NEUROLOGIC: Cranial nerves II through XII grossly intact. Motor is 5/5 in all extremities. Gait was not assessed due to the patient's status. RECTAL: Refused and deferred. GENITOURINARY: Refused and deferred. PSYCHIATRIC: Mood and affect is intact. Assessment/Plan Assessment/Plan ASSESSMENT: 1. Shortness of breath, most likely secondary to the acute COPD exacerbation. 2. COVID-19 = Negative. 3. Chronic smoker with emphysematous lung. 4. Severe protein-calorie malnutrition. 5. Inability to ambulate. PLAN: 1. Admit the patient to medical floor. We will follow up with 2. antibiotic = vanco, azithromycin and Rocephin. 3. Code status is Full Code. 4. DVT prophylaxis, heparin subcu. We 5. Dr. Underwood =Pulmonary/Critical Care 6. HIV test=neg 7. Discharge planning: Return to [facility] Mamadou Panda MD May 09, 2020 12:48
[2020-05-09 15:30] VITALS: BP 104/63
--- NOTE | 2020-05-09 17:15 | Cardiology Progress Note ---
Assessment/Plan Assessment/Plan stable, no SVT, in sinus rhythm Subjective Subjective the patient is resting in his bed, he reports that has moderate dyspnea, no palpitations Objective Last 24 Hour Vital Signs Date Time Temp Pulse Resp B/P (MAP) Pulse Ox O2 Delivery O2 Flow Rate FiO2 05/09/20 16:00 90 05/09/20 15:30 97.7 88 20 104/63 (77) 95 05/09/20 12:00 89 05/09/20 12:00 98.1 88 18 110/64 (79) 96 05/09/20 09:00 Nasal Cannula 2.0 05/09/20 08:00 89 05/09/20 08:00 98.4 89 20 105/61 (76) 95 05/09/20 04:00 84 05/09/20 04:00 97.7 79 20 100/62 (75) 98 05/09/20 00:00 86 05/09/20 00:00 98.2 87 20 100/61 (74) 100 05/08/20 21:00 Nasal Cannula 2.0 05/08/20 20:00 98.1 95 20 104/64 (77) 99 05/08/20 20:00 97 General Appearance: no apparent distress EENT: PERRL/EOMI Neck: no JVD Rhythm: NSR Cardiovascular: regular rhythm Respiratory/Chest: expiratory wheezing Abdomen: soft Extremities: normal range of motion Intake and Output 05/08/20 05/09/20 19:00 07:00 Intake Total 1330 ml 350 ml Output Total 2150 ml 400 ml Balance -820 ml -50 ml Intake Oral 1330 ml 350 ml Output Urine Total 2150 ml 400 ml # Voids 3 # Bowel Movements 1 Laboratory Tests Test 05/09/20 04:30 White Blood Count 5.8 K/UL (4.8-10.8) Red Blood Count 4.76 M/UL (4.70-6.10) Hemoglobin 14.8 G/DL (14.2-18.0) Hematocrit 44.8 % (42.0-52.0) Mean Corpuscular Volume 94 FL (80-99) Mean Corpuscular Hemoglobin 31.1 PG (27.0-31.0) H Mean Corpuscular Hemoglobin Concent 33.0 G/DL (32.0-36.0) Red Cell Distribution Width 12.6 % (11.6-14.8) Platelet Count 224 K/UL (150-450) Mean Platelet Volume 5.7 FL (6.5-10.1) L Neutrophils (%) (Auto) % (45.0-75.0) Lymphocytes (%) (Auto) % (20.0-45.0) Monocytes (%) (Auto) % (1.0-10.0) Eosinophils (%) (Auto) % (0.0-3.0) Basophils (%) (Auto) % (0.0-2.0) Differential Total Cells Counted 100 Neutrophils % (Manual) 45 % (45-75) Lymphocytes % (Manual) 27 % (20-45) Monocytes % (Manual) 21 % (1-10) H Eosinophils % (Manual) 7 % (0-3) H Basophils % (Manual) 0 % (0-2) Band Neutrophils 0 % (0-8) Platelet Estimate Adequate Platelet Morphology Normal Red Blood Cell Morphology Normal Sodium Level 137 MMOL/L (136-145) Potassium Level 4.1 MMOL/L (3.5-5.1) Chloride Level 101 MMOL/L (98-107) Carbon Dioxide Level 30 MMOL/L (21-32) Anion Gap 6 mmol/L (5-15) Blood Urea Nitrogen 27 mg/dL (7-18) H Creatinine 0.8 MG/DL (0.55-1.30) Estimat Glomerular Filtration Rate > 60 mL/min (>60) Glucose Level 90 MG/DL (74-106) Calcium Level 9.3 MG/DL (8.5-10.1) Delphine Ibarra MD May 09, 2020 17:15
--- NOTE | 2020-05-09 17:48 | NUR ---
NURSE NOTES: Pt. refused linen change.
--- NOTE | 2020-05-09 18:46 | Infectious Diseases Prog Note ---
Assessment/Plan Assessment: COPD exacerbation-COVID 19 neg x2 -05/06 CXR: No acute process. COPD changes -05/03 SARS-COV2 PCR neg -05/01 Sp cx normal resp gary -04/30 CXR: No acute process SARS-COV2 PCR neg HIV : neg Afebrile NO leukocytosis CONS/Diphteroids bacteremia- likely contaminant -04/30 Bcx 1/4 diphteroids, 1/4 CONS; 05/02 Bcx Neg COPD/emphysema tobacco abuse ETOH abuse ?treated TB Plan: -Continue to monitor off abx -05/04 SP Ceftriaxone and Azithromycin #5/5, IV Vancomycin #3 -f/u cx -Monitor CBC/CMP, temperatures -COVID19 neg x2; ok to dc iso Thank you for consulting [facility]. Will continue to follow along with you. Alex toth RN. Subjective Constitutional: Denies: no symptoms, fever, chills, fatigue, anorexia, drenching sweats, other Allergies: Coded Allergies: FISH CONTAINING PRODUCTS (Verified Allergy, Unknown, 05/02/20) Per Patient Objective Last 24 Hour Vital Signs Date Time Temp Pulse Resp B/P (MAP) Pulse Ox O2 Delivery O2 Flow Rate FiO2 05/09/20 16:00 90 05/09/20 15:30 97.7 88 20 104/63 (77) 95 05/09/20 12:00 89 05/09/20 12:00 98.1 88 18 110/64 (79) 96 05/09/20 09:00 Nasal Cannula 2.0 05/09/20 08:00 89 05/09/20 08:00 98.4 89 20 105/61 (76) 95 05/09/20 04:00 84 05/09/20 04:00 97.7 79 20 100/62 (75) 98 05/09/20 00:00 86 05/09/20 00:00 98.2 87 20 100/61 (74) 100 05/08/20 21:00 Nasal Cannula 2.0 05/08/20 20:00 98.1 95 20 104/64 (77) 99 05/08/20 20:00 97 Height (Feet): 6 Height (Inches): 1.00 Weight (Pounds): 135 HEENT: atraumatic Respiratory/Chest: lungs clear Cardiovascular: normal rate Laboratory Tests Test 05/09/20 04:30 White Blood Count 5.8 K/UL (4.8-10.8) Red Blood Count 4.76 M/UL (4.70-6.10) Hemoglobin 14.8 G/DL (14.2-18.0) Hematocrit 44.8 % (42.0-52.0) Mean Corpuscular Volume 94 FL (80-99) Mean Corpuscular Hemoglobin 31.1 PG (27.0-31.0) H Mean Corpuscular Hemoglobin Concent 33.0 G/DL (32.0-36.0) Red Cell Distribution Width 12.6 % (11.6-14.8) Platelet Count 224 K/UL (150-450) Mean Platelet Volume 5.7 FL (6.5-10.1) L Neutrophils (%) (Auto) % (45.0-75.0) Lymphocytes (%) (Auto) % (20.0-45.0) Monocytes (%) (Auto) % (1.0-10.0) Eosinophils (%) (Auto) % (0.0-3.0) Basophils (%) (Auto) % (0.0-2.0) Differential Total Cells Counted 100 Neutrophils % (Manual) 45 % (45-75) Lymphocytes % (Manual) 27 % (20-45) Monocytes % (Manual) 21 % (1-10) H Eosinophils % (Manual) 7 % (0-3) H Basophils % (Manual) 0 % (0-2) Band Neutrophils 0 % (0-8) Platelet Estimate Adequate Platelet Morphology Normal Red Blood Cell Morphology Normal Sodium Level 137 MMOL/L (136-145) Potassium Level 4.1 MMOL/L (3.5-5.1) Chloride Level 101 MMOL/L (98-107) Carbon Dioxide Level 30 MMOL/L (21-32) Anion Gap 6 mmol/L (5-15) Blood Urea Nitrogen 27 mg/dL (7-18) H Creatinine 0.8 MG/DL (0.55-1.30) Estimat Glomerular Filtration Rate > 60 mL/min (>60) Glucose Level 90 MG/DL (74-106) Calcium Level 9.3 MG/DL (8.5-10.1) Current Medications Medications (Trade) Dose Ordered Sig/Martha Route PRN Reason Start Time Stop Time Status Last Admin Dose Admin Acetaminophen (Tylenol) 650 mg Q4H PRN ORAL T>100.5 05/03/20 14:15 06/02/20 14:14 Albuterol Sulfate (Proventil MDI) 2 puff Q4H PRN INH Shortness of Breath 05/03/20 14:15 08/01/20 14:14 Dextrose (Dextrose 50%) 25 ml Q30M PRN IV Hypoglycemia 05/03/20 14:30 07/29/20 19:29 Dextrose (Dextrose 50%) 50 ml Q30M PRN IV Hypoglycemia 05/03/20 14:30 07/29/20 19:29 Heparin Sodium (Porcine) (Heparin 5000 units/ml) 5,000 units EVERY 12 HOURS SUBQ 05/03/20 21:00 06/14/20 20:59 05/09/20 09:33 Metoprolol Tartrate (Lopressor) 5 mg Q6H PRN IVP Tachycardia 05/03/20 14:15 08/01/20 14:14 Ondansetron HCl (Zofran) 4 mg Q6H PRN IVP Nausea & Vomiting 05/03/20 14:15 06/02/20 14:14 Polyethylene Glycol (Miralax) 17 gm DAILYPRN PRN ORAL Constipation 05/03/20 14:15 06/02/20 14:14 05/05/20 18:26 Promethazine HCl/ Codeine (Phenergan with Codeine) 5 ml Q6H PRN ORAL cough 05/03/20 14:16 06/02/20 14:15 05/04/20 22:30 Trazodone HCl (Desyrel) 50 mg BEDTIME ORAL 05/03/20 21:00 05/31/20 20:59 05/08/20 21:17 Adiel Branham MD May 09, 2020 18:46
--- NOTE | 2020-05-09 19:23 | NUR ---
HAND-OFF: Report given to IRMA Sahu.
--- NOTE | 2020-05-09 19:25 | NUR ---
NURSE NOTES: pt report received from Whitney SOLIS, pt remains stable. pt is alert and oriented times 4, able to follow commands. pt is on criminal court judge showing SR, no acute cardiac abnormalities noted. pt is on 2 L NC sating 99%, no acute resp distress noted. pt bed is low, locked, armed, call light within reach, bed rails up times 3. will follow plan of care.
--- NOTE | 2020-05-09 19:36 | Pulmonology Progress Note ---
Subjective ROS Limited/Unobtainable: No Interval Events: still coughing, no sputum yet, still BUTLER Constitutional: Denies: no symptoms, fever, chills, fatigue, anorexia, drenching sweats, other HEENT: Repors: no symptoms Respiratory: Reports: no symptoms Allergies: Coded Allergies: FISH CONTAINING PRODUCTS (Verified Allergy, Unknown, 05/02/20) Per Patient Objective Last 24 Hour Vital Signs Date Time Temp Pulse Resp B/P (MAP) Pulse Ox O2 Delivery O2 Flow Rate FiO2 05/09/20 16:00 90 05/09/20 15:30 97.7 88 20 104/63 (77) 95 05/09/20 12:00 89 05/09/20 12:00 98.1 88 18 110/64 (79) 96 05/09/20 09:00 Nasal Cannula 2.0 05/09/20 08:00 89 05/09/20 08:00 98.4 89 20 105/61 (76) 95 05/09/20 04:00 84 05/09/20 04:00 97.7 79 20 100/62 (75) 98 05/09/20 00:00 86 05/09/20 00:00 98.2 87 20 100/61 (74) 100 05/08/20 21:00 Nasal Cannula 2.0 05/08/20 20:00 98.1 95 20 104/64 (77) 99 05/08/20 20:00 97 Intake and Output 05/08/20 05/09/20 19:00 07:00 Intake Total 1330 ml 350 ml Output Total 2150 ml 400 ml Balance -820 ml -50 ml Intake Oral 1330 ml 350 ml Output Urine Total 2150 ml 400 ml # Voids 3 # Bowel Movements 1 General Appearance: cachetic HEENT: normocephalic, atraumatic Respiratory: chest wall non-tender, rhonchi - left, rhonchi - right Cardiovascular: normal peripheral pulses, regular rhythm Abdomen: normal bowel sounds, soft, non tender Genitourinary: normal external genitalia Extremities: no clubbing Skin: no lesions Laboratory Tests 05/09/20 04:30: White Blood Count 5.8, Red Blood Count 4.76, Hemoglobin 14.8, Hematocrit 44.8, Mean Corpuscular Volume 94, Mean Corpuscular Hemoglobin 31.1H, Mean Corpuscular Hemoglobin Concent 33.0, Red Cell Distribution Width 12.6, Platelet Count 224, Mean Platelet Volume 5.7L, Neutrophils (%) (Auto) , Lymphocytes (%) (Auto) , Monocytes (%) (Auto) , Eosinophils (%) (Auto) , Basophils (%) (Auto) , Differential Total Cells Counted 100, Neutrophils % (Manual) 45, Lymphocytes % ( Manual) 27, Monocytes % (Manual) 21H, Eosinophils % (Manual) 7H, Basophils % ( Manual) 0, Band Neutrophils 0, Platelet Estimate Adequate, Platelet Morphology Normal, Red Blood Cell Morphology Normal, Sodium Level 137, Potassium Level 4.1 , Chloride Level 101, Carbon Dioxide Level 30, Anion Gap 6, Blood Urea Nitrogen 27H, Creatinine 0.8, Estimat Glomerular Filtration Rate > 60, Glucose Level 90, Calcium Level 9.3 Current Medications Medications (Trade) Dose Ordered Sig/Martha Route PRN Reason Start Time Stop Time Status Last Admin Dose Admin Acetaminophen (Tylenol) 650 mg Q4H PRN ORAL T>100.5 05/03/20 14:15 06/02/20 14:14 Albuterol Sulfate (Proventil MDI) 2 puff Q4H PRN INH Shortness of Breath 05/03/20 14:15 08/01/20 14:14 Dextrose (Dextrose 50%) 25 ml Q30M PRN IV Hypoglycemia 05/03/20 14:30 07/29/20 19:29 Dextrose (Dextrose 50%) 50 ml Q30M PRN IV Hypoglycemia 05/03/20 14:30 07/29/20 19:29 Heparin Sodium (Porcine) (Heparin 5000 units/ml) 5,000 units EVERY 12 HOURS SUBQ 05/03/20 21:00 06/14/20 20:59 05/09/20 09:33 Metoprolol Tartrate (Lopressor) 5 mg Q6H PRN IVP Tachycardia 05/03/20 14:15 08/01/20 14:14 Ondansetron HCl (Zofran) 4 mg Q6H PRN IVP Nausea & Vomiting 05/03/20 14:15 06/02/20 14:14 Polyethylene Glycol (Miralax) 17 gm DAILYPRN PRN ORAL Constipation 05/03/20 14:15 06/02/20 14:14 05/05/20 18:26 Promethazine HCl/ Codeine (Phenergan with Codeine) 5 ml Q6H PRN ORAL cough 05/03/20 14:16 06/02/20 14:15 05/04/20 22:30 Trazodone HCl (Desyrel) 50 mg BEDTIME ORAL 05/03/20 21:00 05/31/20 20:59 05/08/20 21:17 Assessment/Plan Problems: (1) COPD exacerbation (2) Supraventricular tachycardia (3) Severe protein-calorie malnutrition (4) Emphysema of lung (5) Suspected COVID-19 virus infection Assessment & Plan: COVID negative times two Assessment/Plan dc planning COVID negative times 2 COVID PCR pending respiratory treatment taper steroids off iv fouids and IV abx titrate fio2 antitussives f/u ID recommendations. cardiology recommendations appreciated Leighann Underwood MD May 09, 2020 19:36
[2020-05-09 20:00] VITALS: BP 110/62
[2020-05-09] MEDS: TraZODone 50mg tab ORAL SCH (21:02)
[2020-05-10] VITALS: BP 103/67
[2020-05-10 04:00] VITALS: BP 108/53
--- NOTE | 2020-05-10 07:00 | NUR ---
NURSE NOTES: Received report from IRMA Sahu. Patient AAO x4, eating breakfast. No acute distress. Denies pain. Breathing regular and unlabored on 2L NC. R FA 20 g IV intact, patent, no redness. Urinal, call light in reach. Bed low and locked, side rails x2 raised, fall education provided. Discussed offloading sacrum by turning Q2H from [id number] in bed.
--- NOTE | 2020-05-10 07:03 | NUR ---
HAND-OFF: Report given to Whitney SOLIS. Pt remains stable.
[2020-05-10 07:45] VITALS: BP 110/68
[2020-05-10] MEDS: Heparin 5000 units/ml inj SUBQ SCH ×2 (08:29→21:07)
[2020-05-10 08:40] LABS: HEMATOCRIT 45.7 % (42.0-52.0); HEMOGLOBIN 15.3 G/DL (14.2-18.0); MEAN CORPUSCULAR VOLUME 94 FL (80-99); PLATELET COUNT 232 K/UL (150-450); RED BLOOD COUNT 4.86 M/UL (4.70-6.10); RED CELL DISTRIBUTION WIDTH 12.4 % (11.6-14.8)
[2020-05-10 09:11] LABS: ANION GAP 8 mmol/L (5-15); BLOOD UREA NITROGEN 22 mg/dL (7-18); CALCIUM 9.3 MG/DL (8.5-10.1); CARBON DIOXIDE 29 MMOL/L (21-32); CHLORIDE 99 MMOL/L (98-107); CREATININE 0.8 MG/DL (0.55-1.30); POTASSIUM 3.4 MMOL/L (3.5-5.1); SODIUM 136 MMOL/L (136-145)
[2020-05-10 11:30] VITALS: BP 111/66
--- NOTE | 2020-05-10 11:53 | NUR ---
RD ASSESSMENT & RECOMMENDATIONS SEE CARE ACTIVITY FOR COMPLETE ASSESSMENT DAILY ESTIMATED NEEDS: Needs based on COPD, underweight/ 59kg 30-35 kcals/kg 4061-7254 total kcals 1-1.5 g protein/kg 59-89 g total protein 25-30 mL/kg 0376-5496 total fluid mLs NUTRITION DIAGNOSIS: Increased kcal/prot needs R/T underweight status, pulmonary dx as evidenced by BMI of 17.2, pt @ 71% IBW, h/o COPD. CURRENT DIET:REGULAR PO DIET RECOMMENDATIONS: Liberalized REGULAR/ texture as tolerated + Ensure Enlive TID w/ meals ADDITIONAL RECOMMENDATIONS: * Calibrated bedscale wt for accurate CBW * Monitor for continued nausea- add Alpa mann to tray -> w/ continued nausea, consider add zofran ~30 mins prior to meal times * Wound care: ZELALEM BID if tolerated * Ensure Enlive TID w/ meals * Monitor BGs closely while on Decadron, need for carb restriction * MVI x 1 once nausea resolves
--- NOTE | 2020-05-10 13:56 | NUR ---
CASE MANAGEMENT:REVIEW 05/10/20 SI: COPD EXACERBATION. SVT. EMPHYSEMA LUNG 99.5 94 22 111/66 97% ON 2L/NC K-3.4 BUN+22 IS: HEPARIN SQ Q12 TRAZODONE PO QHS : TELEMETRY DCP: HOME/B&C
--- NOTE | 2020-05-10 14:24 | NUR ---
NURSE NOTES: MD Tran updated with K 3.4, no new orders.
--- NOTE | 2020-05-10 15:17 | Cardiology Progress Note ---
Assessment/Plan Assessment/Plan stable, no SVT, in sinus rhythm Subjective Subjective the patient is resting in his bed, he reports that has moderate dyspnea, no palpitations Objective Last 24 Hour Vital Signs Date Time Temp Pulse Resp B/P (MAP) Pulse Ox O2 Delivery O2 Flow Rate FiO2 05/10/20 11:31 91 05/10/20 11:30 99.5 94 22 111/66 (81) 97 05/10/20 08:00 98 05/10/20 07:45 97.9 97 20 110/68 (82) 96 05/10/20 07:34 Nasal Cannula 2.0 05/10/20 04:00 67 05/10/20 04:00 97.7 79 20 108/53 (71) 97 05/10/20 00:00 78 05/10/20 00:00 98.0 86 20 103/67 (79) 96 05/09/20 21:00 Nasal Cannula 2.0 05/09/20 20:00 84 05/09/20 20:00 98.3 82 20 110/62 (78) 95 05/09/20 16:00 90 05/09/20 15:30 97.7 88 20 104/63 (77) 95 EENT: PERRL/EOMI Neck: supple, no JVD Rhythm: NSR Respiratory/Chest: rhonchi - bilaterally Abdomen: soft Intake and Output 05/09/20 05/10/20 19:00 07:00 Intake Total 360 ml Output Total 1850 ml 900 ml Balance -1490 ml -900 ml Intake Oral 360 ml Output Urine Total 1850 ml 900 ml # Bowel Movements 1 1 Laboratory Tests Test 05/10/20 07:25 White Blood Count 5.0 K/UL (4.8-10.8) Red Blood Count 4.86 M/UL (4.70-6.10) Hemoglobin 15.3 G/DL (14.2-18.0) Hematocrit 45.7 % (42.0-52.0) Mean Corpuscular Volume 94 FL (80-99) Mean Corpuscular Hemoglobin 31.4 PG (27.0-31.0) H Mean Corpuscular Hemoglobin Concent 33.4 G/DL (32.0-36.0) Red Cell Distribution Width 12.4 % (11.6-14.8) Platelet Count 232 K/UL (150-450) Mean Platelet Volume 6.3 FL (6.5-10.1) L Neutrophils (%) (Auto) % (45.0-75.0) Lymphocytes (%) (Auto) % (20.0-45.0) Monocytes (%) (Auto) % (1.0-10.0) Eosinophils (%) (Auto) % (0.0-3.0) Basophils (%) (Auto) % (0.0-2.0) Differential Total Cells Counted 100 Neutrophils % (Manual) 45 % (45-75) Lymphocytes % (Manual) 31 % (20-45) Monocytes % (Manual) 22 % (1-10) H Eosinophils % (Manual) 2 % (0-3) Basophils % (Manual) 0 % (0-2) Band Neutrophils 0 % (0-8) Platelet Estimate Adequate Platelet Morphology Normal Red Blood Cell Morphology Normal Sodium Level 136 MMOL/L (136-145) Potassium Level 3.4 MMOL/L (3.5-5.1) L Chloride Level 99 MMOL/L (98-107) Carbon Dioxide Level 29 MMOL/L (21-32) Anion Gap 8 mmol/L (5-15) Blood Urea Nitrogen 22 mg/dL (7-18) H Creatinine 0.8 MG/DL (0.55-1.30) Estimat Glomerular Filtration Rate > 60 mL/min (>60) Glucose Level 97 MG/DL (74-106) Calcium Level 9.3 MG/DL (8.5-10.1) Delphine Ibarra MD May 10, 2020 15:17
--- NOTE | 2020-05-10 15:22 | Internal Med Progress Note ---
Subjective Date of Service: May 10, 2020 Physician Name Mamaduo Panda Attending Physician Vishal Tran MD Current Medications Medications (Trade) Dose Ordered Sig/Martha Route PRN Reason Start Time Stop Time Status Last Admin Dose Admin Acetaminophen (Tylenol) 650 mg Q4H PRN ORAL T>100.5 05/03/20 14:15 06/02/20 14:14 Albuterol Sulfate (Proventil MDI) 2 puff Q4H PRN INH Shortness of Breath 05/03/20 14:15 08/01/20 14:14 Dextrose (Dextrose 50%) 25 ml Q30M PRN IV Hypoglycemia 05/03/20 14:30 07/29/20 19:29 Dextrose (Dextrose 50%) 50 ml Q30M PRN IV Hypoglycemia 05/03/20 14:30 07/29/20 19:29 Heparin Sodium (Porcine) (Heparin 5000 units/ml) 5,000 units EVERY 12 HOURS SUBQ 05/03/20 21:00 06/14/20 20:59 05/10/20 08:29 Metoprolol Tartrate (Lopressor) 5 mg Q6H PRN IVP Tachycardia 05/03/20 14:15 08/01/20 14:14 Ondansetron HCl (Zofran) 4 mg Q6H PRN IVP Nausea & Vomiting 05/03/20 14:15 06/02/20 14:14 Polyethylene Glycol (Miralax) 17 gm DAILYPRN PRN ORAL Constipation 05/03/20 14:15 06/02/20 14:14 05/05/20 18:26 Promethazine HCl/ Codeine (Phenergan with Codeine) 5 ml Q6H PRN ORAL cough 05/03/20 14:16 06/02/20 14:15 05/04/20 22:30 Trazodone HCl (Desyrel) 50 mg BEDTIME ORAL 05/03/20 21:00 05/31/20 20:59 05/09/20 21:02 Allergies: Coded Allergies: FISH CONTAINING PRODUCTS (Verified Allergy, Unknown, 05/02/20) Per Patient ROS Limited/Unobtainable: No Constitutional: Reports: no symptoms HEENT: Reports: no symptoms Cardiovascular: Reports: no symptoms Respiratory: Reports: no symptoms Gastrointestinal/Abdominal: Reports: no symptoms Genitourinary: Reports: no symptoms Neurologic/Psychiatric: Reports: no symptoms Subjective 64 YO M admitted with shortness of breath. Now COPD exacerbation. Cover for Int Juanpablo-Dr Tran Objective Last Vital Signs Date Time Temp Pulse Resp B/P (MAP) Pulse Ox O2 Delivery O2 Flow Rate FiO2 05/10/20 11:31 91 05/10/20 11:30 99.5 22 111/66 (81) 97 05/10/20 07:34 Nasal Cannula 2.0 Laboratory Tests Test 05/10/20 07:25 White Blood Count 5.0 K/UL (4.8-10.8) Red Blood Count 4.86 M/UL (4.70-6.10) Hemoglobin 15.3 G/DL (14.2-18.0) Hematocrit 45.7 % (42.0-52.0) Mean Corpuscular Volume 94 FL (80-99) Mean Corpuscular Hemoglobin 31.4 PG (27.0-31.0) H Mean Corpuscular Hemoglobin Concent 33.4 G/DL (32.0-36.0) Red Cell Distribution Width 12.4 % (11.6-14.8) Platelet Count 232 K/UL (150-450) Mean Platelet Volume 6.3 FL (6.5-10.1) L Neutrophils (%) (Auto) % (45.0-75.0) Lymphocytes (%) (Auto) % (20.0-45.0) Monocytes (%) (Auto) % (1.0-10.0) Eosinophils (%) (Auto) % (0.0-3.0) Basophils (%) (Auto) % (0.0-2.0) Differential Total Cells Counted 100 Neutrophils % (Manual) 45 % (45-75) Lymphocytes % (Manual) 31 % (20-45) Monocytes % (Manual) 22 % (1-10) H Eosinophils % (Manual) 2 % (0-3) Basophils % (Manual) 0 % (0-2) Band Neutrophils 0 % (0-8) Platelet Estimate Adequate Platelet Morphology Normal Red Blood Cell Morphology Normal Sodium Level 136 MMOL/L (136-145) Potassium Level 3.4 MMOL/L (3.5-5.1) L Chloride Level 99 MMOL/L (98-107) Carbon Dioxide Level 29 MMOL/L (21-32) Anion Gap 8 mmol/L (5-15) Blood Urea Nitrogen 22 mg/dL (7-18) H Creatinine 0.8 MG/DL (0.55-1.30) Estimat Glomerular Filtration Rate > 60 mL/min (>60) Glucose Level 97 MG/DL (74-106) Calcium Level 9.3 MG/DL (8.5-10.1) Intake and Output 05/09/20 05/10/20 19:00 07:00 Intake Total 360 ml Output Total 1850 ml 900 ml Balance -1490 ml -900 ml Intake Oral 360 ml Output Urine Total 1850 ml 900 ml # Bowel Movements 1 1 Objective PHYSICAL EXAMINATION: GENERAL: The patient is awake, responsive, in no acute distress, chronically ill-appearing. HEAD AND NECK: Pupils are equal and reactive to light. Extraocular movements intact. Neck was supple. No JVD. LUNGS: Good air entry. No wheezing or rales. HEART: S1, S2. Regular rhythm. No murmur or gallops. ABDOMEN: Soft, nondistended, nontender. Positive bowel sounds. EXTREMITIES: No cyanosis, clubbing, or edema. NEUROLOGIC: Cranial nerves II through XII grossly intact. Motor is 5/5 in all extremities. Gait was not assessed due to the patient's status. RECTAL: Refused and deferred. GENITOURINARY: Refused and deferred. PSYCHIATRIC: Mood and affect is intact. Assessment/Plan Assessment/Plan ASSESSMENT: 1. Shortness of breath, most likely secondary to the acute COPD exacerbation. 2. COVID-19 = Negative. 3. Chronic smoker with emphysematous lung. 4. Severe protein-calorie malnutrition. 5. Inability to ambulate. PLAN: 1. Admit the patient to medical floor. We will follow up with 2. antibiotic = vanco, azithromycin and Rocephin. 3. Code status is Full Code. 4. DVT prophylaxis, heparin subcu. We 5. Dr. Underwood =Pulmonary/Critical Care 6. HIV test=neg 7. Discharge planning: Return to Board and Care Mamadou Panda MD May 10, 2020 15:22
--- NOTE | 2020-05-10 15:29 | NUR ---
NURSE NOTES: Received TORB from MD Tran for KCl 40 meq PO one time.
[2020-05-10 16:00] VITALS: BP 102/60
--- NOTE | 2020-05-10 19:19 | NUR ---
HAND-OFF: Report given to IRMA Alexandre.
--- NOTE | 2020-05-10 19:29 | NUR ---
NURSE NOTES: Received report from IRMA Parker. Patient is awake, alert and oriented x 4. On regular diet, instructed and amenable. classroom monitor is in placed, shows Sinus rhythm with no chest pain reported. With oxygen via nasal cannula @ 2Lpm. On fall and seizure precaution, padded side rails. IV site is on right forearm G-20 saline lock that is patent and intact. Safety measures are in placed, bed in lowest and locked position. Side rails up x 2, call light button and bedside table within reach, instructed to call for any assistance needed, will continue plan of care.
--- NOTE | 2020-05-10 19:50 | Pulmonology Progress Note ---
Subjective ROS Limited/Unobtainable: No Interval Events: still coughing, no sputum yet, still BUTLER Constitutional: Denies: no symptoms, fever, chills, fatigue, anorexia, drenching sweats, other HEENT: Repors: no symptoms Respiratory: Reports: no symptoms Allergies: Coded Allergies: FISH CONTAINING PRODUCTS (Verified Allergy, Unknown, 05/02/20) Per Patient Objective Last 24 Hour Vital Signs Date Time Temp Pulse Resp B/P (MAP) Pulse Ox O2 Delivery O2 Flow Rate FiO2 05/10/20 16:00 98.4 93 20 102/60 (74) 96 05/10/20 11:31 91 05/10/20 11:30 99.5 94 22 111/66 (81) 97 05/10/20 08:00 98 05/10/20 07:45 97.9 97 20 110/68 (82) 96 05/10/20 07:34 Nasal Cannula 2.0 05/10/20 04:00 67 05/10/20 04:00 97.7 79 20 108/53 (71) 97 05/10/20 00:00 78 05/10/20 00:00 98.0 86 20 103/67 (79) 96 05/09/20 21:00 Nasal Cannula 2.0 05/09/20 20:00 84 05/09/20 20:00 98.3 82 20 110/62 (78) 95 Intake and Output 05/09/20 05/10/20 18:59 06:59 Intake Total 360 ml Output Total 1850 ml 900 ml Balance -1490 ml -900 ml Intake Oral 360 ml Output Urine Total 1850 ml 900 ml # Bowel Movements 1 1 General Appearance: cachetic HEENT: normocephalic, atraumatic Respiratory: chest wall non-tender, rhonchi - left, rhonchi - right Cardiovascular: normal peripheral pulses, regular rhythm Abdomen: normal bowel sounds, soft, non tender Genitourinary: normal external genitalia Extremities: no clubbing Skin: no lesions Laboratory Tests 05/10/20 07:25: White Blood Count 5.0, Red Blood Count 4.86, Hemoglobin 15.3, Hematocrit 45.7, Mean Corpuscular Volume 94, Mean Corpuscular Hemoglobin 31.4H, Mean Corpuscular Hemoglobin Concent 33.4, Red Cell Distribution Width 12.4, Platelet Count 232, Mean Platelet Volume 6.3L, Neutrophils (%) (Auto) , Lymphocytes (%) (Auto) , Monocytes (%) (Auto) , Eosinophils (%) (Auto) , Basophils (%) (Auto) , Differential Total Cells Counted 100, Neutrophils % (Manual) 45, Lymphocytes % ( Manual) 31, Monocytes % (Manual) 22H, Eosinophils % (Manual) 2, Basophils % ( Manual) 0, Band Neutrophils 0, Platelet Estimate Adequate, Platelet Morphology Normal, Red Blood Cell Morphology Normal, Sodium Level 136, Potassium Level 3.4L , Chloride Level 99, Carbon Dioxide Level 29, Anion Gap 8, Blood Urea Nitrogen 22H, Creatinine 0.8, Estimat Glomerular Filtration Rate > 60, Glucose Level 97, Calcium Level 9.3 Current Medications Medications (Trade) Dose Ordered Sig/Martha Route PRN Reason Start Time Stop Time Status Last Admin Dose Admin Acetaminophen (Tylenol) 650 mg Q4H PRN ORAL T>100.5 05/03/20 14:15 06/02/20 14:14 Albuterol Sulfate (Proventil MDI) 2 puff Q4H PRN INH Shortness of Breath 05/03/20 14:15 08/01/20 14:14 Dextrose (Dextrose 50%) 25 ml Q30M PRN IV Hypoglycemia 05/03/20 14:30 07/29/20 19:29 Dextrose (Dextrose 50%) 50 ml Q30M PRN IV Hypoglycemia 05/03/20 14:30 07/29/20 19:29 Heparin Sodium (Porcine) (Heparin 5000 units/ml) 5,000 units EVERY 12 HOURS SUBQ 05/03/20 21:00 06/14/20 20:59 05/10/20 08:29 Metoprolol Tartrate (Lopressor) 5 mg Q6H PRN IVP Tachycardia 05/03/20 14:15 08/01/20 14:14 Ondansetron HCl (Zofran) 4 mg Q6H PRN IVP Nausea & Vomiting 05/03/20 14:15 06/02/20 14:14 Polyethylene Glycol (Miralax) 17 gm DAILYPRN PRN ORAL Constipation 05/03/20 14:15 06/02/20 14:14 05/05/20 18:26 Promethazine HCl/ Codeine (Phenergan with Codeine) 5 ml Q6H PRN ORAL cough 05/03/20 14:16 06/02/20 14:15 05/04/20 22:30 Trazodone HCl (Desyrel) 50 mg BEDTIME ORAL 05/03/20 21:00 05/31/20 20:59 05/09/20 21:02 Assessment/Plan Problems: (1) COPD exacerbation (2) Supraventricular tachycardia (3) Severe protein-calorie malnutrition (4) Emphysema of lung (5) Suspected COVID-19 virus infection Assessment & Plan: COVID negative times two Assessment/Plan dc planning COVID negative times 2 COVID PCR pending respiratory treatment taper steroids off iv fouids and IV abx titrate fio2 antitussives f/u ID recommendations. cardiology recommendations appreciated Leighann Underwood MD May 10, 2020 19:50
--- NOTE | 2020-05-10 19:50 | NUR ---
NURSE NOTES: technology sales specialistPillo (Stevan) informed me about 13 beats of v-tach on this patient. RN assessed the patient, at this time, patient is on bed, awake and watching television, denies any chest pain, shortness of breath, dizziness nor any palpitation, checked capillary refill <3 seconds, vitals were taken BP-105/58. AZ-81, RR-20, O2 Sat 96%. Will informed Dr. Presley. Instructed patient to call for any unusual feeling or discomfort and advised to ask for help in any assistance needed. Will continue for further episode of this abnormal rhythm.
[2020-05-10 20:00] VITALS: BP 105/58
--- NOTE | 2020-05-10 21:00 | NUR ---
NURSE NOTES: Notified Dr. Presley about the episode of V-tach, no orders was made. Will continue to monitor the patient. At this time, patient is in stable condition, without complains made at the moment.
[2020-05-10] MEDS: TraZODone 50mg tab ORAL SCH (21:06)
[2020-05-11] VITALS: BP 113/65
--- NOTE | 2020-05-11 | NUR ---
NURSE NOTES: Titrated oxygen to 1Lpm, monitored for any signs of difficulty in breathing or desaturation, tolerated well. At this time, patient's oxygen saturation is 95-96%. Will continue to monitor.
[2020-05-11 04:00] VITALS: BP 109/60
[2020-05-11 07:30] LABS: HEMATOCRIT 44.9 % (42.0-52.0); HEMOGLOBIN 14.7 G/DL (14.2-18.0); MEAN CORPUSCULAR VOLUME 95 FL (80-99); PLATELET COUNT 237 K/UL (150-450); RED BLOOD COUNT 4.74 M/UL (4.70-6.10); RED CELL DISTRIBUTION WIDTH 12.7 % (11.6-14.8); WHITE BLOOD COUNT 4.8 K/UL (4.8-10.8)
--- NOTE | 2020-05-11 07:31 | NUR ---
HAND-OFF: Report given to Rommel/Bren RN. Patient is awake, on bed in stable condition, without complaints made at this time. RN made aware of order to transfer to Med-Surg floor, but still no bed available at this time. Plan of care endorsed.
--- NOTE | 2020-05-11 07:45 | NUR ---
NURSE NOTES: Received patient in bed. Awake, A/O x4. On 1 lpm via NC. Denies pain at this time. IV in the Right forearm, site intact. Heart monitor in place. Bed low and locked, side rails up x2.
[2020-05-11 07:52] LABS: ANION GAP 8 mmol/L (5-15); BLOOD UREA NITROGEN 19 mg/dL (7-18); CALCIUM 9.3 MG/DL (8.5-10.1); CARBON DIOXIDE 29 MMOL/L (21-32); CHLORIDE 99 MMOL/L (98-107); CREATININE 0.8 MG/DL (0.55-1.30); POTASSIUM 4.1 MMOL/L (3.5-5.1); SODIUM 136 MMOL/L (136-145)
[2020-05-11 08:00] VITALS: BP 95/58
[2020-05-11] MEDS: Heparin 5000 units/ml inj SUBQ SCH (08:59)
--- NOTE | 2020-05-11 11:37 | NUR ---
*-*DISCHARGE PLANNING*-* PATIENT HAS BEEN REFERRED TO: [facility] ARRIAG[facility] P: [phone]
--- NOTE | 2020-05-11 11:58 | NUR ---
INSURANCE UPDATED CLINICALS FROM 05/06 TO PRESENT AND REVIEWS HAVE BEEN FAXED TO [facility] P: [phone] F: [phone]
[2020-05-11 12:00] VITALS: BP 99/55
--- NOTE | 2020-05-11 12:13 | Pulmonology Progress Note ---
Subjective ROS Limited/Unobtainable: No Interval Events: still coughing, no sputum yet, still BUTLER Constitutional: Denies: no symptoms, fever, chills, fatigue, anorexia, drenching sweats, other HEENT: Repors: no symptoms Respiratory: Reports: no symptoms Allergies: Coded Allergies: FISH CONTAINING PRODUCTS (Verified Allergy, Unknown, 05/02/20) Per Patient Objective Last 24 Hour Vital Signs Date Time Temp Pulse Resp B/P (MAP) Pulse Ox O2 Delivery O2 Flow Rate FiO2 05/11/20 12:00 98.8 70 18 99/55 (70) 95 05/11/20 08:29 Nasal Cannula 1.0 05/11/20 08:00 75 05/11/20 08:00 97.9 70 18 95/58 (70) 96 05/11/20 04:00 98.4 73 20 109/60 (76) 98 05/11/20 04:00 73 05/11/20 00:00 71 05/11/20 00:00 97.9 81 20 113/65 (81) 96 05/10/20 21:00 Nasal Cannula 1.0 05/10/20 20:04 82 05/10/20 20:00 98.1 81 20 105/58 (74) 96 05/10/20 19:50 102 05/10/20 16:00 98.4 93 20 102/60 (74) 96 Intake and Output 05/10/20 05/11/20 18:59 06:59 Intake Total 480 ml 360 ml Output Total 750 ml Balance -270 ml 360 ml Intake Oral 480 ml Other 360 ml Output Urine Total 750 ml # Voids 4 # Bowel Movements 1 1 General Appearance: cachetic HEENT: normocephalic, atraumatic Respiratory: chest wall non-tender, rhonchi - left, rhonchi - right Cardiovascular: normal peripheral pulses, regular rhythm Abdomen: normal bowel sounds, soft, non tender Genitourinary: normal external genitalia Extremities: no clubbing Skin: no lesions Laboratory Tests 05/11/20 06:50: White Blood Count 4.8, Red Blood Count 4.74, Hemoglobin 14.7, Hematocrit 44.9, Mean Corpuscular Volume 95, Mean Corpuscular Hemoglobin 31.0, Mean Corpuscular Hemoglobin Concent 32.7, Red Cell Distribution Width 12.7, Platelet Count 237, Mean Platelet Volume 6.4L, Neutrophils (%) (Auto) , Lymphocytes (%) (Auto) , Monocytes (%) (Auto) , Eosinophils (%) (Auto) , Basophils (%) (Auto) , Differential Total Cells Counted 100, Neutrophils % (Manual) 56, Lymphocytes % ( Manual) 17L, Monocytes % (Manual) 23H, Eosinophils % (Manual) 4H, Basophils % ( Manual) 0, Band Neutrophils 0, Platelet Estimate Adequate, Platelet Morphology Normal, Red Blood Cell Morphology Normal, Sodium Level 136, Potassium Level 4.1 , Chloride Level 99, Carbon Dioxide Level 29, Anion Gap 8, Blood Urea Nitrogen 19H, Creatinine 0.8, Estimat Glomerular Filtration Rate > 60, Glucose Level 116H , Calcium Level 9.3 Current Medications Medications (Trade) Dose Ordered Sig/Martha Route PRN Reason Start Time Stop Time Status Last Admin Dose Admin Acetaminophen (Tylenol) 650 mg Q4H PRN ORAL T>100.5 05/03/20 14:15 06/02/20 14:14 Albuterol Sulfate (Proventil MDI) 2 puff Q4H PRN INH Shortness of Breath 05/03/20 14:15 08/01/20 14:14 Dextrose (Dextrose 50%) 25 ml Q30M PRN IV Hypoglycemia 05/03/20 14:30 07/29/20 19:29 Dextrose (Dextrose 50%) 50 ml Q30M PRN IV Hypoglycemia 05/03/20 14:30 07/29/20 19:29 Heparin Sodium (Porcine) (Heparin 5000 units/ml) 5,000 units EVERY 12 HOURS SUBQ 05/03/20 21:00 06/14/20 20:59 05/11/20 08:59 Metoprolol Tartrate (Lopressor) 5 mg Q6H PRN IVP Tachycardia 05/03/20 14:15 08/01/20 14:14 Ondansetron HCl (Zofran) 4 mg Q6H PRN IVP Nausea & Vomiting 05/03/20 14:15 06/02/20 14:14 Polyethylene Glycol (Miralax) 17 gm DAILYPRN PRN ORAL Constipation 05/03/20 14:15 06/02/20 14:14 05/05/20 18:26 Promethazine HCl/ Codeine (Phenergan with Codeine) 5 ml Q6H PRN ORAL cough 05/03/20 14:16 06/02/20 14:15 05/04/20 22:30 Trazodone HCl (Desyrel) 50 mg BEDTIME ORAL 05/03/20 21:00 05/31/20 20:59 05/10/20 21:06 Assessment/Plan Problems: (1) COPD exacerbation (2) Supraventricular tachycardia (3) Severe protein-calorie malnutrition (4) Emphysema of lung (5) Suspected COVID-19 virus infection Assessment & Plan: COVID negative times two Assessment/Plan no new complains dc planning COVID negative times 2 COVID PCR pending respiratory treatment taper steroids titrate fio2 antitussives f/u ID recommendations. cardiology recommendations appreciated Leighann Underwood MD May 11, 2020 12:12
--- NOTE | 2020-05-11 12:50 | NUR ---
*-*DISCHARGE PLANNING*-* PATIENT HAS BEEN REFERRED TO: CATARINA ARRIAG[facility] P: [phone] FOR NURSE TO NURSE REPORT ROOM# 24 SKILLED [facility] TRANSPORTATION SET FOR NEXT AVAILABLE S/W [facility] [id number]. PER CASSANDRA WITH [facility], WILL CALL BACK WITH WHO WILL BE TRANSFERRING PATIENT TO [facility] [place]. PLACED A CALL TO PATIENTS SISTER PAO HAWKINS, NUMBER ON FACESHEET DISCONNECTED, UNABLE TO LEAVE VOICE MESSAGE
--- NOTE | 2020-05-11 12:53 | NUR ---
DISCHARGE PLANNING S/W PATIENTS SISTER PAO [phone] IN RE TO PATIENTS DC. PER PAO, SHE IS IN AGREEMENT TO SNF PLACEMENT FOR PATIENTS.
--- NOTE | 2020-05-11 13:06 | Infectious Diseases Prog Note ---
Assessment/Plan Assessment: COPD exacerbation-COVID 19 neg x2 -05/06 CXR: No acute process. COPD changes -05/03 SARS-COV2 PCR neg -05/01 Sp cx normal resp gary -04/30 CXR: No acute process SARS-COV2 PCR neg HIV : neg Afebrile NO leukocytosis CONS/Diphteroids bacteremia- likely contaminant -04/30 Bcx 1/4 diphteroids, 1/4 CONS; 05/02 Bcx Neg COPD/emphysema tobacco abuse ETOH abuse ?treated TB Plan: -Continue to monitor off abx -05/04 SP Ceftriaxone and Azithromycin #5/5, IV Vancomycin #3 -f/u cx -Monitor CBC/CMP, temperatures -COVID19 neg x2; ok to dc iso Thank you for consulting [facility]. Will continue to follow along with you. Alex toth RN. Subjective Allergies: Coded Allergies: FISH CONTAINING PRODUCTS (Verified Allergy, Unknown, 05/02/20) Per Patient afebrile at 1l nC no leuokocytosis Objective Last 24 Hour Vital Signs Date Time Temp Pulse Resp B/P (MAP) Pulse Ox O2 Delivery O2 Flow Rate FiO2 05/11/20 12:00 98.8 70 18 99/55 (70) 95 05/11/20 12:00 83 05/11/20 08:29 Nasal Cannula 1.0 05/11/20 08:00 75 05/11/20 08:00 97.9 70 18 95/58 (70) 96 05/11/20 04:00 98.4 73 20 109/60 (76) 98 05/11/20 04:00 73 05/11/20 00:00 71 05/11/20 00:00 97.9 81 20 113/65 (81) 96 05/10/20 21:00 Nasal Cannula 1.0 05/10/20 20:04 82 05/10/20 20:00 98.1 81 20 105/58 (74) 96 05/10/20 19:50 102 05/10/20 16:00 98.4 93 20 102/60 (74) 96 Height (Feet): 6 Height (Inches): 1.00 Weight (Pounds): 135 GENERAL: The patient is awake, responsive, in no acute distress, chronically ill-appearing. LUNGS: Good air entry. No wheezing or rales. HEART: S1, S2. Regular rhythm. No murmur or gallops. ABDOMEN: Soft, nondistended, nontender. Positive bowel sounds. EXTREMITIES: No cyanosis, clubbing, or edema. Laboratory Tests Test 05/11/20 06:50 White Blood Count 4.8 K/UL (4.8-10.8) Red Blood Count 4.74 M/UL (4.70-6.10) Hemoglobin 14.7 G/DL (14.2-18.0) Hematocrit 44.9 % (42.0-52.0) Mean Corpuscular Volume 95 FL (80-99) Mean Corpuscular Hemoglobin 31.0 PG (27.0-31.0) Mean Corpuscular Hemoglobin Concent 32.7 G/DL (32.0-36.0) Red Cell Distribution Width 12.7 % (11.6-14.8) Platelet Count 237 K/UL (150-450) Mean Platelet Volume 6.4 FL (6.5-10.1) L Neutrophils (%) (Auto) % (45.0-75.0) Lymphocytes (%) (Auto) % (20.0-45.0) Monocytes (%) (Auto) % (1.0-10.0) Eosinophils (%) (Auto) % (0.0-3.0) Basophils (%) (Auto) % (0.0-2.0) Differential Total Cells Counted 100 Neutrophils % (Manual) 56 % (45-75) Lymphocytes % (Manual) 17 % (20-45) L Monocytes % (Manual) 23 % (1-10) H Eosinophils % (Manual) 4 % (0-3) H Basophils % (Manual) 0 % (0-2) Band Neutrophils 0 % (0-8) Platelet Estimate Adequate Platelet Morphology Normal Red Blood Cell Morphology Normal Sodium Level 136 MMOL/L (136-145) Potassium Level 4.1 MMOL/L (3.5-5.1) Chloride Level 99 MMOL/L (98-107) Carbon Dioxide Level 29 MMOL/L (21-32) Anion Gap 8 mmol/L (5-15) Blood Urea Nitrogen 19 mg/dL (7-18) H Creatinine 0.8 MG/DL (0.55-1.30) Estimat Glomerular Filtration Rate > 60 mL/min (>60) Glucose Level 116 MG/DL (74-106) H Calcium Level 9.3 MG/DL (8.5-10.1) Current Medications Medications (Trade) Dose Ordered Sig/Martha Route PRN Reason Start Time Stop Time Status Last Admin Dose Admin Acetaminophen (Tylenol) 650 mg Q4H PRN ORAL T>100.5 05/03/20 14:15 06/02/20 14:14 Albuterol Sulfate (Proventil MDI) 2 puff Q4H PRN INH Shortness of Breath 05/03/20 14:15 08/01/20 14:14 Dextrose (Dextrose 50%) 25 ml Q30M PRN IV Hypoglycemia 05/03/20 14:30 07/29/20 19:29 Dextrose (Dextrose 50%) 50 ml Q30M PRN IV Hypoglycemia 05/03/20 14:30 07/29/20 19:29 Heparin Sodium (Porcine) (Heparin 5000 units/ml) 5,000 units EVERY 12 HOURS SUBQ 05/03/20 21:00 06/14/20 20:59 05/11/20 08:59 Metoprolol Tartrate (Lopressor) 5 mg Q6H PRN IVP Tachycardia 05/03/20 14:15 08/01/20 14:14 Ondansetron HCl (Zofran) 4 mg Q6H PRN IVP Nausea & Vomiting 05/03/20 14:15 06/02/20 14:14 Polyethylene Glycol (Miralax) 17 gm DAILYPRN PRN ORAL Constipation 05/03/20 14:15 06/02/20 14:14 05/05/20 18:26 Promethazine HCl/ Codeine (Phenergan with Codeine) 5 ml Q6H PRN ORAL cough 05/03/20 14:16 06/02/20 14:15 05/04/20 22:30 Trazodone HCl (Desyrel) 50 mg BEDTIME ORAL 05/03/20 21:00 05/31/20 20:59 05/10/20 21:06 Alexsandra Potts M.D. May 11, 2020 13:05
--- NOTE | 2020-05-11 13:32 | NUR ---
NURSE NOTES: Marilyjailene Lakhani (sister) called to make aware of discharge to SNF. No answer, left voicemail.
--- NOTE | 2020-05-11 13:58 | NUR ---
DISCHARGE PLAN CALL RECEIVED FROM JINA WITH [facility] TO INFORM [facility] WILL TRANSPORT PATIENT WITH ETA AT APPROX 1500 PM
--- NOTE | 2020-05-11 14:12 | NUR ---
NURSE NOTES: Report given to Grace Luque at [facility].
--- NOTE | 2020-05-11 14:23 | NUR ---
*-*DISCHARGE PLANNED*-* PATIENT HAS BEEN REFERRED TO: CATAR[facility] ARRIAGA P: [phone] FOR NURSE TO NURSE REPORT ROOM# 24 SKILLED [facility] TRANSPORTATION SET FOR 1500PM S/W [facility] [id number]. PLACED A CALL TO PATIENTS SISTER PAO HAWKINS, WHO IS IN AGREEMENT WITH DISCHARGE PLAN.
--- NOTE | 2020-05-11 14:47 | NUR ---
NURSE NOTES: salvage supervisor and security came up to return patient's money kept in safe.
--- NOTE | 2020-05-11 14:55 | NUR ---
NURSE NOTES: Patient d/c via ambulance. VSS, patient stable condition. Denies pain at this time. On room air. Belongings list verified, IV site removed, ID band removed.
--- NOTE | 2020-05-12 12:56 | Discharge Summary ---
Discharge Summary Discharge Summary _ DATE OF ADMISSION: 04/30/2020 DATE OF DISCHARGE: 05/11/2020 DISCHARGED BY: Dr. Tran REASON FOR ADMISSION: 64 years old male with past medical history of COPD, seizure disorder, Chronic smoker, prior history of treated tuberculosis, presented to ED complaining of shortness of breath and cough with yellow phlegm. Patient denied fever, chills. Patient denied nausea vomiting or diarrhea. Noted elevated troponin 0 0.196 EKG revealed sinus rhythm Patient denied chest pain. Shortly after initial evaluation emergency room, patient was admitted with shortness of breath possible due to acute COPD exacerbation as well as rule out COVID-19 infection. CONSULTANTS: client services vice president Dr. Presley pulmonary Dr. Underwood ID specialist Dr. Potts [facility] COURSE: Patient admitted to telemetry floor. Patient initially was kept in isolation. COVID-19 by PCR on 716 and repeated on 719 was not detected. Isolation discontinued. Blood culture revealed staph hemolyticus and diphtheroids. Repeated blood culture on 718 were negative. Initial blood culture was most likely contaminant as per ID recommended as per ID specialist. Sputum culture was negative. Patient received empiric antibiotic for initially started with clinical probiotics. Patient remained afebrile no leukocytosis Supplemental oxygen provided and titrated to keep pulse oximetry above 90%. Pulmonary toilet provided. Patient is restarted on the IV steroids which were gradually tapered. The biotic as mentioned as per ID specialist recommendation. Sputum culture was negative. DVT prophylaxis provided. Antitussive provided as needed. DVT prophylaxis provided. Blood pressure was managed with beta-indio. Patient noted to have supraventricular tachycardia was placed on a beta-indio heart rate improved. Serial troponin monitor trended down and eventually resolved. EKG done during tachycardia revealed supraventricular tachycardia with ST segment changes. Patient noted to have troponin abnormality likely due to demand ischemia she will he was profoundly tachycardic during SVT repeat EKG after sign supraventricular tachycardia resolved revealed that the ST changes resolved. Echocardiogram revealed poor visualization but no but preserved ejection fraction and no wall motion abnormality to the extent visualized. Protein supplements provided as per registered dietitian recommendation. Patient declined nicotine patch supportive care provided. Placement was found and secured at the [facility] facility patient was stable for transfer FINAL DIAGNOSES: COPD exacerbation Suspected COVID-19 -ruled out Supraventricular tachycardia History of TB , status post treatment Severe protein calorie malnutrition Emphysema DISCHARGE MEDICATIONS: See Medication Reconciliation list. DISCHARGE INSTRUCTIONS: Patient was discharged to the [facility] facility. Follow up with medical doctor at the facility. I have been assigned to dictate discharge summary for this account. I was not involved in the patient's management. Cee Cuevas NP May 12, 2020 12:55
== END 2020-05-11 14:55 | DRG 140 ==
LOC: EDBD 14:10 → EMR 15:18 → 4E 16:45 → EDBEDREQ 17:28 → 2E 05-03 06:14
DX: J44.1 Chronic obstructive pulmonary disease with (acute) exacerbation (principal); I47.1 Supraventricular tachycardia; E43 Unspecified severe protein-calorie malnutrition; I95.9 Hypotension, unspecified; Z20.828 Contact with and (suspected) exposure to other viral communicable diseases; F17.210 Nicotine dependence, cigarettes, uncomplicated; Z86.11 Personal history of tuberculosis; R26.2 Difficulty in walking, not elsewhere classified; F10.10 Alcohol abuse, uncomplicated
CPT/HCPCS: 36415; 71045; 80048; 80053; 80069; 80202; 83735; 84100; 84484; 85007; 85025; 85651; 86140; 86703; 87040; 87070; 87081; 87181; 87205; 93005; 93306; 96365; 96375; 99285; J2405; J7030; J8499